=== PATIENT | female | born 1960 | race African-American/Black ===

== ENCOUNTER 2021-04-15 14:56 | Inpatient (IN) ==
[2021-04-15 17:25] LABS: Hemoglobin 10.3 GM/DL (12.0-16.0); Immature Granulocytes % 0.8 %; Immature Granulocytes Absolute 0.04 #; Lymphocytes # 0.8 10*3/uL (1.4-4.0); Mean Corpuscular HGB Conc 31.2 GM/DL (32-36); Mean Corpuscular Volume 81.3 FL (87-102); Mean Platelet Volume 11.9 FL (9.6-12.0); Monocytes % 3.6 % (1.7-12.7); Neutrophils % 79.6 % (38.7-73.9); Platelet Count 210 T/CUMM (130-400); Red Blood Count 4.06 MC/CUMM (3.8-5.5); Red Cell Distribution Width 14.9 % (9.3-17.3)
[2021-04-15 17:34] LABS: Bilirubin,Urine Negative (Negative); Blood, Urine Large mg/dL (Negative); Glucose,Urine (UA) >=500 mg/dL (Negative); Ketones,Urine Negative (Negative); Mucus,Urine Occasional /LPF (Occasional); Nitrite,Urine Negative (Negative); Protein,Urine 100 MG/DL; RBC,Urine 3 /HPF (0-4); Squamous Epithelial Cell,Urine Occasional /HPF (0-10); Urine Appearance Slightly Hazy (Clear); Urine Color Yellow (Yellow); Urine Specific Gravity 1.015 (1.001-1.035); Urine Urobilinogen < 2.0 EU/DL (0.2-1.0)
[2021-04-15 17:40] LABS: Albumin 3.5 G/DL (3.4-5.0); Bilirubin,Total 0.5 MG/DL (0.20-1.00); Osmolality,Calculated 290.1 MOS/KG (273-304); PT Patient Result 10.9 SECS (10.5-12.0); Partial Thromboplastin Time 26.7 SECS (23.9-33.8); Potassium 4.5 MMOL/L (3.5-5.1); Total Protein 7.2 G/DL (6.4-8.2)
[2021-04-15] MEDS ORDERED: SODIUM CHLORIDE 0.9% 1,000 ML IV STA (17:44)
[2021-04-15 19:03] LABS: Band Neutrophils 2 % (0-10); Lymphocytes 9 % (20-55); Microcytosis 1+; Segmented Neutrophils 87 % (50-85); Total Cells Counted 100
[2021-04-15 19:04] LABS: Platelet Estimate Normal
[2021-04-15] MEDS ORDERED: ACETAMINOPHEN 325 MG TABLET PO PRN (21:32)
[2021-04-15] MEDS ORDERED: ONDANSETRON 4 MG/2 ML VIAL IV PRN (21:32)
[2021-04-15] MEDS ORDERED: GLUCAGON 1 MG VIAL IM PRN (21:32)
[2021-04-15] MEDS: INSULIN REGULAR 100 UNIT/ML SUBCUT SCH (22:10)
[2021-04-15] MEDS: DOCUSATE SODIUM 100 MG CAPSULE PO SCH (22:10)
[2021-04-15] MEDS ORDERED: MELATONIN 3 MG TABLET PO PRN (22:55)
[2021-04-16] MEDS: SODIUM CHLORIDE 0.9% 1,000 ML IV SCH ×4 (01:25→21:05)
[2021-04-16] MEDS: INSULIN REGULAR 100 UNIT/ML SUBCUT SCH ×4 (07:55→21:01)
[2021-04-16] MEDS ORDERED: REMDESIVIR 200 MG in SODIUM CHLORIDE 0.9% 210 ML IV ONE (09:00)
[2021-04-16] MEDS: DOCUSATE SODIUM 100 MG CAPSULE PO SCH ×2 (09:25→21:04)
[2021-04-16] MEDS: CHOLECALCIFEROL 1,000 UNIT TABLET PO SCH (09:25)
[2021-04-16] MEDS: ASCORBIC ACID 500 MG TABLET PO SCH ×2 (09:25→21:00)
[2021-04-16] MEDS: FAMOTIDINE 20 MG TABLET PO SCH ×2 (09:25→21:00)
[2021-04-16] MEDS: PANTOPRAZOLE 40 MG TABLET PO SCH (09:25)
[2021-04-16] MEDS: CETIRIZINE 10 MG TABLET PO SCH (09:25)
[2021-04-16] MEDS: DEXAMETHASONE 4 MG/1 ML VIAL IV SCH (09:28)
[2021-04-16] MEDS: ZINC GLUCONATE 50 MG TABLET PO SCH (10:40)
[2021-04-16] MEDS: ASPIRIN CHEW 81 MG TABLET PO SCH (17:04)
[2021-04-16] MEDS: cefTRIAXone 1,000 MG in SODIUM CHLORIDE 0.9% 100 ML IV SCH (17:06)
[2021-04-16] MEDS: METOPROLOL TARTRATE 25 MG TABLET PO SCH (20:59)
[2021-04-16] MEDS: APIXABAN 2.5 MG TABLET PO SCH (21:00)
[2021-04-16] MEDS: INSULIN GLARGINE 100 UNIT/ML SUBCUT SCH (21:01)
[2021-04-16] MEDS: HYDROXYCHLOROQUINE 200 MG TABLET PO SCH (21:07)
[2021-04-17] MEDS: SODIUM CHLORIDE 0.9% 1,000 ML IV SCH ×4 (04:52→23:06)
[2021-04-17] MEDS: DEXAMETHASONE 4 MG/1 ML VIAL IV SCH (08:37)
[2021-04-17] MEDS: HYDROXYCHLOROQUINE 200 MG TABLET PO SCH ×2 (08:37→21:23)
[2021-04-17] MEDS: CETIRIZINE 10 MG TABLET PO SCH (08:37)
[2021-04-17] MEDS: DOCUSATE SODIUM 100 MG CAPSULE PO SCH ×2 (08:37→21:23)
[2021-04-17] MEDS: ZINC GLUCONATE 50 MG TABLET PO SCH (08:37)
[2021-04-17] MEDS: PANTOPRAZOLE 40 MG TABLET PO SCH (08:37)
[2021-04-17] MEDS: APIXABAN 2.5 MG TABLET PO SCH ×2 (08:37→21:22)
[2021-04-17] MEDS: ASPIRIN CHEW 81 MG TABLET PO SCH (08:37)
[2021-04-17] MEDS: CHOLECALCIFEROL 1,000 UNIT TABLET PO SCH (08:37)
[2021-04-17] MEDS: METOPROLOL TARTRATE 25 MG TABLET PO SCH ×2 (08:37→21:22)
[2021-04-17] MEDS: FAMOTIDINE 20 MG TABLET PO SCH ×2 (08:37→21:23)
[2021-04-17] MEDS: ASCORBIC ACID 500 MG TABLET PO SCH ×2 (08:37→21:23)
[2021-04-17] MEDS: INSULIN REGULAR 100 UNIT/ML SUBCUT SCH ×4 (10:12→21:24)
[2021-04-17] MEDS: REMDESIVIR 100 MG in SODIUM CHLORIDE 0.9% 100 ML IV SCH (10:12)
[2021-04-17] MEDS: BENZONATATE 100 MG CAPSULE PO SCH ×2 (14:11→21:22)
[2021-04-17] MEDS: cefTRIAXone 1,000 MG in SODIUM CHLORIDE 0.9% 100 ML IV SCH (17:46)
[2021-04-17] MEDS: INSULIN GLARGINE 100 UNIT/ML SUBCUT SCH (21:24)
[2021-04-18] MEDS: traMADol 50 MG TABLET PO SCH ×4 (02:09→20:23)
[2021-04-18] MEDS: ALBUTEROL INHALER 18 GM INH SCH ×4 (02:09→19:57)
[2021-04-18 05:45] LABS: Albumin 2.6 G/DL (3.4-5.0); Calcium 8.9 MG/DL (8.5-10.1); Osmolality,Calculated 296.7 MOS/KG (273-304); Potassium 4.4 MMOL/L (3.5-5.1); Total Protein 6.6 G/DL (6.4-8.2)
[2021-04-18] MEDS ORDERED: GLIMEPIRIDE 4 MG TABLET PO SCH (08:00)
[2021-04-18] MEDS: methylPREDNISolone SOD SUC 40 MG/1 ML VIAL IV SCH ×2 (08:15→17:32)
[2021-04-18] MEDS ORDERED: LORazepam 2 MG/1 ML VIAL ONE (09:24)
[2021-04-18] MEDS ORDERED: MORPHINE 2 MG/1 ML SYRINGE ONE ×2 (09:25→10:25)
[2021-04-18] MEDS ORDERED: MORPHINE 2 MG/1 ML SYRINGE IV ONE ×2 (09:28→10:26)
[2021-04-18] MEDS ORDERED: LORazepam 2 MG/1 ML VIAL IV ONE (09:28)
[2021-04-18] MEDS ORDERED: ETOMIDATE 20 MG/10 ML VIAL IV ONE ×3 (09:37→09:45)
[2021-04-18] MEDS ORDERED: SUCCINYLCHOLINE 200 MG/10 ML VIAL ONE (09:37)
[2021-04-18] MEDS ORDERED: FUROSEMIDE 40 MG/4 ML VIAL ONE (09:38)
[2021-04-18] MEDS ORDERED: FUROSEMIDE 40 MG/4 ML VIAL IV ONE (09:40)
[2021-04-18] MEDS ORDERED: SODIUM CHLORIDE 0.9% 500 ML IV ONE ×2 (09:54→11:00)
[2021-04-18] MEDS ORDERED: MIDAZOLAM 2 MG/2 ML VIAL ONE ×2 (10:03→10:31)
[2021-04-18] MEDS ORDERED: MIDAZOLAM 2 MG/2 ML VIAL IV ONE ×2 (10:03→10:33)
[2021-04-18] MEDS ORDERED: SODIUM BICARBONATE 50 MEQ/50 ML VIAL IV ONE ×2 (10:28→10:31)
[2021-04-18] MEDS ORDERED: NOREPINEPHRINE 4 MG/4 ML VIAL IV ONE (10:32)
[2021-04-18] MEDS ORDERED: NOREPINEPHRINE 8 MG in SODIUM CHLORIDE 0.9% 242 ML IV PRN (10:39)
[2021-04-18] MEDS: MIDAZOLAM 100 MG in SODIUM CHLORIDE 0.9% 80 ML IV PRN (11:10)
[2021-04-18] MEDS: fentaNYL INJ 1,250 MCG in SODIUM CHLORIDE 0.9% 225 ML IV PRN ×2 (11:20→18:35)
[2021-04-18] MEDS: INSULIN REGULAR 100 UNIT/ML SUBCUT SCH ×4 (11:39→17:46)
[2021-04-18] MEDS: METOPROLOL TARTRATE 25 MG TABLET PO SCH ×2 (11:41→20:24)
[2021-04-18] MEDS: DOCUSATE SODIUM 100 MG CAPSULE PO SCH ×2 (11:41→20:24)
[2021-04-18] MEDS: BUDESONIDE/FORMOTEROL 160-4.5 INHALER 6 GM INH SCH ×2 (11:41→20:24)
[2021-04-18] MEDS: BENZONATATE 100 MG CAPSULE PO SCH ×3 (11:42→20:24)
[2021-04-18] MEDS: SODIUM CHLORIDE 0.9% 1,000 ML IV SCH (11:43)
[2021-04-18] MEDS: HYDROXYCHLOROQUINE 200 MG TABLET PO SCH (11:45)
[2021-04-18] MEDS: ASCORBIC ACID 500 MG TABLET PO SCH ×2 (12:18→20:24)
[2021-04-18] MEDS: PANTOPRAZOLE 40 MG TABLET PO SCH (12:18)
[2021-04-18] MEDS: CHOLECALCIFEROL 1,000 UNIT TABLET PO SCH (12:18)
[2021-04-18] MEDS: ASPIRIN CHEW 81 MG TABLET PO SCH (12:18)
[2021-04-18] MEDS: FAMOTIDINE 20 MG TABLET PO SCH ×2 (12:18→20:24)
[2021-04-18] MEDS: CETIRIZINE 10 MG TABLET PO SCH (12:18)
[2021-04-18] MEDS: DEXAMETHASONE 4 MG/1 ML VIAL IV SCH (12:18)
[2021-04-18] MEDS: ZINC GLUCONATE 50 MG TABLET PO SCH (12:20)
[2021-04-18 12:28] LABS: ABG HCO3 20.6 MMOL/L (20-26); ABG PCO2 45.7 MM HG (35-48); ABG PH 7.292 (7.35-7.45); ABG TCO2 20.2 MMOL/L (23-27)
[2021-04-18 12:29] LABS: ABG Base Excess -4.5 MMOL/L (-2.5-2.5); ABG Oxygen Saturation 63.3 % (95-100)
[2021-04-18 12:30] LABS: ABG PO2 35.5 MM HG (80-95)
[2021-04-18] MEDS: APIXABAN 2.5 MG TABLET PO SCH ×2 (13:18→20:24)
[2021-04-18] MEDS: REMDESIVIR 100 MG in SODIUM CHLORIDE 0.9% 100 ML IV SCH (14:42)
[2021-04-18 14:57] LABS: ABG HCO3 20.3 MMOL/L (20-26); ABG Oxygen Saturation 99.3 % (95-100); ABG PCO2 34.4 MM HG (35-48); ABG PH 7.366 (7.35-7.45); ABG TCO2 17.9 MMOL/L (23-27)
[2021-04-18] MEDS: cefTRIAXone 1,000 MG in SODIUM CHLORIDE 0.9% 100 ML IV SCH (17:33)
[2021-04-18] MEDS: AZITHROMYCIN INJ 250 MG in SODIUM CHLORIDE 0.9% 250 ML IV SCH (21:19)
[2021-04-18] MEDS: INSULIN GLARGINE 100 UNIT/ML SUBCUT SCH (21:20)
[2021-04-19] MEDS: INSULIN REGULAR 100 UNIT/ML SUBCUT SCH ×4 (00:31→17:45)
[2021-04-19] MEDS: SODIUM CHLORIDE 0.9% 1,000 ML IV SCH ×3 (00:32→22:05)
[2021-04-19] MEDS: traMADol 50 MG TABLET PO SCH ×5 (01:49→22:11)
[2021-04-19] MEDS: ALBUTEROL INHALER 18 GM INH SCH ×3 (01:50→22:11)
[2021-04-19] MEDS: fentaNYL INJ 1,250 MCG in SODIUM CHLORIDE 0.9% 225 ML IV PRN ×3 (02:26→20:10)
[2021-04-19] MEDS: methylPREDNISolone SOD SUC 40 MG/1 ML VIAL IV SCH ×3 (02:37→17:40)
[2021-04-19 04:25] LABS: Hematocrit 27.1 VOL% (35.7-47.0); Hemoglobin 8.4 GM/DL (12.0-16.0); Immature Granulocytes % 1.6 %; Immature Granulocytes Absolute 0.07 #; Lymphocytes # 0.4 10*3/uL (1.4-4.0); Lymphocytes % 8.7 % (21.3-54.2); Mean Corpuscular Volume 80.9 FL (87-102); Mean Platelet Volume 11.6 FL (9.6-12.0); Neutrophils % 84.7 % (38.7-73.9); Platelet Count 269 T/CUMM (130-400); Red Blood Count 3.35 MC/CUMM (3.8-5.5); Red Cell Distribution Width 15.4 % (9.3-17.3); White Blood Count 4.4 T/CUMM (4-12)
[2021-04-19 04:41] LABS: ABG Base Excess 0.2 MMOL/L (-2.5-2.5); ABG HCO3 24.4 MMOL/L (20-26); ABG Oxygen Saturation 92.7 % (95-100); ABG PCO2 37.8 MM HG (35-48); ABG PH 7.428 (7.35-7.45); ABG PO2 66.6 MM HG (80-95); ABG TCO2 25.6 MMOL/L (23-27)
[2021-04-19 04:44] LABS: Alanine Aminotransferase 80 U/L (13-56); Alkaline Phosphatase 38 U/L (45-117); Aspartate Amino Transferase 67 U/L (0-37); Bilirubin,Total < 0.39 MG/DL (0.20-1.00); Blood Urea Nitrogen 36 MG/DL (7-18); Carbon Dioxide 25 MMOL/L (21-32); Estimated Glom Filtration Rate 49 ML/MIN; Ferritin 613.4 ng/ml (8-252); Glucose 194 MG/DL (74-106); Osmolality,Calculated 302.6 MOS/KG (273-304); Sodium 146 MMOL/L (136-145); Total Protein 5.3 G/DL (6.4-8.2)
[2021-04-19] MEDS: FAMOTIDINE 20 MG TABLET PO SCH ×2 (09:10→22:11)
[2021-04-19] MEDS: CETIRIZINE 10 MG TABLET PO SCH (09:10)
[2021-04-19] MEDS: APIXABAN 2.5 MG TABLET PO SCH ×2 (09:10→22:12)
[2021-04-19] MEDS: METOPROLOL TARTRATE 25 MG TABLET PO SCH ×2 (09:10→22:12)
[2021-04-19] MEDS: ASCORBIC ACID 500 MG TABLET PO SCH ×2 (09:10→22:10)
[2021-04-19] MEDS: DOCUSATE SODIUM 100 MG CAPSULE PO SCH ×2 (09:10→22:12)
[2021-04-19] MEDS: ASPIRIN CHEW 81 MG TABLET PO SCH (09:11)
[2021-04-19] MEDS: CHOLECALCIFEROL 1,000 UNIT TABLET PO SCH (09:11)
[2021-04-19] MEDS: ZINC GLUCONATE 50 MG TABLET PO SCH (09:11)
[2021-04-19] MEDS: BENZONATATE 100 MG CAPSULE PO SCH ×3 (09:12→22:11)
[2021-04-19] MEDS: REMDESIVIR 100 MG in SODIUM CHLORIDE 0.9% 100 ML IV SCH (09:16)
[2021-04-19] MEDS ORDERED: MAGNESIUM SULF RIDER 2 GM/50 ML PREMIX IV ONE (09:26)
[2021-04-19] MEDS: BUDESONIDE/FORMOTEROL 160-4.5 INHALER 6 GM INH SCH ×2 (09:50→22:11)
[2021-04-19] MEDS ORDERED: ALBUTEROL INHALER 18 GM INH SCH (13:00)
[2021-04-19] MEDS: cefTRIAXone 1,000 MG in SODIUM CHLORIDE 0.9% 100 ML IV SCH (17:35)
[2021-04-19] MEDS: MIDAZOLAM 100 MG in SODIUM CHLORIDE 0.9% 80 ML IV PRN (22:10)
[2021-04-19] MEDS: AZITHROMYCIN INJ 250 MG in SODIUM CHLORIDE 0.9% 250 ML IV SCH (22:12)
[2021-04-19] MEDS: INSULIN GLARGINE 100 UNIT/ML SUBCUT SCH (22:12)
[2021-04-20] MEDS: INSULIN REGULAR 100 UNIT/ML SUBCUT SCH ×5 (00:29→23:54)
[2021-04-20] MEDS: methylPREDNISolone SOD SUC 40 MG/1 ML VIAL IV SCH ×4 (02:18→18:16)
[2021-04-20] MEDS: ALBUTEROL INHALER 18 GM INH SCH ×4 (02:21→20:22)
[2021-04-20] MEDS: traMADol 50 MG TABLET PO SCH ×4 (02:23→20:20)
[2021-04-20] MEDS: fentaNYL INJ 1,250 MCG in SODIUM CHLORIDE 0.9% 225 ML IV PRN ×3 (03:38→19:30)
[2021-04-20 04:16] LABS: ABG Base Excess -0.4 MMOL/L (-2.5-2.5); ABG HCO3 23.7 MMOL/L (20-26); ABG Oxygen Saturation 96.9 % (95-100); ABG PCO2 36.4 MM HG (35-48); ABG PH 7.432 (7.35-7.45); ABG PO2 100.1 MM HG (80-95); ABG TCO2 24.8 MMOL/L (23-27)
[2021-04-20 04:58] LABS: Hematocrit 25.1 VOL% (35.7-47.0); Immature Granulocytes % 1.2 %; Immature Granulocytes Absolute 0.06 #; Lymphocytes # 0.4 10*3/uL (1.4-4.0); Lymphocytes % 8.1 % (21.3-54.2); Mean Corpuscular HGB Conc 31.9 GM/DL (32-36); Mean Corpuscular Volume 82.3 FL (87-102); Monocytes % 6.9 % (1.7-12.7); Neutrophils % 83.8 % (38.7-73.9); Platelet Count 283 T/CUMM (130-400); Red Blood Count 3.05 MC/CUMM (3.8-5.5); Red Cell Distribution Width 15.5 % (9.3-17.3); White Blood Count 5.2 T/CUMM (4-12)
[2021-04-20 05:20] LABS: Albumin 1.8 G/DL (3.4-5.0); Bilirubin,Total 0.8 MG/DL (0.20-1.00); Calcium 7.8 MG/DL (8.5-10.1); Osmolality,Calculated 305.4 MOS/KG (273-304); Potassium 4.1 MMOL/L (3.5-5.1)
[2021-04-20 05:25] LABS: Ferritin 468.1 ng/ml (8-252)
[2021-04-20 05:28] LABS: Lymphocytes 3 % (20-55); Platelet Estimate Normal; Segmented Neutrophils 93 % (50-85); Total Cells Counted 100
[2021-04-20] MEDS: ASPIRIN CHEW 81 MG TABLET PO SCH (08:13)
[2021-04-20] MEDS: CETIRIZINE 10 MG TABLET PO SCH (08:13)
[2021-04-20] MEDS: ASCORBIC ACID 500 MG TABLET PO SCH ×2 (08:14→20:20)
[2021-04-20] MEDS: ZINC GLUCONATE 50 MG TABLET PO SCH (08:14)
[2021-04-20] MEDS: FAMOTIDINE 20 MG TABLET PO SCH ×2 (08:14→20:20)
[2021-04-20] MEDS: APIXABAN 2.5 MG TABLET PO SCH ×2 (08:14→20:21)
[2021-04-20] MEDS: CHOLECALCIFEROL 1,000 UNIT TABLET PO SCH (08:14)
[2021-04-20] MEDS: BUDESONIDE/FORMOTEROL 160-4.5 INHALER 6 GM INH SCH ×2 (08:14→20:22)
[2021-04-20] MEDS ORDERED: LORazepam 2 MG/1 ML VIAL ONE (10:05)
[2021-04-20] MEDS: REMDESIVIR 100 MG in SODIUM CHLORIDE 0.9% 100 ML IV SCH (11:35)
[2021-04-20] MEDS: DOCUSATE SODIUM 100 MG CAPSULE PO SCH ×2 (11:57→20:21)
[2021-04-20] MEDS: METOPROLOL TARTRATE 25 MG TABLET PO SCH ×2 (12:00→20:22)
[2021-04-20] MEDS: BENZONATATE 100 MG CAPSULE PO SCH ×2 (12:01→18:31)
[2021-04-20] MEDS: SODIUM CHLORIDE 0.9% 1,000 ML IV SCH ×2 (12:02→13:30)
[2021-04-20] MEDS: cefTRIAXone 1,000 MG in SODIUM CHLORIDE 0.9% 100 ML IV SCH (16:55)
[2021-04-20] MEDS: AZITHROMYCIN INJ 250 MG in SODIUM CHLORIDE 0.9% 250 ML IV SCH (19:37)
[2021-04-20] MEDS: INSULIN GLARGINE 100 UNIT/ML SUBCUT SCH (20:21)
[2021-04-20] MEDS: MIDAZOLAM 100 MG in SODIUM CHLORIDE 0.9% 80 ML IV PRN (20:54)
[2021-04-21] MEDS: methylPREDNISolone SOD SUC 40 MG/1 ML VIAL IV SCH ×3 (02:06→18:21)
[2021-04-21] MEDS: traMADol 50 MG TABLET PO SCH ×2 (02:06→08:32)
[2021-04-21] MEDS: ALBUTEROL INHALER 18 GM INH SCH ×4 (02:07→20:22)
[2021-04-21] MEDS: fentaNYL INJ 1,250 MCG in SODIUM CHLORIDE 0.9% 225 ML IV PRN ×3 (03:33→20:33)
[2021-04-21 04:16] LABS: ABG Base Excess -1.9 MMOL/L (-2.5-2.5); ABG HCO3 22.8 MMOL/L (20-26); ABG PCO2 42.6 MM HG (35-48); ABG PH 7.352 (7.35-7.45); ABG TCO2 21.4 MMOL/L (23-27)
[2021-04-21 04:38] LABS: Hematocrit 27.8 VOL% (35.7-47.0); Hemoglobin 8.4 GM/DL (12.0-16.0); Immature Granulocytes % 1.9 %; Immature Granulocytes Absolute 0.19 #; Lymphocytes # 0.5 10*3/uL (1.4-4.0); Lymphocytes % 4.8 % (21.3-54.2); Mean Corpuscular HGB Conc 30.2 GM/DL (32-36); Mean Corpuscular Volume 83.2 FL (87-102); Mean Platelet Volume 12.1 FL (9.6-12.0); Monocytes % 5.5 % (1.7-12.7); Neutrophils % 87.8 % (38.7-73.9); Platelet Count 342 T/CUMM (130-400); Red Blood Count 3.34 MC/CUMM (3.8-5.5); Red Cell Distribution Width 15.9 % (9.3-17.3); White Blood Count 9.9 T/CUMM (4-12)
[2021-04-21 04:58] LABS: Albumin 1.9 G/DL (3.4-5.0); Band Neutrophils 1 % (0-10); Bilirubin,Total 0.4 MG/DL (0.20-1.00); Hypochromasia 1+; Lymphocytes 4 % (20-55); Microcytosis 1+; Potassium 4.2 MMOL/L (3.5-5.1); Segmented Neutrophils 93 % (50-85); Total Cells Counted 100
[2021-04-21 04:59] LABS: Platelet Estimate Normal
[2021-04-21] MEDS: INSULIN REGULAR 100 UNIT/ML SUBCUT SCH ×3 (06:30→17:50)
[2021-04-21] MEDS: SODIUM CHLORIDE 0.9% 1,000 ML IV SCH ×2 (07:29→09:42)
[2021-04-21] MEDS: DOCUSATE SODIUM 100 MG CAPSULE PO SCH ×2 (08:32→20:20)
[2021-04-21] MEDS: CHOLECALCIFEROL 1,000 UNIT TABLET PO SCH (08:32)
[2021-04-21] MEDS: APIXABAN 2.5 MG TABLET PO SCH (08:32)
[2021-04-21] MEDS: CETIRIZINE 10 MG TABLET PO SCH (08:32)
[2021-04-21] MEDS: ASCORBIC ACID 500 MG TABLET PO SCH ×2 (08:32→20:22)
[2021-04-21] MEDS: ZINC GLUCONATE 50 MG TABLET PO SCH (08:32)
[2021-04-21] MEDS: ASPIRIN CHEW 81 MG TABLET PO SCH (08:33)
[2021-04-21] MEDS: FAMOTIDINE 20 MG TABLET PO SCH ×2 (08:33→20:22)
[2021-04-21] MEDS: METOPROLOL TARTRATE 25 MG TABLET PO SCH ×3 (08:34→22:13)
[2021-04-21] MEDS ORDERED: APIXABAN 2.5 MG TABLET PO ONE (09:00)
[2021-04-21] MEDS: BUDESONIDE/FORMOTEROL 160-4.5 INHALER 6 GM INH SCH ×2 (09:40→20:22)
[2021-04-21] MEDS: cefTRIAXone 1,000 MG in SODIUM CHLORIDE 0.9% 100 ML IV SCH (17:50)
[2021-04-21] MEDS: AZITHROMYCIN INJ 250 MG in SODIUM CHLORIDE 0.9% 250 ML IV SCH (20:20)
[2021-04-21] MEDS: INSULIN GLARGINE 100 UNIT/ML SUBCUT SCH (20:21)
[2021-04-21] MEDS: APIXABAN 5 MG TABLET PER TUBE SCH (20:21)
[2021-04-22] MEDS: INSULIN REGULAR 100 UNIT/ML SUBCUT SCH ×4 (00:05→18:08)
[2021-04-22] MEDS: ALBUTEROL INHALER 18 GM INH SCH ×4 (03:00→21:13)
[2021-04-22] MEDS: methylPREDNISolone SOD SUC 40 MG/1 ML VIAL IV SCH ×3 (04:48→17:45)
[2021-04-22 04:53] LABS: Basophils % 0.1 % (0.0-0.8); Hematocrit 25.4 VOL% (35.7-47.0); Hemoglobin 7.8 GM/DL (12.0-16.0); Immature Granulocytes % 3.3 %; Lymphocytes # 0.4 10*3/uL (1.4-4.0); Lymphocytes % 4.5 % (21.3-54.2); Mean Corpuscular HGB Conc 30.7 GM/DL (32-36); Mean Platelet Volume 10.9 FL (9.6-12.0); Monocytes % 6.8 % (1.7-12.7); NRBC # 0.03 10*3/uL; Neutrophils % 85.3 % (38.7-73.9); Platelet Count 297 T/CUMM (130-400); Red Blood Count 3.06 MC/CUMM (3.8-5.5); Red Cell Distribution Width 16.2 % (9.3-17.3); White Blood Count 9.1 T/CUMM (4-12)
[2021-04-22] MEDS: fentaNYL INJ 1,250 MCG in SODIUM CHLORIDE 0.9% 225 ML IV PRN ×3 (05:00→22:22)
[2021-04-22 05:11] LABS: Alanine Aminotransferase 36 U/L (13-56); Albumin 1.7 G/DL (3.4-5.0); Alkaline Phosphatase 50 U/L (45-117); Aspartate Amino Transferase 13 U/L (0-37); Bilirubin,Total < 0.39 MG/DL (0.20-1.00); Blood Urea Nitrogen 49 MG/DL (7-18); Calcium 8.1 MG/DL (8.5-10.1); Carbon Dioxide 24 MMOL/L (21-32); Estimated Glom Filtration Rate 73 ML/MIN; Glucose 193 MG/DL (74-106); Lymphocytes 5 % (20-55); Osmolality,Calculated 309.4 MOS/KG (273-304); Potassium 4.3 MMOL/L (3.5-5.1); Segmented Neutrophils 93 % (50-85); Sodium 147 MMOL/L (136-145); Total Cells Counted 100; Total Protein 4.6 G/DL (6.4-8.2)
[2021-04-22 05:12] LABS: Hypochromasia 1+; Microcytosis 1+; Platelet Estimate Adequate
[2021-04-22 05:13] LABS: Ferritin 422.4 ng/ml (8-252)
[2021-04-22 05:18] LABS: ABG Base Excess -3.8 MMOL/L (-2.5-2.5); ABG HCO3 21.7 MMOL/L (20-26); ABG Oxygen Saturation 97.7 % (95-100); ABG PCO2 41.3 MM HG (35-48); ABG PH 7.339 (7.35-7.45); ABG PO2 120.5 MM HG (80-95)
[2021-04-22] MEDS: MIDAZOLAM 100 MG in SODIUM CHLORIDE 0.9% 80 ML IV PRN (07:45)
[2021-04-22] MEDS: APIXABAN 5 MG TABLET PER TUBE SCH ×2 (08:33→21:13)
[2021-04-22] MEDS: CETIRIZINE 10 MG TABLET PO SCH (08:34)
[2021-04-22] MEDS: GABAPENTIN 300 MG CAPSULE PO SCH (08:34)
[2021-04-22] MEDS: SIMVASTATIN 20 MG TABLET PO SCH (08:34)
[2021-04-22] MEDS: METOPROLOL TARTRATE 25 MG TABLET PO SCH ×2 (08:34→21:13)
[2021-04-22] MEDS: ASCORBIC ACID 500 MG TABLET PO SCH ×2 (08:35→21:14)
[2021-04-22] MEDS: ZINC GLUCONATE 50 MG TABLET PO SCH (08:35)
[2021-04-22] MEDS: DOCUSATE SODIUM 100 MG CAPSULE PO SCH ×2 (08:35→21:13)
[2021-04-22] MEDS: ASPIRIN CHEW 81 MG TABLET PO SCH (08:35)
[2021-04-22] MEDS: FAMOTIDINE 20 MG TABLET PO SCH ×2 (08:35→21:13)
[2021-04-22] MEDS: CHOLECALCIFEROL 1,000 UNIT TABLET PO SCH (08:35)
[2021-04-22] MEDS: BUDESONIDE/FORMOTEROL 160-4.5 INHALER 6 GM INH SCH ×2 (08:55→21:13)
[2021-04-22] MEDS: FENOFIBRATE 160 MG TABLET PO SCH (08:55)
[2021-04-22] MEDS ORDERED: amLODIPine 5 MG TABLET PO SCH (09:00)
[2021-04-22] MEDS: cefTRIAXone 1,000 MG in SODIUM CHLORIDE 0.9% 100 ML IV SCH (17:30)
[2021-04-22] MEDS: INSULIN GLARGINE 100 UNIT/ML SUBCUT SCH (21:13)
[2021-04-22] MEDS: AZITHROMYCIN INJ 250 MG in SODIUM CHLORIDE 0.9% 250 ML IV SCH (21:13)
[2021-04-23] MEDS: INSULIN REGULAR 100 UNIT/ML SUBCUT SCH ×4 (00:53→18:54)
[2021-04-23] MEDS: methylPREDNISolone SOD SUC 40 MG/1 ML VIAL IV SCH ×3 (02:47→18:54)
[2021-04-23] MEDS: fentaNYL INJ 1,250 MCG in SODIUM CHLORIDE 0.9% 225 ML IV PRN ×2 (03:30→09:12)
[2021-04-23] MEDS: ALBUTEROL INHALER 18 GM INH SCH ×4 (03:36→20:45)
[2021-04-23 04:39] LABS: Hemoglobin 7.8 GM/DL (12.0-16.0); Immature Granulocytes % 2.3 %; Immature Granulocytes Absolute 0.21 #; Lymphocytes # 0.5 10*3/uL (1.4-4.0); Lymphocytes % 5.2 % (21.3-54.2); Mean Corpuscular Volume 84.1 FL (87-102); Mean Platelet Volume 12.1 FL (9.6-12.0); Monocytes % 5.4 % (1.7-12.7); Neutrophils % 87.1 % (38.7-73.9); Platelet Count 322 T/CUMM (130-400); Red Blood Count 3.09 MC/CUMM (3.8-5.5)
[2021-04-23 05:00] LABS: Alanine Aminotransferase 32 U/L (13-56); Albumin 1.5 G/DL (3.4-5.0); Alkaline Phosphatase 50 U/L (45-117); Aspartate Amino Transferase 10 U/L (0-37); Bilirubin,Total < 0.39 MG/DL (0.20-1.00); Blood Urea Nitrogen 48 MG/DL (7-18); Calcium 8.2 MG/DL (8.5-10.1); Carbon Dioxide 23 MMOL/L (21-32); Estimated Glom Filtration Rate 74 ML/MIN; Glucose 201 MG/DL (74-106); Osmolality,Calculated 306.7 MOS/KG (273-304); Potassium 4.8 MMOL/L (3.5-5.1); Sodium 145 MMOL/L (136-145); Total Protein 4.7 G/DL (6.4-8.2)
[2021-04-23 05:01] LABS: Ferritin 458.9 ng/ml (8-252)
[2021-04-23 05:10] LABS: ABG Base Excess -1.3 MMOL/L (-2.5-2.5); ABG HCO3 23.4 MMOL/L (20-26); ABG Oxygen Saturation 99.3 % (95-100); ABG PCO2 36.7 MM HG (35-48); ABG PH 7.406 (7.35-7.45); ABG TCO2 20.9 MMOL/L (23-27)
[2021-04-23] MEDS: ASPIRIN CHEW 81 MG TABLET PO SCH (09:01)
[2021-04-23] MEDS: APIXABAN 5 MG TABLET PER TUBE SCH ×2 (09:02→20:44)
[2021-04-23] MEDS: DOCUSATE SODIUM 100 MG CAPSULE PO SCH ×2 (09:02→20:44)
[2021-04-23] MEDS: METOPROLOL TARTRATE 25 MG TABLET PO SCH ×2 (09:02→20:45)
[2021-04-23] MEDS: FAMOTIDINE 20 MG TABLET PO SCH ×2 (09:02→20:43)
[2021-04-23] MEDS: GABAPENTIN 300 MG CAPSULE PO SCH (09:02)
[2021-04-23] MEDS: ASCORBIC ACID 500 MG TABLET PO SCH ×2 (09:05→20:44)
[2021-04-23] MEDS: CHOLECALCIFEROL 1,000 UNIT TABLET PO SCH (09:05)
[2021-04-23] MEDS: FENOFIBRATE 160 MG TABLET PO SCH (09:05)
[2021-04-23] MEDS: BUDESONIDE/FORMOTEROL 160-4.5 INHALER 6 GM INH SCH ×2 (09:05→20:45)
[2021-04-23] MEDS: SIMVASTATIN 20 MG TABLET PO SCH (09:06)
[2021-04-23] MEDS: CETIRIZINE 10 MG TABLET PO SCH (09:06)
[2021-04-23] MEDS: ZINC GLUCONATE 50 MG TABLET PO SCH (09:06)
[2021-04-23] MEDS: MIDAZOLAM 100 MG in SODIUM CHLORIDE 0.9% 80 ML IV PRN (12:07)
[2021-04-23] MEDS: fentaNYL INJ 2,500 MCG in SODIUM CHLORIDE 0.9% 75 ML IV PRN (18:22)
[2021-04-23] MEDS: INSULIN GLARGINE 100 UNIT/ML SUBCUT SCH (20:44)
[2021-04-24] MEDS: INSULIN REGULAR 100 UNIT/ML SUBCUT SCH ×5 (00:22→20:56)
[2021-04-24] MEDS: methylPREDNISolone SOD SUC 40 MG/1 ML VIAL IV SCH ×3 (01:57→19:04)
[2021-04-24] MEDS: ALBUTEROL INHALER 18 GM INH SCH ×4 (02:48→20:57)
[2021-04-24 03:29] LABS: Hematocrit 24.8 VOL% (35.7-47.0); Hemoglobin 7.5 GM/DL (12.0-16.0); Immature Granulocytes % 2.4 %; Immature Granulocytes Absolute 0.21 #; Lymphocytes # 0.4 10*3/uL (1.4-4.0); Lymphocytes % 4.9 % (21.3-54.2); Mean Corpuscular HGB Conc 30.2 GM/DL (32-36); Mean Corpuscular Volume 84.1 FL (87-102); Mean Platelet Volume 12.1 FL (9.6-12.0); Monocytes % 5.9 % (1.7-12.7); Neutrophils % 86.8 % (38.7-73.9); Platelet Count 313 T/CUMM (130-400); Red Blood Count 2.95 MC/CUMM (3.8-5.5); Red Cell Distribution Width 15.9 % (9.3-17.3); White Blood Count 8.9 T/CUMM (4-12)
[2021-04-24 03:50] LABS: Calcium 8.3 MG/DL (8.5-10.1); Osmolality,Calculated 309.8 MOS/KG (273-304); Potassium 5.1 MMOL/L (3.5-5.1)
[2021-04-24 03:51] LABS: Hypochromasia 1+; Lymphocytes 4 % (20-55); Platelet Estimate Normal; Segmented Neutrophils 91 % (50-85); Total Cells Counted 100
[2021-04-24 03:52] LABS: Microcytosis Slight
[2021-04-24] MEDS: fentaNYL INJ 2,500 MCG in SODIUM CHLORIDE 0.9% 75 ML IV PRN ×2 (04:34→20:56)
[2021-04-24 04:51] LABS: ABG Base Excess -1.4 MMOL/L (-2.5-2.5); ABG HCO3 23.2 MMOL/L (20-26); ABG Oxygen Saturation 98.7 % (95-100); ABG PCO2 38.9 MM HG (35-48); ABG PH 7.386 (7.35-7.45); ABG TCO2 21.7 MMOL/L (23-27)
[2021-04-24] MEDS: ASPIRIN CHEW 81 MG TABLET PO SCH (08:01)
[2021-04-24] MEDS: ZINC GLUCONATE 50 MG TABLET PO SCH (08:01)
[2021-04-24] MEDS: APIXABAN 5 MG TABLET PER TUBE SCH ×2 (08:01→20:55)
[2021-04-24] MEDS: CETIRIZINE 10 MG TABLET PO SCH (08:01)
[2021-04-24] MEDS: CHOLECALCIFEROL 1,000 UNIT TABLET PO SCH (08:01)
[2021-04-24] MEDS: FENOFIBRATE 160 MG TABLET PO SCH (08:01)
[2021-04-24] MEDS: ASCORBIC ACID 500 MG TABLET PO SCH ×2 (08:01→20:55)
[2021-04-24] MEDS: FAMOTIDINE 20 MG TABLET PO SCH ×2 (08:01→20:55)
[2021-04-24] MEDS: METOPROLOL TARTRATE 25 MG TABLET PO SCH ×2 (08:01→20:56)
[2021-04-24] MEDS: SIMVASTATIN 20 MG TABLET PO SCH (08:01)
[2021-04-24] MEDS: GABAPENTIN 300 MG CAPSULE PO SCH (08:01)
[2021-04-24] MEDS: BUDESONIDE/FORMOTEROL 160-4.5 INHALER 6 GM INH SCH ×2 (08:02→20:57)
[2021-04-24] MEDS: DOCUSATE SODIUM 100 MG CAPSULE PO SCH ×2 (08:02→20:55)
[2021-04-24] MEDS: MIDAZOLAM 100 MG in SODIUM CHLORIDE 0.9% 80 ML IV PRN (19:07)
[2021-04-24] MEDS: INSULIN GLARGINE 100 UNIT/ML SUBCUT SCH (20:56)
[2021-04-25] MEDS: INSULIN REGULAR 100 UNIT/ML SUBCUT SCH ×7 (00:10→23:42)
[2021-04-25] MEDS: methylPREDNISolone SOD SUC 40 MG/1 ML VIAL IV SCH ×4 (01:04→21:38)
[2021-04-25] MEDS: ALBUTEROL INHALER 18 GM INH SCH ×4 (04:05→21:13)
[2021-04-25 04:33] LABS: Basophils % 0.1 % (0.0-0.8); Hemoglobin 8.2 GM/DL (12.0-16.0); Immature Granulocytes % 3.1 %; Lymphocytes # 0.4 10*3/uL (1.4-4.0); Lymphocytes % 4.4 % (21.3-54.2); Mean Corpuscular HGB Conc 31.5 GM/DL (32-36); Mean Corpuscular Volume 80.7 FL (87-102); Mean Platelet Volume 11.3 FL (9.6-12.0); Monocytes % 6.2 % (1.7-12.7); Neutrophils % 86.2 % (38.7-73.9); Platelet Count 313 T/CUMM (130-400); Red Blood Count 3.22 MC/CUMM (3.8-5.5); Red Cell Distribution Width 15.9 % (9.3-17.3); White Blood Count 9.6 T/CUMM (4-12)
[2021-04-25 04:54] LABS: ABG Base Excess 0.4 MMOL/L (-2.5-2.5); ABG Oxygen Saturation 98.5 % (95-100); ABG PCO2 34.1 MM HG (35-48); ABG PH 7.465 (7.35-7.45); ABG PO2 220.1 MM HG (80-95)
[2021-04-25 05:00] LABS: Calcium 8.8 MG/DL (8.5-10.1); Osmolality,Calculated 301.3 MOS/KG (273-304); Potassium 5.1 MMOL/L (3.5-5.1)
[2021-04-25 05:05] LABS: Ferritin 507.4 ng/ml (8-252)
[2021-04-25 05:12] LABS: Lymphocytes 4 % (20-55); Platelet Estimate Adequate; Segmented Neutrophils 91 % (50-85); Total Cells Counted 100
[2021-04-25 05:13] LABS: Hypochromasia 1+; Microcytosis 1+
[2021-04-25] MEDS: CHOLECALCIFEROL 1,000 UNIT TABLET PO SCH (08:40)
[2021-04-25] MEDS: ZINC GLUCONATE 50 MG TABLET PO SCH (08:40)
[2021-04-25] MEDS: CETIRIZINE 10 MG TABLET PO SCH (08:40)
[2021-04-25] MEDS: FENOFIBRATE 160 MG TABLET PO SCH (08:40)
[2021-04-25] MEDS: ASCORBIC ACID 500 MG TABLET PO SCH ×2 (08:40→21:12)
[2021-04-25] MEDS: DOCUSATE SODIUM 100 MG CAPSULE PO SCH ×2 (08:40→21:12)
[2021-04-25] MEDS: ASPIRIN CHEW 81 MG TABLET PO SCH (08:40)
[2021-04-25] MEDS: APIXABAN 5 MG TABLET PER TUBE SCH ×2 (08:40→21:12)
[2021-04-25] MEDS: FAMOTIDINE 20 MG TABLET PO SCH ×2 (08:41→21:12)
[2021-04-25] MEDS: SIMVASTATIN 20 MG TABLET PO SCH (08:41)
[2021-04-25] MEDS: BUDESONIDE/FORMOTEROL 160-4.5 INHALER 6 GM INH SCH ×2 (08:42→21:13)
[2021-04-25] MEDS: GABAPENTIN 300 MG CAPSULE PO SCH (08:42)
[2021-04-25] MEDS: METOPROLOL TARTRATE 25 MG TABLET PO SCH ×2 (08:42→21:13)
[2021-04-25] MEDS: fentaNYL INJ 2,500 MCG in SODIUM CHLORIDE 0.9% 75 ML IV PRN (12:30)
[2021-04-25] MEDS: MIDAZOLAM 100 MG in SODIUM CHLORIDE 0.9% 80 ML IV PRN ×2 (18:17→20:02)
[2021-04-25] MEDS: INSULIN GLARGINE 100 UNIT/ML SUBCUT SCH (21:11)
[2021-04-26] MEDS: ALBUTEROL INHALER 18 GM INH SCH ×4 (02:09→21:11)
[2021-04-26] MEDS: INSULIN REGULAR 100 UNIT/ML SUBCUT SCH ×6 (03:54→23:46)
[2021-04-26 04:33] LABS: Basophils % 0.1 % (0.0-0.8); Hematocrit 24.3 VOL% (35.7-47.0); Hemoglobin 7.5 GM/DL (12.0-16.0); Immature Granulocytes % 2.4 %; Immature Granulocytes Absolute 0.26 #; Lymphocytes # 0.4 10*3/uL (1.4-4.0); Lymphocytes % 3.9 % (21.3-54.2); Mean Corpuscular HGB Conc 30.9 GM/DL (32-36); Mean Corpuscular Volume 82.4 FL (87-102); Mean Platelet Volume 12.1 FL (9.6-12.0); Monocytes % 7.3 % (1.7-12.7); Neutrophils % 86.3 % (38.7-73.9); Platelet Count 304 T/CUMM (130-400); Red Blood Count 2.95 MC/CUMM (3.8-5.5); Red Cell Distribution Width 15.9 % (9.3-17.3)
[2021-04-26 04:40] LABS: Calcium 8.4 MG/DL (8.5-10.1); Potassium 5.5 MMOL/L (3.5-5.1)
[2021-04-26 05:40] LABS: ABG HCO3 27.3 MMOL/L (20-26); ABG PCO2 46.1 MM HG (35-48); ABG PO2 106.1 MM HG (80-95); ABG TCO2 28.7 MMOL/L (23-27)
[2021-04-26] MEDS: fentaNYL INJ 2,500 MCG in SODIUM CHLORIDE 0.9% 75 ML IV PRN ×2 (07:30→13:00)
[2021-04-26 08:09] LABS: Eosinophils 1 % (0-10); Lymphocytes 1 % (20-55); Segmented Neutrophils 93 % (50-85); Total Cells Counted 100
[2021-04-26 08:10] LABS: Hypochromasia 2+; Microcytosis 2+; Platelet Estimate Normal; Polychromasia Slight
[2021-04-26] MEDS ORDERED: DEXMEDETOMIDINE 200 MCG in SODIUM CHLORIDE 0.9% 48 ML IV PRN (08:43)
[2021-04-26] MEDS: DOCUSATE SODIUM 100 MG CAPSULE PO SCH (09:02)
[2021-04-26] MEDS: APIXABAN 5 MG TABLET PER TUBE SCH ×2 (09:02→21:10)
[2021-04-26] MEDS: ASPIRIN CHEW 81 MG TABLET PO SCH (09:02)
[2021-04-26] MEDS: CETIRIZINE 10 MG TABLET PO SCH (09:03)
[2021-04-26] MEDS: SIMVASTATIN 20 MG TABLET PO SCH (09:03)
[2021-04-26] MEDS: FAMOTIDINE 20 MG TABLET PO SCH ×2 (09:03→21:10)
[2021-04-26] MEDS: ASCORBIC ACID 500 MG TABLET PO SCH ×2 (09:03→21:10)
[2021-04-26] MEDS: ZINC GLUCONATE 50 MG TABLET PO SCH (09:03)
[2021-04-26] MEDS: METOPROLOL TARTRATE 25 MG TABLET PO SCH ×2 (09:03→21:11)
[2021-04-26] MEDS: GABAPENTIN 300 MG CAPSULE PO SCH (09:03)
[2021-04-26] MEDS: BUDESONIDE/FORMOTEROL 160-4.5 INHALER 6 GM INH SCH ×2 (09:03→21:11)
[2021-04-26] MEDS: CHOLECALCIFEROL 1,000 UNIT TABLET PO SCH (09:03)
[2021-04-26] MEDS: FENOFIBRATE 160 MG TABLET PO SCH (09:03)
[2021-04-26] MEDS ORDERED: SODIUM POLYSTYRENE SULFATE 15 GM/60 ML BOTTLE PO ONE (11:59)
[2021-04-26] MEDS: methylPREDNISolone SOD SUC 40 MG/1 ML VIAL IV SCH ×2 (12:02→21:47)
[2021-04-26] MEDS: MIDAZOLAM 100 MG in SODIUM CHLORIDE 0.9% 80 ML IV PRN (13:15)
[2021-04-26 17:14] LABS: Calcium 8.7 MG/DL (8.5-10.1); Osmolality,Calculated 295.1 MOS/KG (273-304); Potassium 4.9 MMOL/L (3.5-5.1)
[2021-04-26] MEDS: INSULIN GLARGINE 100 UNIT/ML SUBCUT SCH (21:10)
[2021-04-26] MEDS: DOCUSATE SODIUM 100 MG/10 ML UDCUP PO SCH (21:10)
[2021-04-27] MEDS: ALBUTEROL INHALER 18 GM INH SCH ×4 (02:19→20:53)
[2021-04-27 04:10] LABS: Basophils % 0.1 % (0.0-0.8); Eosinophils % 0.1 % (0.00-10.9); Hematocrit 26.4 VOL% (35.7-47.0); Hemoglobin 8.2 GM/DL (12.0-16.0); Immature Granulocytes % 2.3 %; Immature Granulocytes Absolute 0.42 #; Lymphocytes # 0.7 10*3/uL (1.4-4.0); Lymphocytes % 3.5 % (21.3-54.2); Mean Corpuscular HGB Conc 31.1 GM/DL (32-36); Mean Corpuscular Volume 82.8 FL (87-102); Mean Platelet Volume 11.7 FL (9.6-12.0); Monocytes % 5.5 % (1.7-12.7); Neutrophils % 88.5 % (38.7-73.9); Platelet Count 331 T/CUMM (130-400); Red Blood Count 3.19 MC/CUMM (3.8-5.5); Red Cell Distribution Width 15.6 % (9.3-17.3); White Blood Count 18.6 T/CUMM (4-12)
[2021-04-27 04:22] LABS: Calcium 8.7 MG/DL (8.5-10.1); Osmolality,Calculated 295.4 MOS/KG (273-304); Potassium 4.9 MMOL/L (3.5-5.1)
[2021-04-27] MEDS: INSULIN REGULAR 100 UNIT/ML SUBCUT SCH ×5 (04:25→20:44)
[2021-04-27 04:30] LABS: Ferritin 539.1 ng/ml (8-252)
[2021-04-27 04:58] LABS: ABG Base Excess 4.7 MMOL/L (-2.5-2.5); ABG HCO3 28.7 MMOL/L (20-26); ABG Oxygen Saturation 97.5 % (95-100); ABG PCO2 40.5 MM HG (35-48); ABG PH 7.469 (7.35-7.45); ABG PO2 104.7 MM HG (80-95)
[2021-04-27] MEDS: MIDAZOLAM 100 MG in SODIUM CHLORIDE 0.9% 80 ML IV PRN (08:10)
[2021-04-27] MEDS: BUDESONIDE/FORMOTEROL 160-4.5 INHALER 6 GM INH SCH ×2 (09:11→20:54)
[2021-04-27] MEDS: GABAPENTIN 300 MG CAPSULE PO SCH (09:11)
[2021-04-27] MEDS: APIXABAN 5 MG TABLET PER TUBE SCH ×2 (09:11→20:46)
[2021-04-27] MEDS: ASCORBIC ACID 500 MG TABLET PO SCH ×2 (09:11→20:46)
[2021-04-27] MEDS: FAMOTIDINE 20 MG TABLET PO SCH ×2 (09:11→22:46)
[2021-04-27] MEDS: FENOFIBRATE 160 MG TABLET PO SCH (09:11)
[2021-04-27] MEDS: METOPROLOL TARTRATE 25 MG TABLET PO SCH ×2 (09:11→20:49)
[2021-04-27] MEDS: ASPIRIN CHEW 81 MG TABLET PO SCH (09:11)
[2021-04-27] MEDS: DOCUSATE SODIUM 100 MG/10 ML UDCUP PO SCH ×2 (09:11→20:43)
[2021-04-27] MEDS: ZINC GLUCONATE 50 MG TABLET PO SCH (09:14)
[2021-04-27] MEDS: CHOLECALCIFEROL 1,000 UNIT TABLET PO SCH (09:14)
[2021-04-27] MEDS: SIMVASTATIN 20 MG TABLET PO SCH (09:14)
[2021-04-27] MEDS: CETIRIZINE 10 MG TABLET PO SCH (09:14)
[2021-04-27] MEDS: methylPREDNISolone SOD SUC 40 MG/1 ML VIAL IV SCH ×2 (10:09→22:47)
[2021-04-27 10:30] LABS: Hypochromasia 3+; Platelet Estimate Normal; Polychromasia Slight; Segmented Neutrophils 96 % (50-85); Total Cells Counted 100
[2021-04-27] MEDS: ALBUMIN 25% 25 GM/100 ML VIAL IV SCH ×2 (12:01→19:50)
[2021-04-27] MEDS: FUROSEMIDE 40 MG/4 ML VIAL IV SCH ×2 (15:59→20:45)
[2021-04-27] MEDS: fentaNYL INJ 2,500 MCG in SODIUM CHLORIDE 0.9% 75 ML IV PRN (19:36)
[2021-04-27] MEDS: INSULIN GLARGINE 100 UNIT/ML SUBCUT SCH (20:44)
[2021-04-27] MEDS: QUEtiapine 25 MG TABLET PO SCH (20:47)
[2021-04-28] MEDS: INSULIN REGULAR 100 UNIT/ML SUBCUT SCH ×6 (00:41→20:08)
[2021-04-28] MEDS: ALBUTEROL INHALER 18 GM INH SCH ×4 (03:50→20:49)
[2021-04-28] MEDS: ALBUMIN 25% 25 GM/100 ML VIAL IV SCH (04:10)
[2021-04-28] MEDS: FUROSEMIDE 40 MG/4 ML VIAL IV SCH (04:20)
[2021-04-28 04:54] LABS: ABG Base Excess 10.7 MMOL/L (-2.5-2.5); ABG HCO3 34.4 MMOL/L (20-26); ABG Oxygen Saturation 97.8 % (95-100); ABG PCO2 41.2 MM HG (35-48); ABG PO2 95.4 MM HG (80-95); ABG TCO2 32.1 MMOL/L (23-27)
[2021-04-28 05:26] LABS: Immature Granulocytes % 1.7 %; Immature Granulocytes Absolute 0.16 #; Lymphocytes # 0.4 10*3/uL (1.4-4.0); Lymphocytes % 4.2 % (21.3-54.2); Mean Corpuscular HGB Conc 31.9 GM/DL (32-36); Mean Corpuscular Volume 80.8 FL (87-102); Mean Platelet Volume 12.7 FL (9.6-12.0); Monocytes % 7.3 % (1.7-12.7); Neutrophils % 86.8 % (38.7-73.9); Red Cell Distribution Width 15.3 % (9.3-17.3)
[2021-04-28 05:44] LABS: Platelet Count 249 T/CUMM (130-400); White Blood Count 9.5 T/CUMM (4-12)
[2021-04-28 05:45] LABS: Hemoglobin 6.7 GM/DL (12.0-16.0)
[2021-04-28 05:49] LABS: Osmolality,Calculated 296.5 MOS/KG (273-304); Potassium 3.8 MMOL/L (3.5-5.1)
[2021-04-28 05:59] LABS: Hypochromasia 1+; Lymphocytes 3 % (20-55); Microcytosis Slight; Platelet Estimate Normal; Segmented Neutrophils 90 % (50-85); Total Cells Counted 100
[2021-04-28] MEDS: fentaNYL INJ 2,500 MCG in SODIUM CHLORIDE 0.9% 75 ML IV PRN (08:19)
[2021-04-28] MEDS ORDERED: SODIUM CHLORIDE 0.9% 1,000 ML IV PRN (08:51)
[2021-04-28] MEDS: DOCUSATE SODIUM 100 MG/10 ML UDCUP PO SCH ×2 (09:01→20:16)
[2021-04-28] MEDS: FENOFIBRATE 160 MG TABLET PO SCH (09:01)
[2021-04-28] MEDS: CHOLECALCIFEROL 1,000 UNIT TABLET PO SCH (09:01)
[2021-04-28] MEDS: SIMVASTATIN 20 MG TABLET PO SCH (09:01)
[2021-04-28] MEDS: APIXABAN 5 MG TABLET PER TUBE SCH ×2 (09:01→20:16)
[2021-04-28] MEDS: ZINC GLUCONATE 50 MG TABLET PO SCH (09:01)
[2021-04-28] MEDS: ASPIRIN CHEW 81 MG TABLET PO SCH (09:02)
[2021-04-28] MEDS: GABAPENTIN 300 MG CAPSULE PO SCH (09:02)
[2021-04-28] MEDS: METOPROLOL TARTRATE 25 MG TABLET PO SCH ×2 (09:36→20:16)
[2021-04-28] MEDS: methylPREDNISolone SOD SUC 40 MG/1 ML VIAL IV SCH ×2 (10:04→21:30)
[2021-04-28] MEDS: ASCORBIC ACID 500 MG TABLET PO SCH ×2 (10:05→20:16)
[2021-04-28] MEDS: CETIRIZINE 10 MG TABLET PO SCH (10:05)
[2021-04-28] MEDS: MIDAZOLAM 100 MG in SODIUM CHLORIDE 0.9% 80 ML IV PRN (11:46)
[2021-04-28] MEDS: METOPROLOL TARTRATE 5 MG/5 ML VIAL IV PRN (12:25)
[2021-04-28] MEDS: BUDESONIDE/FORMOTEROL 160-4.5 INHALER 6 GM INH SCH ×2 (12:30→20:49)
[2021-04-28] MEDS: FAMOTIDINE 20 MG TABLET PO SCH ×2 (13:12→20:16)
[2021-04-28] MEDS: QUEtiapine 25 MG TABLET PO SCH (20:16)
[2021-04-28] MEDS: INSULIN GLARGINE 100 UNIT/ML SUBCUT SCH (20:49)
[2021-04-29] MEDS: INSULIN REGULAR 100 UNIT/ML SUBCUT SCH ×7 (00:46→23:42)
[2021-04-29] MEDS: MIDAZOLAM 100 MG in SODIUM CHLORIDE 0.9% 80 ML IV PRN ×2 (02:31→19:10)
[2021-04-29] MEDS: ALBUTEROL INHALER 18 GM INH SCH ×4 (02:32→21:16)
[2021-04-29 03:08] LABS: ABG Base Excess 10.6 MMOL/L (-2.5-2.5); ABG HCO3 34.4 MMOL/L (20-26); ABG Oxygen Saturation 96.5 % (95-100); ABG PH 7.566 (7.35-7.45); ABG PO2 78.9 MM HG (80-95); Allen Test Positive; Pt O2 Delivery Device Ventilator
[2021-04-29] MEDS: fentaNYL INJ 2,500 MCG in SODIUM CHLORIDE 0.9% 75 ML IV PRN (03:34)
[2021-04-29 04:07] LABS: Basophils % 0.1 % (0.0-0.8); Hematocrit 32.3 VOL% (35.7-47.0); Hemoglobin 10.5 GM/DL (12.0-16.0); Immature Granulocytes % 1.6 %; Immature Granulocytes Absolute 0.21 #; Lymphocytes # 0.7 10*3/uL (1.4-4.0); Mean Corpuscular HGB Conc 32.5 GM/DL (32-36); Mean Corpuscular Volume 79.8 FL (87-102); Mean Platelet Volume 11.9 FL (9.6-12.0); Monocytes % 8.1 % (1.7-12.7); Neutrophils % 85.2 % (38.7-73.9); Platelet Count 266 T/CUMM (130-400); Red Blood Count 4.05 MC/CUMM (3.8-5.5); Red Cell Distribution Width 15.1 % (9.3-17.3); White Blood Count 13.3 T/CUMM (4-12)
[2021-04-29 04:31] LABS: Calcium 9.2 MG/DL (8.5-10.1); Osmolality,Calculated 298.3 MOS/KG (273-304); Potassium 3.8 MMOL/L (3.5-5.1)
[2021-04-29] MEDS: APIXABAN 5 MG TABLET PER TUBE SCH ×2 (08:23→20:54)
[2021-04-29] MEDS: FENOFIBRATE 160 MG TABLET PO SCH (08:24)
[2021-04-29] MEDS: ASCORBIC ACID 500 MG TABLET PO SCH ×2 (08:24→20:54)
[2021-04-29] MEDS: CETIRIZINE 10 MG TABLET PO SCH (08:24)
[2021-04-29] MEDS: CHOLECALCIFEROL 1,000 UNIT TABLET PO SCH (08:24)
[2021-04-29] MEDS: METOPROLOL TARTRATE 25 MG TABLET PO SCH ×2 (08:24→21:52)
[2021-04-29] MEDS: SIMVASTATIN 20 MG TABLET PO SCH (08:24)
[2021-04-29] MEDS: DOCUSATE SODIUM 100 MG/10 ML UDCUP PO SCH ×2 (08:24→20:54)
[2021-04-29] MEDS: FAMOTIDINE 20 MG TABLET PO SCH ×2 (08:24→20:55)
[2021-04-29] MEDS: ZINC GLUCONATE 50 MG TABLET PO SCH (08:24)
[2021-04-29] MEDS: ASPIRIN CHEW 81 MG TABLET PO SCH (08:24)
[2021-04-29] MEDS: GABAPENTIN 300 MG CAPSULE PO SCH (08:25)
[2021-04-29] MEDS: amLODIPine 5 MG TABLET PO SCH (08:27)
[2021-04-29] MEDS: BUDESONIDE/FORMOTEROL 160-4.5 INHALER 6 GM INH SCH ×2 (08:40→21:16)
[2021-04-29] MEDS: methylPREDNISolone SOD SUC 40 MG/1 ML VIAL IV SCH ×2 (10:35→23:21)
[2021-04-29] MEDS: INSULIN GLARGINE 100 UNIT/ML SUBCUT SCH (20:55)
[2021-04-29] MEDS: QUEtiapine 25 MG TABLET PO SCH (20:55)
[2021-04-30] MEDS: fentaNYL INJ 2,500 MCG in SODIUM CHLORIDE 0.9% 75 ML IV PRN ×2 (03:38→23:37)
[2021-04-30] MEDS: ALBUTEROL INHALER 18 GM INH SCH ×4 (03:47→20:59)
[2021-04-30 04:11] LABS: ABG Base Excess 7.3 MMOL/L (-2.5-2.5); ABG HCO3 31.1 MMOL/L (20-26); ABG Oxygen Saturation 98.3 % (95-100); ABG PCO2 41.7 MM HG (35-48); ABG PH 7.485 (7.35-7.45); Allen Test Positive; Pt O2 Delivery Device Ventilator
[2021-04-30 04:19] LABS: Basophils % 0.1 % (0.0-0.8); Eosinophils % 0.1 % (0.00-10.9); Hematocrit 33.3 VOL% (35.7-47.0); Hemoglobin 10.8 GM/DL (12.0-16.0); Immature Granulocytes Absolute 0.15 #; Lymphocytes # 0.5 10*3/uL (1.4-4.0); Lymphocytes % 3.4 % (21.3-54.2); Mean Corpuscular HGB Conc 32.4 GM/DL (32-36); Mean Platelet Volume 12.8 FL (9.6-12.0); Monocytes % 5.1 % (1.7-12.7); Neutrophils % 90.3 % (38.7-73.9); Platelet Count 302 T/CUMM (130-400); Red Blood Count 4.06 MC/CUMM (3.8-5.5); Red Cell Distribution Width 15.5 % (9.3-17.3); White Blood Count 14.4 T/CUMM (4-12)
[2021-04-30] MEDS: INSULIN REGULAR 100 UNIT/ML SUBCUT SCH ×5 (04:25→20:57)
[2021-04-30 04:43] LABS: Albumin 2.8 G/DL (3.4-5.0); Bilirubin,Total 0.9 MG/DL (0.20-1.00); Calcium 9.4 MG/DL (8.5-10.1); Osmolality,Calculated 295.7 MOS/KG (273-304); Potassium 4.1 MMOL/L (3.5-5.1); Total Protein 6.4 G/DL (6.4-8.2)
[2021-04-30 05:00] LABS: Hypochromasia 1+; Lymphocytes 2 % (20-55); Microcytosis 1+; Platelet Estimate Adequate; Segmented Neutrophils 93 % (50-85); Total Cells Counted 100
[2021-04-30] MEDS: DOCUSATE SODIUM 100 MG/10 ML UDCUP PO SCH ×2 (09:27→20:58)
[2021-04-30] MEDS: FENOFIBRATE 160 MG TABLET PO SCH (09:28)
[2021-04-30] MEDS: SIMVASTATIN 20 MG TABLET PO SCH (09:28)
[2021-04-30] MEDS: ASCORBIC ACID 500 MG TABLET PO SCH ×2 (09:28→20:57)
[2021-04-30] MEDS: ZINC GLUCONATE 50 MG TABLET PO SCH (09:28)
[2021-04-30] MEDS: FAMOTIDINE 20 MG TABLET PO SCH ×2 (09:28→20:59)
[2021-04-30] MEDS: ASPIRIN CHEW 81 MG TABLET PO SCH (09:28)
[2021-04-30] MEDS: GABAPENTIN 300 MG CAPSULE PO SCH (09:28)
[2021-04-30] MEDS: amLODIPine 5 MG TABLET PO SCH (09:28)
[2021-04-30] MEDS: APIXABAN 5 MG TABLET PER TUBE SCH ×2 (09:28→20:57)
[2021-04-30] MEDS: CHOLECALCIFEROL 1,000 UNIT TABLET PO SCH (09:34)
[2021-04-30] MEDS: BUDESONIDE/FORMOTEROL 160-4.5 INHALER 6 GM INH SCH ×2 (09:34→20:59)
[2021-04-30] MEDS: CETIRIZINE 10 MG TABLET PO SCH (09:34)
[2021-04-30] MEDS: METOPROLOL TARTRATE 25 MG TABLET PO SCH ×3 (09:34→20:58)
[2021-04-30] MEDS: methylPREDNISolone SOD SUC 40 MG/1 ML VIAL IV SCH ×2 (10:57→22:32)
[2021-04-30] MEDS ORDERED: SODIUM CHLORIDE 0.9% 500 ML IV ONE (13:03)
[2021-04-30] MEDS: MIDAZOLAM 100 MG in SODIUM CHLORIDE 0.9% 80 ML IV PRN (15:28)
[2021-04-30] MEDS: QUEtiapine 25 MG TABLET PO SCH (20:57)
[2021-04-30] MEDS: INSULIN GLARGINE 100 UNIT/ML SUBCUT SCH (20:58)
[2021-04-30] MEDS: levETIRAcetam LIQUID 100 MG/ML 30 ML/BOTTLE PO SCH (20:59)
[2021-05-01] MEDS: INSULIN REGULAR 100 UNIT/ML SUBCUT SCH ×6 (00:31→20:48)
[2021-05-01] MEDS: ALBUTEROL INHALER 18 GM INH SCH ×4 (02:49→20:50)
[2021-05-01] MEDS: MIDAZOLAM 100 MG in SODIUM CHLORIDE 0.9% 80 ML IV PRN (04:00)
[2021-05-01 04:39] LABS: ABG HCO3 26.7 MMOL/L (20-26); ABG Oxygen Saturation 98.4 % (95-100); ABG PH 7.526 (7.35-7.45); ABG PO2 184.7 MM HG (80-95); ABG TCO2 27.7 MMOL/L (23-27)
[2021-05-01 04:47] LABS: Basophils % 0.1 % (0.0-0.8); Hematocrit 26.9 VOL% (35.7-47.0); Immature Granulocytes % 0.6 %; Immature Granulocytes Absolute 0.05 #; Lymphocytes # 0.6 10*3/uL (1.4-4.0); Lymphocytes % 7.1 % (21.3-54.2); Mean Corpuscular HGB Conc 32.3 GM/DL (32-36); Mean Corpuscular Volume 82.3 FL (87-102); Mean Platelet Volume 12.7 FL (9.6-12.0); Monocytes % 5.6 % (1.7-12.7); Neutrophils % 86.6 % (38.7-73.9); Red Blood Count 3.27 MC/CUMM (3.8-5.5); Red Cell Distribution Width 15.2 % (9.3-17.3)
[2021-05-01 04:54] LABS: White Blood Count 8.3 T/CUMM (4-12)
[2021-05-01 04:55] LABS: Hemoglobin 8.7 GM/DL (12.0-16.0); Platelet Count 175 T/CUMM (130-400)
[2021-05-01 05:04] LABS: Calcium 8.8 MG/DL (8.5-10.1); Osmolality,Calculated 295.4 MOS/KG (273-304)
[2021-05-01 05:13] LABS: Hypochromasia 1+; Microcytosis 1+; Platelet Estimate Adequate
[2021-05-01] MEDS: levETIRAcetam LIQUID 100 MG/ML 30 ML/BOTTLE PO SCH ×3 (05:36→20:50)
[2021-05-01] MEDS: DOCUSATE SODIUM 100 MG/10 ML UDCUP PO SCH ×2 (08:37→20:49)
[2021-05-01] MEDS: ZINC GLUCONATE 50 MG TABLET PO SCH (08:38)
[2021-05-01] MEDS: FAMOTIDINE 20 MG TABLET PO SCH ×2 (08:38→20:49)
[2021-05-01] MEDS: ASCORBIC ACID 500 MG TABLET PO SCH ×2 (08:38→20:49)
[2021-05-01] MEDS: CHOLECALCIFEROL 1,000 UNIT TABLET PO SCH (08:38)
[2021-05-01] MEDS: FENOFIBRATE 160 MG TABLET PO SCH (08:38)
[2021-05-01] MEDS: GABAPENTIN 300 MG CAPSULE PO SCH (08:38)
[2021-05-01] MEDS: CETIRIZINE 10 MG TABLET PO SCH (08:38)
[2021-05-01] MEDS: ASPIRIN CHEW 81 MG TABLET PO SCH (08:38)
[2021-05-01] MEDS: SIMVASTATIN 20 MG TABLET PO SCH (08:38)
[2021-05-01] MEDS: APIXABAN 5 MG TABLET PER TUBE SCH ×2 (08:38→20:49)
[2021-05-01] MEDS: BUDESONIDE/FORMOTEROL 160-4.5 INHALER 6 GM INH SCH ×2 (08:48→20:50)
[2021-05-01] MEDS: amLODIPine 5 MG TABLET PO SCH (08:48)
[2021-05-01] MEDS: METOPROLOL TARTRATE 25 MG TABLET PO SCH ×2 (08:48→20:30)
[2021-05-01] MEDS: methylPREDNISolone SOD SUC 40 MG/1 ML VIAL IV SCH ×2 (10:49→21:52)
[2021-05-01] MEDS: METOPROLOL TARTRATE 5 MG/5 ML VIAL IV PRN ×2 (10:51→22:14)
[2021-05-01] MEDS: MENTHOL/ZINC OXIDE OINT 71 GM JAR TOP SCH ×2 (14:32→20:50)
[2021-05-01] MEDS: fentaNYL INJ 2,500 MCG in SODIUM CHLORIDE 0.9% 75 ML IV PRN (20:47)
[2021-05-01] MEDS: INSULIN GLARGINE 100 UNIT/ML SUBCUT SCH (20:48)
[2021-05-01] MEDS: QUEtiapine 25 MG TABLET PO SCH (20:49)
[2021-05-02] MEDS: INSULIN REGULAR 100 UNIT/ML SUBCUT SCH ×6 (00:25→21:28)
[2021-05-02] MEDS: ALBUTEROL INHALER 18 GM INH SCH ×4 (02:58→21:29)
[2021-05-02 03:52] LABS: ABG Base Excess 4.4 MMOL/L (-2.5-2.5); ABG HCO3 27.3 MMOL/L (20-26); ABG Oxygen Saturation 97.9 % (95-100); ABG PCO2 34.8 MM HG (35-48); ABG PH 7.513 (7.35-7.45); ABG PO2 143.1 MM HG (80-95); ABG TCO2 28.4 MMOL/L (23-27)
[2021-05-02 03:54] LABS: Basophils % 0.1 % (0.0-0.8); Hematocrit 28.3 VOL% (35.7-47.0); Hemoglobin 9.2 GM/DL (12.0-16.0); Immature Granulocytes % 0.7 %; Immature Granulocytes Absolute 0.06 #; Lymphocytes # 0.5 10*3/uL (1.4-4.0); Lymphocytes % 6.1 % (21.3-54.2); Mean Corpuscular HGB Conc 32.5 GM/DL (32-36); Mean Corpuscular Volume 81.3 FL (87-102); Mean Platelet Volume 12.7 FL (9.6-12.0); Neutrophils % 87.1 % (38.7-73.9); Platelet Count 263 T/CUMM (130-400); Red Blood Count 3.48 MC/CUMM (3.8-5.5); Red Cell Distribution Width 15.2 % (9.3-17.3); White Blood Count 8.6 T/CUMM (4-12)
[2021-05-02] MEDS: levETIRAcetam LIQUID 100 MG/ML 30 ML/BOTTLE PO SCH ×3 (04:04→21:28)
[2021-05-02 04:09] LABS: Calcium 8.9 MG/DL (8.5-10.1); Osmolality,Calculated 297.1 MOS/KG (273-304); Potassium 4.4 MMOL/L (3.5-5.1)
[2021-05-02] MEDS: METOPROLOL TARTRATE 5 MG/5 ML VIAL IV PRN ×3 (04:19→10:40)
[2021-05-02] MEDS ORDERED: SODIUM CHLORIDE 0.9% 500 ML IV ONE (08:01)
[2021-05-02] MEDS: ZINC GLUCONATE 50 MG TABLET PO SCH (08:28)
[2021-05-02] MEDS: CHOLECALCIFEROL 1,000 UNIT TABLET PO SCH (08:28)
[2021-05-02] MEDS: ASPIRIN CHEW 81 MG TABLET PO SCH (08:28)
[2021-05-02] MEDS: FAMOTIDINE 20 MG TABLET PO SCH ×2 (08:28→21:28)
[2021-05-02] MEDS: FENOFIBRATE 160 MG TABLET PO SCH (08:28)
[2021-05-02] MEDS: SIMVASTATIN 20 MG TABLET PO SCH (08:29)
[2021-05-02] MEDS: CETIRIZINE 10 MG TABLET PO SCH (08:29)
[2021-05-02] MEDS: ASCORBIC ACID 500 MG TABLET PO SCH ×2 (08:29→21:28)
[2021-05-02] MEDS: APIXABAN 5 MG TABLET PER TUBE SCH ×2 (08:29→21:28)
[2021-05-02] MEDS: GABAPENTIN 300 MG CAPSULE PO SCH (08:29)
[2021-05-02] MEDS: amLODIPine 5 MG TABLET PO SCH (08:30)
[2021-05-02] MEDS: MENTHOL/ZINC OXIDE OINT 71 GM JAR TOP SCH ×2 (08:30→20:55)
[2021-05-02] MEDS: METOPROLOL TARTRATE 25 MG TABLET PO SCH ×2 (08:30→21:11)
[2021-05-02] MEDS: DOCUSATE SODIUM 100 MG/10 ML UDCUP PO SCH ×2 (08:30→21:28)
[2021-05-02] MEDS: BUDESONIDE/FORMOTEROL 160-4.5 INHALER 6 GM INH SCH ×2 (08:31→21:29)
[2021-05-02] MEDS: methylPREDNISolone SOD SUC 40 MG/1 ML VIAL IV SCH ×2 (10:56→22:17)
[2021-05-02] MEDS ORDERED: MORPHINE 2 MG/1 ML SYRINGE IV ONE (10:57)
[2021-05-02 11:18] LABS: ABG HCO3 27.1 MMOL/L (20-26); ABG Oxygen Saturation 96.5 % (95-100); ABG PCO2 46.6 MM HG (35-48); ABG PH 7.395 (7.35-7.45); ABG PO2 89.7 MM HG (80-95); ABG TCO2 25.6 MMOL/L (23-27)
[2021-05-02] MEDS: MORPHINE 2 MG/1 ML SYRINGE IV PRN (15:30)
[2021-05-02] MEDS ORDERED: METOPROLOL TARTRATE 5 MG/5 ML VIAL IV ONE (15:33)
[2021-05-02] MEDS ORDERED: FUROSEMIDE 40 MG/4 ML VIAL IV ONE (18:28)
[2021-05-02] MEDS ORDERED: SUCCINYLCHOLINE 200 MG/10 ML VIAL ONE (18:59)
[2021-05-02] MEDS ORDERED: ETOMIDATE 20 MG/10 ML VIAL IV ONE ×2 (18:59→19:08)
[2021-05-02] MEDS ORDERED: SUCCINYLCHOLINE 200 MG/10 ML VIAL IV ONE (19:08)
[2021-05-02] MEDS: cloNIDine 0.3 MG/24 HR PATCH TRANSDERM SCH (19:47)
[2021-05-02 20:04] LABS: ABG Base Excess 1.2 MMOL/L (-2.5-2.5); ABG HCO3 25.3 MMOL/L (20-26); ABG Oxygen Saturation 91.5 % (95-100); ABG PCO2 43.3 MM HG (35-48); ABG PH 7.393 (7.35-7.45); ABG PO2 64.6 MM HG (80-95); ABG TCO2 23.2 MMOL/L (23-27)
[2021-05-02] MEDS: MIDAZOLAM 100 MG in SODIUM CHLORIDE 0.9% 80 ML IV PRN (20:14)
[2021-05-02] MEDS: NOREPINEPHRINE 8 MG in SODIUM CHLORIDE 0.9% 242 ML IV PRN (20:35)
[2021-05-02] MEDS: INSULIN GLARGINE 100 UNIT/ML SUBCUT SCH (21:27)
[2021-05-03] MEDS: INSULIN REGULAR 100 UNIT/ML SUBCUT SCH ×6 (00:08→20:52)
[2021-05-03] MEDS: ALBUTEROL INHALER 18 GM INH SCH ×4 (02:40→20:54)
[2021-05-03 03:57] LABS: ABG Base Excess 4.9 MMOL/L (-2.5-2.5); ABG Oxygen Saturation 99.2 % (95-100); ABG PCO2 27.9 MM HG (35-48); ABG PH 7.587 (7.35-7.45); ABG PO2 291.5 MM HG (80-95); ABG TCO2 26.8 MMOL/L (23-27)
[2021-05-03 04:10] LABS: Basophils # 0.1 10*3/uL (0.0-0.2); Basophils % 0.2 % (0.0-0.8); Hematocrit 34.1 VOL% (35.7-47.0); Immature Granulocytes % 0.8 %; Immature Granulocytes Absolute 0.25 #; Lymphocytes # 1.2 10*3/uL (1.4-4.0); Lymphocytes % 4.1 % (21.3-54.2); Mean Corpuscular HGB Conc 33.4 GM/DL (32-36); Mean Platelet Volume 12.2 FL (9.6-12.0); Neutrophils % 90.9 % (38.7-73.9); Platelet Count 379 T/CUMM (130-400); Red Blood Count 4.21 MC/CUMM (3.8-5.5); Red Cell Distribution Width 15.3 % (9.3-17.3); White Blood Count 29.5 T/CUMM (4-12)
[2021-05-03 04:22] LABS: Hemoglobin 11.4 GM/DL (12.0-16.0)
[2021-05-03 04:38] LABS: Calcium 9.5 MG/DL (8.5-10.1); Osmolality,Calculated 293.3 MOS/KG (273-304)
[2021-05-03 04:44] LABS: Lymphocytes 3 % (20-55); Platelet Estimate Normal; Segmented Neutrophils 95 % (50-85); Total Cells Counted 100
[2021-05-03] MEDS: levETIRAcetam LIQUID 100 MG/ML 30 ML/BOTTLE PO SCH ×3 (05:54→20:51)
[2021-05-03] MEDS: ASPIRIN CHEW 81 MG TABLET PO SCH (09:04)
[2021-05-03] MEDS: GABAPENTIN 300 MG CAPSULE PO SCH (09:04)
[2021-05-03] MEDS: ZINC GLUCONATE 50 MG TABLET PO SCH (09:04)
[2021-05-03] MEDS: FAMOTIDINE 20 MG TABLET PO SCH ×2 (09:04→20:52)
[2021-05-03] MEDS: amLODIPine 5 MG TABLET PO SCH ×2 (09:04→09:20)
[2021-05-03] MEDS: FENOFIBRATE 160 MG TABLET PO SCH (09:04)
[2021-05-03] MEDS: CETIRIZINE 10 MG TABLET PO SCH (09:04)
[2021-05-03] MEDS: ASCORBIC ACID 500 MG TABLET PO SCH ×2 (09:04→20:52)
[2021-05-03] MEDS: SIMVASTATIN 20 MG TABLET PO SCH (09:04)
[2021-05-03] MEDS: BUDESONIDE/FORMOTEROL 160-4.5 INHALER 6 GM INH SCH ×2 (09:05→20:54)
[2021-05-03] MEDS: APIXABAN 5 MG TABLET PER TUBE SCH ×2 (09:05→20:52)
[2021-05-03] MEDS: METOPROLOL TARTRATE 25 MG TABLET PO SCH ×2 (09:05→20:54)
[2021-05-03] MEDS: DOCUSATE SODIUM 100 MG/10 ML UDCUP PO SCH ×2 (09:05→20:52)
[2021-05-03] MEDS: CHOLECALCIFEROL 1,000 UNIT TABLET PO SCH (09:05)
[2021-05-03] MEDS: MENTHOL/ZINC OXIDE OINT 71 GM JAR TOP SCH ×2 (09:05→20:53)
[2021-05-03] MEDS: methylPREDNISolone SOD SUC 40 MG/1 ML VIAL IV SCH ×2 (09:51→22:24)
[2021-05-03] MEDS: NOREPINEPHRINE 8 MG in SODIUM CHLORIDE 0.9% 242 ML IV PRN ×2 (12:17→22:46)
[2021-05-03] MEDS: MIDAZOLAM 100 MG in SODIUM CHLORIDE 0.9% 80 ML IV PRN (16:43)
[2021-05-03] MEDS: INSULIN GLARGINE 100 UNIT/ML SUBCUT SCH (20:53)
[2021-05-04] MEDS: INSULIN REGULAR 100 UNIT/ML SUBCUT SCH ×6 (00:29→21:19)
[2021-05-04] MEDS: ALBUTEROL INHALER 18 GM INH SCH ×4 (03:05→21:22)
[2021-05-04 03:58] LABS: ABG Base Excess 5.7 MMOL/L (-2.5-2.5); ABG HCO3 28.3 MMOL/L (20-26); ABG Oxygen Saturation 98.5 % (95-100); ABG PH 7.538 (7.35-7.45); ABG PO2 147.3 MM HG (80-95); ABG TCO2 29.3 MMOL/L (23-27)
[2021-05-04 04:01] LABS: Basophils % 0.1 % (0.0-0.8); Eosinophils # 0.1 10*3/uL (0.0-0.87); Eosinophils % 0.6 % (0.00-10.9); Hematocrit 31.8 VOL% (35.7-47.0); Immature Granulocytes Absolute 0.19 #; Lymphocytes # 0.7 10*3/uL (1.4-4.0); Lymphocytes % 3.9 % (21.3-54.2); Mean Corpuscular HGB Conc 31.4 GM/DL (32-36); Mean Corpuscular Volume 84.4 FL (87-102); Mean Platelet Volume 12.2 FL (9.6-12.0); Neutrophils % 92.4 % (38.7-73.9); Platelet Count 300 T/CUMM (130-400); Red Blood Count 3.77 MC/CUMM (3.8-5.5); Red Cell Distribution Width 15.5 % (9.3-17.3); White Blood Count 18.3 T/CUMM (4-12)
[2021-05-04 04:25] LABS: Lymphocytes 1 % (20-55); Platelet Estimate Adequate; Segmented Neutrophils 97 % (50-85); Total Cells Counted 100
[2021-05-04 04:26] LABS: Hypochromasia 1+; Microcytosis 1+
[2021-05-04 04:33] LABS: Calcium 9.5 MG/DL (8.5-10.1); Osmolality,Calculated 301.8 MOS/KG (273-304)
[2021-05-04] MEDS: levETIRAcetam LIQUID 100 MG/ML 30 ML/BOTTLE PO SCH ×3 (04:53→21:22)
[2021-05-04] MEDS: MIDAZOLAM 100 MG in SODIUM CHLORIDE 0.9% 80 ML IV PRN ×2 (06:01→22:52)
[2021-05-04] MEDS: MEROPENEM 500 MG in SODIUM CHLORIDE 0.9% 100 ML IV SCH ×3 (09:40→21:20)
[2021-05-04] MEDS: ASCORBIC ACID 500 MG TABLET PO SCH ×2 (09:41→21:24)
[2021-05-04] MEDS: GABAPENTIN 300 MG CAPSULE PO SCH (09:41)
[2021-05-04] MEDS: methylPREDNISolone SOD SUC 40 MG/1 ML VIAL IV SCH ×2 (09:41→21:50)
[2021-05-04] MEDS: ZINC GLUCONATE 50 MG TABLET PO SCH (09:41)
[2021-05-04] MEDS: ASPIRIN CHEW 81 MG TABLET PO SCH (09:42)
[2021-05-04] MEDS: FENOFIBRATE 160 MG TABLET PO SCH (09:42)
[2021-05-04] MEDS: SIMVASTATIN 20 MG TABLET PO SCH (09:42)
[2021-05-04] MEDS: CHOLECALCIFEROL 1,000 UNIT TABLET PO SCH (09:42)
[2021-05-04] MEDS: CETIRIZINE 10 MG TABLET PO SCH (09:42)
[2021-05-04] MEDS: FAMOTIDINE 20 MG TABLET PO SCH ×2 (09:42→21:20)
[2021-05-04] MEDS: APIXABAN 5 MG TABLET PER TUBE SCH ×2 (09:42→21:20)
[2021-05-04] MEDS: MENTHOL/ZINC OXIDE OINT 71 GM JAR TOP SCH ×2 (09:42→21:20)
[2021-05-04] MEDS: amLODIPine 5 MG TABLET PO SCH (09:43)
[2021-05-04] MEDS: DOCUSATE SODIUM 100 MG/10 ML UDCUP PO SCH ×2 (09:43→21:20)
[2021-05-04] MEDS: METOPROLOL TARTRATE 25 MG TABLET PO SCH ×2 (09:43→21:22)
[2021-05-04] MEDS: BUDESONIDE/FORMOTEROL 160-4.5 INHALER 6 GM INH SCH ×2 (09:44→21:22)
[2021-05-04] MEDS: NOREPINEPHRINE 8 MG in SODIUM CHLORIDE 0.9% 242 ML IV PRN (11:05)
[2021-05-04] MEDS: VANCOMYCIN INJ 1,000 MG in SODIUM CHLORIDE 0.9% 250 ML IV SCH (15:25)
[2021-05-04] MEDS: INSULIN GLARGINE 100 UNIT/ML SUBCUT SCH (21:19)
[2021-05-05] MEDS: INSULIN REGULAR 100 UNIT/ML SUBCUT SCH ×7 (00:51→23:08)
[2021-05-05] MEDS: VANCOMYCIN INJ 1,000 MG in SODIUM CHLORIDE 0.9% 250 ML IV SCH ×2 (01:14→13:10)
[2021-05-05 03:53] LABS: ABG Base Excess 4.3 MMOL/L (-2.5-2.5); ABG HCO3 28.3 MMOL/L (20-26); ABG Oxygen Saturation 99.5 % (95-100); ABG PCO2 34.6 MM HG (35-48); ABG PH 7.506 (7.35-7.45); ABG TCO2 25.4 MMOL/L (23-27)
[2021-05-05 04:13] LABS: Basophils % 0.1 % (0.0-0.8); Hematocrit 25.5 VOL% (35.7-47.0); Hemoglobin 8.3 GM/DL (12.0-16.0); Immature Granulocytes % 0.6 %; Immature Granulocytes Absolute 0.06 #; Lymphocytes # 0.6 10*3/uL (1.4-4.0); Lymphocytes % 5.9 % (21.3-54.2); Mean Corpuscular HGB Conc 32.5 GM/DL (32-36); Mean Corpuscular Volume 83.1 FL (87-102); Mean Platelet Volume 12.6 FL (9.6-12.0); Monocytes % 4.4 % (1.7-12.7); Platelet Count 239 T/CUMM (130-400); Red Blood Count 3.07 MC/CUMM (3.8-5.5); Red Cell Distribution Width 15.6 % (9.3-17.3); White Blood Count 9.4 T/CUMM (4-12)
[2021-05-05] MEDS: ALBUTEROL INHALER 18 GM INH SCH ×4 (04:19→20:53)
[2021-05-05] MEDS: MEROPENEM 500 MG in SODIUM CHLORIDE 0.9% 100 ML IV SCH ×4 (04:19→20:50)
[2021-05-05 04:33] LABS: Calcium 8.7 MG/DL (8.5-10.1); Osmolality,Calculated 308.6 MOS/KG (273-304)
[2021-05-05] MEDS: levETIRAcetam LIQUID 100 MG/ML 30 ML/BOTTLE PO SCH ×3 (05:08→20:53)
[2021-05-05] MEDS: CHOLECALCIFEROL 1,000 UNIT TABLET PO SCH (09:38)
[2021-05-05] MEDS: SIMVASTATIN 20 MG TABLET PO SCH (09:38)
[2021-05-05] MEDS: methylPREDNISolone SOD SUC 40 MG/1 ML VIAL IV SCH ×2 (09:38→22:53)
[2021-05-05] MEDS: METOPROLOL TARTRATE 25 MG TABLET PO SCH ×2 (09:38→20:17)
[2021-05-05] MEDS: ASPIRIN CHEW 81 MG TABLET PO SCH (09:38)
[2021-05-05] MEDS: BUDESONIDE/FORMOTEROL 160-4.5 INHALER 6 GM INH SCH ×2 (09:38→20:52)
[2021-05-05] MEDS: GABAPENTIN 300 MG CAPSULE PO SCH (09:38)
[2021-05-05] MEDS: DOCUSATE SODIUM 100 MG/10 ML UDCUP PO SCH ×2 (09:38→20:50)
[2021-05-05] MEDS: ASCORBIC ACID 500 MG TABLET PO SCH ×2 (09:38→20:50)
[2021-05-05] MEDS: ZINC GLUCONATE 50 MG TABLET PO SCH (09:38)
[2021-05-05] MEDS: APIXABAN 5 MG TABLET PER TUBE SCH ×2 (09:38→20:50)
[2021-05-05] MEDS: amLODIPine 5 MG TABLET PO SCH (09:38)
[2021-05-05] MEDS: FENOFIBRATE 160 MG TABLET PO SCH (09:38)
[2021-05-05] MEDS: MENTHOL/ZINC OXIDE OINT 71 GM JAR TOP SCH ×2 (09:38→20:52)
[2021-05-05] MEDS: CETIRIZINE 10 MG TABLET PO SCH (09:38)
[2021-05-05] MEDS: FAMOTIDINE 20 MG TABLET PO SCH ×2 (09:38→20:50)
[2021-05-05] MEDS: MIDAZOLAM 100 MG in SODIUM CHLORIDE 0.9% 80 ML IV PRN (11:34)
[2021-05-05] MEDS: fentaNYL 25 MCG/HR PATCH TRANSDERM SCH (15:29)
[2021-05-05] MEDS: DEXTROSE 50% 25 GM/50 ML VIAL IV PRN (15:44)
[2021-05-05] MEDS: INSULIN GLARGINE 100 UNIT/ML SUBCUT SCH (20:16)
[2021-05-06] MEDS: NOREPINEPHRINE 8 MG in SODIUM CHLORIDE 0.9% 242 ML IV PRN (00:52)
[2021-05-06] MEDS: VANCOMYCIN INJ 1,000 MG in SODIUM CHLORIDE 0.9% 250 ML IV SCH ×2 (00:52→14:17)
[2021-05-06] MEDS: MIDAZOLAM 100 MG in SODIUM CHLORIDE 0.9% 80 ML IV PRN (00:53)
[2021-05-06] MEDS: ALBUTEROL INHALER 18 GM INH SCH ×4 (02:10→20:10)
[2021-05-06] MEDS: MEROPENEM 500 MG in SODIUM CHLORIDE 0.9% 100 ML IV SCH ×4 (02:10→20:29)
[2021-05-06] MEDS: INSULIN REGULAR 100 UNIT/ML SUBCUT SCH ×6 (03:29→23:57)
[2021-05-06 03:58] LABS: ABG Base Excess 3.6 MMOL/L (-2.5-2.5); ABG HCO3 27.6 MMOL/L (20-26); ABG Oxygen Saturation 97.9 % (95-100); ABG PCO2 39.2 MM HG (35-48); ABG PH 7.465 (7.35-7.45); ABG PO2 119.6 MM HG (80-95); ABG TCO2 28.8 MMOL/L (23-27)
[2021-05-06 04:04] LABS: Basophils % 0.1 % (0.0-0.8); Eosinophils % 0.3 % (0.00-10.9); Hematocrit 27.3 VOL% (35.7-47.0); Hemoglobin 8.7 GM/DL (12.0-16.0); Immature Granulocytes % 0.4 %; Immature Granulocytes Absolute 0.05 #; Lymphocytes # 0.7 10*3/uL (1.4-4.0); Lymphocytes % 6.3 % (21.3-54.2); Mean Corpuscular HGB Conc 31.9 GM/DL (32-36); Mean Corpuscular Volume 84.3 FL (87-102); Mean Platelet Volume 12.4 FL (9.6-12.0); Monocytes % 2.2 % (1.7-12.7); Neutrophils % 90.7 % (38.7-73.9); Platelet Count 235 T/CUMM (130-400); Red Blood Count 3.24 MC/CUMM (3.8-5.5); Red Cell Distribution Width 15.7 % (9.3-17.3); White Blood Count 11.8 T/CUMM (4-12)
[2021-05-06 04:21] LABS: Calcium 8.5 MG/DL (8.5-10.1); Osmolality,Calculated 303.8 MOS/KG (273-304); Potassium 4.7 MMOL/L (3.5-5.1)
[2021-05-06] MEDS: levETIRAcetam LIQUID 100 MG/ML 30 ML/BOTTLE PO SCH ×3 (04:21→20:09)
[2021-05-06 04:35] LABS: Hypochromasia 1+; Lymphocytes 5 % (20-55); Microcytosis 1+; Segmented Neutrophils 94 % (50-85); Total Cells Counted 100
[2021-05-06 04:36] LABS: Platelet Estimate Normal
[2021-05-06] MEDS: ASCORBIC ACID 500 MG TABLET PO SCH ×2 (08:55→20:29)
[2021-05-06] MEDS: GABAPENTIN 300 MG CAPSULE PO SCH (08:55)
[2021-05-06] MEDS: CETIRIZINE 10 MG TABLET PO SCH (08:55)
[2021-05-06] MEDS: amLODIPine 5 MG TABLET PO SCH (08:55)
[2021-05-06] MEDS: ASPIRIN CHEW 81 MG TABLET PO SCH (08:55)
[2021-05-06] MEDS: FENOFIBRATE 160 MG TABLET PO SCH (08:56)
[2021-05-06] MEDS: APIXABAN 5 MG TABLET PER TUBE SCH (08:56)
[2021-05-06] MEDS: FAMOTIDINE 20 MG TABLET PO SCH ×2 (08:56→20:09)
[2021-05-06] MEDS: ZINC GLUCONATE 50 MG TABLET PO SCH (08:56)
[2021-05-06] MEDS: DOCUSATE SODIUM 100 MG/10 ML UDCUP PO SCH ×2 (08:56→20:09)
[2021-05-06] MEDS: MENTHOL/ZINC OXIDE OINT 71 GM JAR TOP SCH ×2 (08:56→20:09)
[2021-05-06] MEDS: CHOLECALCIFEROL 1,000 UNIT TABLET PO SCH (08:56)
[2021-05-06] MEDS: BUDESONIDE/FORMOTEROL 160-4.5 INHALER 6 GM INH SCH ×2 (08:56→20:10)
[2021-05-06] MEDS: METOPROLOL TARTRATE 25 MG TABLET PO SCH ×2 (08:56→20:09)
[2021-05-06] MEDS: SIMVASTATIN 20 MG TABLET PO SCH (08:57)
[2021-05-06] MEDS: methylPREDNISolone SOD SUC 40 MG/1 ML VIAL IV SCH ×2 (09:45→21:51)
[2021-05-06] MEDS ORDERED: FUROSEMIDE 40 MG/4 ML VIAL IV ONE (14:01)
[2021-05-06] MEDS: HEPARIN DRIP 25,000 UNITS/500 ML PREMIX IV SCH (16:37)
[2021-05-06] MEDS: INSULIN GLARGINE 100 UNIT/ML SUBCUT SCH (20:29)
[2021-05-07] MEDS: MEROPENEM 500 MG in SODIUM CHLORIDE 0.9% 100 ML IV SCH ×4 (02:06→21:14)
[2021-05-07] MEDS: ALBUTEROL INHALER 18 GM INH SCH ×4 (03:29→21:14)
[2021-05-07] MEDS: levETIRAcetam LIQUID 100 MG/ML 30 ML/BOTTLE PO SCH ×3 (05:38→21:14)
[2021-05-07] MEDS: INSULIN REGULAR 100 UNIT/ML SUBCUT SCH ×6 (05:38→23:54)
[2021-05-07 05:39] LABS: ABG Base Excess 7.1 MMOL/L (-2.5-2.5); ABG HCO3 29.5 MMOL/L (20-26); ABG Oxygen Saturation 98.4 % (95-100); ABG PCO2 33.5 MM HG (35-48); ABG PH 7.562 (7.35-7.45); ABG PO2 141.3 MM HG (80-95); ABG TCO2 30.5 MMOL/L (23-27)
[2021-05-07 05:44] LABS: Eosinophils % 0.2 % (0.00-10.9); Hemoglobin 9.3 GM/DL (12.0-16.0); Immature Granulocytes % 0.6 %; Immature Granulocytes Absolute 0.04 #; Lymphocytes % 15.1 % (21.3-54.2); Mean Corpuscular HGB Conc 33.2 GM/DL (32-36); Mean Corpuscular Volume 80.9 FL (87-102); Mean Platelet Volume 12.7 FL (9.6-12.0); Monocytes % 6.8 % (1.7-12.7); Neutrophils % 77.3 % (38.7-73.9); Platelet Count 243 T/CUMM (130-400); Red Blood Count 3.46 MC/CUMM (3.8-5.5); Red Cell Distribution Width 15.4 % (9.3-17.3); White Blood Count 6.4 T/CUMM (4-12)
[2021-05-07 06:27] LABS: Osmolality,Calculated 296.3 MOS/KG (273-304); Potassium 4.1 MMOL/L (3.5-5.1)
[2021-05-07] MEDS ORDERED: methylPREDNISolone SOD SUC 125 MG/2 ML VIAL ONE (09:03)
[2021-05-07] MEDS ORDERED: diphenhydrAMINE 50 MG/1 ML VIAL ONE (09:03)
[2021-05-07] MEDS: ASPIRIN CHEW 81 MG TABLET PO SCH (10:08)
[2021-05-07] MEDS: MENTHOL/ZINC OXIDE OINT 71 GM JAR TOP SCH ×2 (10:08→21:14)
[2021-05-07] MEDS: amLODIPine 5 MG TABLET PO SCH (10:10)
[2021-05-07] MEDS: METOPROLOL TARTRATE 25 MG TABLET PO SCH ×2 (10:10→21:14)
[2021-05-07] MEDS: GABAPENTIN 300 MG CAPSULE PO SCH (10:10)
[2021-05-07] MEDS: DOCUSATE SODIUM 100 MG/10 ML UDCUP PO SCH ×2 (10:10→21:14)
[2021-05-07] MEDS: ASCORBIC ACID 500 MG TABLET PO SCH ×2 (10:10→21:15)
[2021-05-07] MEDS: BUDESONIDE/FORMOTEROL 160-4.5 INHALER 6 GM INH SCH ×2 (10:10→21:15)
[2021-05-07] MEDS: CHOLECALCIFEROL 1,000 UNIT TABLET PO SCH (10:10)
[2021-05-07] MEDS: SIMVASTATIN 20 MG TABLET PO SCH (10:10)
[2021-05-07] MEDS: ZINC GLUCONATE 50 MG TABLET PO SCH (10:10)
[2021-05-07] MEDS: FENOFIBRATE 160 MG TABLET PO SCH (10:10)
[2021-05-07] MEDS: FAMOTIDINE 20 MG TABLET PO SCH ×2 (10:10→21:14)
[2021-05-07] MEDS: CETIRIZINE 10 MG TABLET PO SCH (10:11)
[2021-05-07] MEDS: methylPREDNISolone SOD SUC 40 MG/1 ML VIAL IV SCH ×2 (10:11→22:13)
[2021-05-07] MEDS: VANCOMYCIN INJ 1,000 MG in SODIUM CHLORIDE 0.9% 250 ML IV SCH (12:45)
[2021-05-07] MEDS: HEPARIN DRIP 25,000 UNITS/500 ML PREMIX IV SCH (12:45)
[2021-05-07] MEDS: INSULIN GLARGINE 100 UNIT/ML SUBCUT SCH (21:14)
[2021-05-08] MEDS: MEROPENEM 500 MG in SODIUM CHLORIDE 0.9% 100 ML IV SCH ×4 (02:48→21:23)
[2021-05-08 04:17] LABS: ABG Base Excess 5.2 MMOL/L (-2.5-2.5); ABG HCO3 26.9 MMOL/L (20-26); ABG Oxygen Saturation 98.4 % (95-100); ABG PCO2 28.8 MM HG (35-48); ABG PH 7.588 (7.35-7.45); ABG TCO2 27.8 MMOL/L (23-27)
[2021-05-08 04:23] LABS: Hematocrit 27.3 VOL% (35.7-47.0); Hemoglobin 9.1 GM/DL (12.0-16.0); Immature Granulocytes % 0.6 %; Immature Granulocytes Absolute 0.04 #; Lymphocytes # 0.6 10*3/uL (1.4-4.0); Lymphocytes % 9.2 % (21.3-54.2); Mean Corpuscular HGB Conc 33.3 GM/DL (32-36); Mean Corpuscular Volume 80.1 FL (87-102); Monocytes % 7.1 % (1.7-12.7); Neutrophils % 83.1 % (38.7-73.9); Platelet Count 238 T/CUMM (130-400); Red Blood Count 3.41 MC/CUMM (3.8-5.5); Red Cell Distribution Width 15.3 % (9.3-17.3); White Blood Count 6.9 T/CUMM (4-12)
[2021-05-08 04:36] LABS: PT Patient Result 11.1 SECS (10.5-12.0); Partial Thromboplastin Time 23.1 SECS (23.9-33.8)
[2021-05-08] MEDS: ALBUTEROL INHALER 18 GM INH SCH ×4 (04:36→21:25)
[2021-05-08] MEDS: levETIRAcetam LIQUID 100 MG/ML 30 ML/BOTTLE PO SCH ×2 (04:37→16:14)
[2021-05-08 04:43] LABS: Osmolality,Calculated 285.7 MOS/KG (273-304); Potassium 3.9 MMOL/L (3.5-5.1)
[2021-05-08] MEDS: INSULIN REGULAR 100 UNIT/ML SUBCUT SCH ×6 (05:01→23:44)
[2021-05-08] MEDS: DEXTROSE 50% 25 GM/50 ML VIAL IV PRN (05:39)
[2021-05-08] MEDS ORDERED: ROCURONIUM 50 MG/5 ML VIAL IV ONE ×2 (09:50→12:17)
[2021-05-08] MEDS ORDERED: MIDAZOLAM 10 MG/2 ML VIAL ONE (09:52)
[2021-05-08] MEDS ORDERED: fentaNYL INJ 1,250 MCG in SODIUM CHLORIDE 0.9% 225 ML IV PRN (10:03)
[2021-05-08] MEDS ORDERED: LIDOCAINE 1%/EPI INJ 20 ML VIAL ONE (10:23)
[2021-05-08] MEDS: LACTATED RINGERS 1,000 ML IV SCH (12:16)
[2021-05-08] MEDS: METOPROLOL TARTRATE 25 MG TABLET PO SCH ×2 (12:46→21:25)
[2021-05-08] MEDS: BUDESONIDE/FORMOTEROL 160-4.5 INHALER 6 GM INH SCH ×2 (12:47→21:26)
[2021-05-08] MEDS: amLODIPine 5 MG TABLET PO SCH (12:47)
[2021-05-08] MEDS: ASPIRIN CHEW 81 MG TABLET PO SCH (15:48)
[2021-05-08] MEDS: MENTHOL/ZINC OXIDE OINT 71 GM JAR TOP SCH ×2 (15:48→21:25)
[2021-05-08] MEDS: DOCUSATE SODIUM 100 MG/10 ML UDCUP PO SCH ×2 (15:49→21:25)
[2021-05-08] MEDS: CHOLECALCIFEROL 1,000 UNIT TABLET PO SCH (15:49)
[2021-05-08] MEDS: FAMOTIDINE 20 MG TABLET PO SCH ×2 (15:49→21:25)
[2021-05-08] MEDS: ASCORBIC ACID 500 MG TABLET PO SCH ×2 (15:49→21:26)
[2021-05-08] MEDS: FENOFIBRATE 160 MG TABLET PO SCH (15:49)
[2021-05-08] MEDS: GABAPENTIN 300 MG CAPSULE PO SCH (15:49)
[2021-05-08] MEDS: CETIRIZINE 10 MG TABLET PO SCH (15:50)
[2021-05-08] MEDS: ZINC GLUCONATE 50 MG TABLET PO SCH (15:50)
[2021-05-08] MEDS: methylPREDNISolone SOD SUC 40 MG/1 ML VIAL IV SCH ×2 (15:50→21:31)
[2021-05-08] MEDS: SIMVASTATIN 20 MG TABLET PO SCH (15:50)
[2021-05-08] MEDS: fentaNYL 25 MCG/HR PATCH TRANSDERM SCH (16:30)
[2021-05-08] MEDS: INSULIN GLARGINE 100 UNIT/ML SUBCUT SCH (21:25)
[2021-05-09] MEDS: VANCOMYCIN INJ 1,000 MG in SODIUM CHLORIDE 0.9% 250 ML IV SCH (01:08)
[2021-05-09] MEDS: MEROPENEM 500 MG in SODIUM CHLORIDE 0.9% 100 ML IV SCH ×4 (03:57→20:35)
[2021-05-09] MEDS: ALBUTEROL INHALER 18 GM INH SCH ×4 (03:57→20:41)
[2021-05-09 04:15] LABS: ABG Base Excess 1.6 MMOL/L (-2.5-2.5); ABG HCO3 25.9 MMOL/L (20-26); ABG Oxygen Saturation 99.3 % (95-100); ABG PCO2 28.8 MM HG (35-48); ABG PH 7.527 (7.35-7.45); ABG TCO2 22.2 MMOL/L (23-27)
[2021-05-09 04:17] LABS: Eosinophils % 0.2 % (0.00-10.9); Hematocrit 24.9 VOL% (35.7-47.0); Hemoglobin 8.2 GM/DL (12.0-16.0); Immature Granulocytes % 0.6 %; Immature Granulocytes Absolute 0.05 #; Lymphocytes # 0.9 10*3/uL (1.4-4.0); Lymphocytes % 10.5 % (21.3-54.2); Mean Corpuscular HGB Conc 32.9 GM/DL (32-36); Mean Corpuscular Volume 82.2 FL (87-102); Mean Platelet Volume 12.4 FL (9.6-12.0); Monocytes % 5.1 % (1.7-12.7); Neutrophils % 83.6 % (38.7-73.9); Platelet Count 216 T/CUMM (130-400); Red Blood Count 3.03 MC/CUMM (3.8-5.5); Red Cell Distribution Width 15.7 % (9.3-17.3); White Blood Count 8.2 T/CUMM (4-12)
[2021-05-09] MEDS: INSULIN REGULAR 100 UNIT/ML SUBCUT SCH ×5 (04:31→20:30)
[2021-05-09 04:56] LABS: Albumin 2.2 G/DL (3.4-5.0); Bilirubin,Total 0.6 MG/DL (0.20-1.00); Calcium 8.3 MG/DL (8.5-10.1); Ferritin 590.4 ng/mL (8-252); Osmolality,Calculated 294.1 MOS/KG (273-304); Potassium 3.6 MMOL/L (3.5-5.1); Total Protein 5.6 G/DL (6.4-8.2)
[2021-05-09] MEDS: LACTATED RINGERS 1,000 ML IV SCH (08:53)
[2021-05-09] MEDS: MENTHOL/ZINC OXIDE OINT 71 GM JAR TOP SCH ×2 (08:54→20:41)
[2021-05-09] MEDS: ASPIRIN CHEW 81 MG TABLET PO SCH (08:54)
[2021-05-09] MEDS: cloNIDine 0.3 MG/24 HR PATCH TRANSDERM SCH (08:54)
[2021-05-09] MEDS: GABAPENTIN 300 MG CAPSULE PO SCH (08:55)
[2021-05-09] MEDS: BUDESONIDE/FORMOTEROL 160-4.5 INHALER 6 GM INH SCH ×2 (08:55→20:40)
[2021-05-09] MEDS: DOCUSATE SODIUM 100 MG/10 ML UDCUP PO SCH ×2 (08:55→20:35)
[2021-05-09] MEDS: FAMOTIDINE 20 MG TABLET PO SCH ×2 (08:55→20:35)
[2021-05-09] MEDS: METOPROLOL TARTRATE 25 MG TABLET PO SCH ×2 (08:55→20:32)
[2021-05-09] MEDS: amLODIPine 5 MG TABLET PO SCH (08:55)
[2021-05-09] MEDS: FENOFIBRATE 160 MG TABLET PO SCH (08:56)
[2021-05-09] MEDS: ASCORBIC ACID 500 MG TABLET PO SCH ×2 (08:56→20:35)
[2021-05-09] MEDS: ZINC GLUCONATE 50 MG TABLET PO SCH (08:56)
[2021-05-09] MEDS: SIMVASTATIN 20 MG TABLET PO SCH (08:56)
[2021-05-09] MEDS: CHOLECALCIFEROL 1,000 UNIT TABLET PO SCH (08:56)
[2021-05-09] MEDS: CETIRIZINE 10 MG TABLET PO SCH (08:56)
[2021-05-09] MEDS: methylPREDNISolone SOD SUC 40 MG/1 ML VIAL IV SCH ×2 (10:41→22:09)
[2021-05-09] MEDS: MORPHINE 2 MG/1 ML SYRINGE IV PRN (11:32)
[2021-05-09] MEDS: LORazepam 2 MG/1 ML VIAL IV PRN (11:48)
[2021-05-09] MEDS: LEVOFLOXACIN INJ 750 MG/150 ML PREMIX IV SCH (16:53)
[2021-05-09] MEDS ORDERED: cloNIDine 0.3 MG/24 HR PATCH TRANSDERM SCH (17:21)
[2021-05-09] MEDS: INSULIN GLARGINE 100 UNIT/ML SUBCUT SCH (20:32)
[2021-05-10] MEDS: INSULIN REGULAR 100 UNIT/ML SUBCUT SCH ×6 (00:35→20:35)
[2021-05-10] MEDS: METOPROLOL TARTRATE 25 MG TABLET PO SCH ×3 (02:14→21:38)
[2021-05-10] MEDS: MEROPENEM 500 MG in SODIUM CHLORIDE 0.9% 100 ML IV SCH ×4 (02:19→20:35)
[2021-05-10] MEDS: METOPROLOL TARTRATE 5 MG/5 ML VIAL IV PRN (02:43)
[2021-05-10] MEDS: ALBUTEROL INHALER 18 GM INH SCH ×4 (03:58→21:07)
[2021-05-10 05:06] LABS: ABG Base Excess -1.4 MMOL/L (-2.5-2.5); ABG HCO3 23.3 MMOL/L (20-26); ABG Oxygen Saturation 99.7 % (95-100); ABG PCO2 27.1 MM HG (35-48); ABG TCO2 19.6 MMOL/L (23-27)
[2021-05-10 05:23] LABS: Hemoglobin 7.9 GM/DL (12.0-16.0); Immature Granulocytes % 0.6 %; Immature Granulocytes Absolute 0.05 #; Lymphocytes # 0.5 10*3/uL (1.4-4.0); Lymphocytes % 6.4 % (21.3-54.2); Mean Corpuscular HGB Conc 31.6 GM/DL (32-36); Mean Corpuscular Volume 84.2 FL (87-102); Mean Platelet Volume 12.5 FL (9.6-12.0); Monocytes % 4.9 % (1.7-12.7); Neutrophils % 88.1 % (38.7-73.9); Platelet Count 207 T/CUMM (130-400); Red Blood Count 2.97 MC/CUMM (3.8-5.5); Red Cell Distribution Width 15.4 % (9.3-17.3); White Blood Count 8.4 T/CUMM (4-12)
[2021-05-10 05:36] LABS: Albumin 2.2 G/DL (3.4-5.0); Bilirubin,Total 0.8 MG/DL (0.20-1.00); Calcium 8.3 MG/DL (8.5-10.1); Osmolality,Calculated 291.4 MOS/KG (273-304); Potassium 3.8 MMOL/L (3.5-5.1); Total Protein 5.7 G/DL (6.4-8.2)
[2021-05-10 05:37] LABS: Ferritin 615.3 ng/mL (8-252)
[2021-05-10] MEDS: ZINC GLUCONATE 50 MG TABLET PO SCH (09:02)
[2021-05-10] MEDS: FAMOTIDINE 20 MG TABLET PO SCH ×2 (09:02→21:07)
[2021-05-10] MEDS: CHOLECALCIFEROL 1,000 UNIT TABLET PO SCH (09:03)
[2021-05-10] MEDS: DOCUSATE SODIUM 100 MG/10 ML UDCUP PO SCH ×2 (09:04→21:06)
[2021-05-10] MEDS: ASCORBIC ACID 500 MG TABLET PO SCH ×2 (09:04→21:07)
[2021-05-10] MEDS: SIMVASTATIN 20 MG TABLET PO SCH (09:04)
[2021-05-10] MEDS: FENOFIBRATE 160 MG TABLET PO SCH (09:04)
[2021-05-10] MEDS: GABAPENTIN 300 MG CAPSULE PO SCH (09:04)
[2021-05-10] MEDS: ASPIRIN CHEW 81 MG TABLET PO SCH (09:04)
[2021-05-10] MEDS: amLODIPine 5 MG TABLET PO SCH (09:05)
[2021-05-10] MEDS: CETIRIZINE 10 MG TABLET PO SCH (09:05)
[2021-05-10] MEDS: BUDESONIDE/FORMOTEROL 160-4.5 INHALER 6 GM INH SCH ×2 (09:05→21:07)
[2021-05-10] MEDS: MENTHOL/ZINC OXIDE OINT 71 GM JAR TOP SCH ×2 (09:06→21:06)
[2021-05-10] MEDS: MORPHINE 2 MG/1 ML SYRINGE IV PRN (09:29)
[2021-05-10] MEDS: LACTATED RINGERS 1,000 ML IV SCH (10:15)
[2021-05-10] MEDS: methylPREDNISolone SOD SUC 40 MG/1 ML VIAL IV SCH ×2 (11:27→23:17)
[2021-05-10] MEDS: LEVOFLOXACIN INJ 750 MG/150 ML PREMIX IV SCH (16:49)
[2021-05-10] MEDS ORDERED: PHENYLEPHRINE DRIP 40 MG/250 ML PREMIX IV PRN (21:03)
[2021-05-10] MEDS: INSULIN GLARGINE 100 UNIT/ML SUBCUT SCH (21:06)
[2021-05-10] MEDS ORDERED: SODIUM CHLORIDE 0.9% 500 ML IV ONE (21:33)
[2021-05-11] MEDS: INSULIN REGULAR 100 UNIT/ML SUBCUT SCH ×6 (00:06→19:59)
[2021-05-11] MEDS: MORPHINE 2 MG/1 ML SYRINGE IV PRN ×2 (01:33→08:53)
[2021-05-11] MEDS: MEROPENEM 500 MG in SODIUM CHLORIDE 0.9% 100 ML IV SCH ×4 (03:20→20:01)
[2021-05-11] MEDS: ALBUTEROL INHALER 18 GM INH SCH ×4 (03:34→20:11)
[2021-05-11 04:45] LABS: Eosinophils % 0.2 % (0.00-10.9); Hematocrit 21.7 VOL% (35.7-47.0); Hemoglobin 7.2 GM/DL (12.0-16.0); Immature Granulocytes % 0.5 %; Immature Granulocytes Absolute 0.03 #; Lymphocytes # 0.4 10*3/uL (1.4-4.0); Lymphocytes % 6.7 % (21.3-54.2); Mean Corpuscular HGB Conc 33.2 GM/DL (32-36); Mean Corpuscular Volume 81.9 FL (87-102); Mean Platelet Volume 11.6 FL (9.6-12.0); Monocytes % 5.2 % (1.7-12.7); Neutrophils % 87.4 % (38.7-73.9); Platelet Count 198 T/CUMM (130-400); Red Blood Count 2.65 MC/CUMM (3.8-5.5); Red Cell Distribution Width 15.7 % (9.3-17.3); White Blood Count 5.8 T/CUMM (4-12)
[2021-05-11 04:45] LABS: ABG Base Excess 2.2 MMOL/L (-2.5-2.5); ABG HCO3 25.1 MMOL/L (20-26); ABG Oxygen Saturation 98.9 % (95-100); ABG PCO2 31.7 MM HG (35-48); ABG PH 7.516 (7.35-7.45); ABG PO2 186.5 MM HG (80-95)
[2021-05-11 05:17] LABS: Calcium 8.4 MG/DL (8.5-10.1); Osmolality,Calculated 291.4 MOS/KG (273-304)
[2021-05-11] MEDS ORDERED: SODIUM CHLORIDE 0.9% 1,000 ML IV PRN (07:47)
[2021-05-11] MEDS: LACTATED RINGERS 1,000 ML IV SCH (08:51)
[2021-05-11] MEDS: fentaNYL 25 MCG/HR PATCH TRANSDERM SCH (08:52)
[2021-05-11] MEDS: ASPIRIN CHEW 81 MG TABLET PO SCH (08:52)
[2021-05-11] MEDS: DOCUSATE SODIUM 100 MG/10 ML UDCUP PO SCH ×2 (08:52→20:03)
[2021-05-11] MEDS: METOPROLOL TARTRATE 25 MG TABLET PO SCH ×2 (08:52→20:03)
[2021-05-11] MEDS: FAMOTIDINE 20 MG TABLET PO SCH ×2 (08:52→20:03)
[2021-05-11] MEDS: GABAPENTIN 300 MG CAPSULE PO SCH (08:52)
[2021-05-11] MEDS: amLODIPine 5 MG TABLET PO SCH (08:52)
[2021-05-11] MEDS: MENTHOL/ZINC OXIDE OINT 71 GM JAR TOP SCH ×2 (08:52→20:10)
[2021-05-11] MEDS: FENOFIBRATE 160 MG TABLET PO SCH (08:53)
[2021-05-11] MEDS: BUDESONIDE/FORMOTEROL 160-4.5 INHALER 6 GM INH SCH ×2 (08:53→20:10)
[2021-05-11] MEDS: ZINC GLUCONATE 50 MG TABLET PO SCH (08:53)
[2021-05-11] MEDS: SIMVASTATIN 20 MG TABLET PO SCH (08:53)
[2021-05-11] MEDS: CHOLECALCIFEROL 1,000 UNIT TABLET PO SCH (08:53)
[2021-05-11] MEDS: ASCORBIC ACID 500 MG TABLET PO SCH ×2 (08:53→20:03)
[2021-05-11] MEDS: CETIRIZINE 10 MG TABLET PO SCH (08:53)
[2021-05-11] MEDS: methylPREDNISolone SOD SUC 40 MG/1 ML VIAL IV SCH ×2 (10:51→21:55)
[2021-05-11 13:58] LABS: Hematocrit 31.2 VOL% (35.7-47.0)
[2021-05-11 14:01] LABS: Hemoglobin 9.9 GM/DL (12.0-16.0)
[2021-05-11] MEDS: LEVOFLOXACIN INJ 750 MG/150 ML PREMIX IV SCH (17:09)
[2021-05-11] MEDS: INSULIN GLARGINE 100 UNIT/ML SUBCUT SCH (20:00)
[2021-05-11] MEDS: APIXABAN 5 MG TABLET PER TUBE SCH (21:10)
[2021-05-12] MEDS: INSULIN REGULAR 100 UNIT/ML SUBCUT SCH ×7 (00:12→23:54)
[2021-05-12] MEDS: MORPHINE 2 MG/1 ML SYRINGE IV PRN ×2 (01:29→08:34)
[2021-05-12] MEDS: MEROPENEM 500 MG in SODIUM CHLORIDE 0.9% 100 ML IV SCH ×4 (02:37→21:08)
[2021-05-12] MEDS: ALBUTEROL INHALER 18 GM INH SCH ×4 (02:37→21:09)
[2021-05-12 04:03] LABS: ABG Base Excess 5.3 MMOL/L (-2.5-2.5); ABG HCO3 29.2 MMOL/L (20-26); ABG Oxygen Saturation 99.7 % (95-100); ABG PCO2 28.9 MM HG (35-48); ABG PH 7.576 (7.35-7.45); ABG TCO2 24.1 MMOL/L (23-27)
[2021-05-12 04:16] LABS: Basophils % 0.1 % (0.0-0.8); Eosinophils % 0.1 % (0.00-10.9); Hematocrit 29.8 VOL% (35.7-47.0); Hemoglobin 9.7 GM/DL (12.0-16.0); Immature Granulocytes % 0.5 %; Immature Granulocytes Absolute 0.04 #; Lymphocytes # 0.7 10*3/uL (1.4-4.0); Lymphocytes % 8.5 % (21.3-54.2); Mean Corpuscular HGB Conc 32.6 GM/DL (32-36); Mean Corpuscular Volume 83.2 FL (87-102); Neutrophils % 84.8 % (38.7-73.9); Platelet Count 262 T/CUMM (130-400); Red Blood Count 3.58 MC/CUMM (3.8-5.5); Red Cell Distribution Width 15.5 % (9.3-17.3); White Blood Count 8.2 T/CUMM (4-12)
[2021-05-12 04:41] LABS: Calcium 8.9 MG/DL (8.5-10.1); Osmolality,Calculated 284.4 MOS/KG (273-304); Potassium 4.1 MMOL/L (3.5-5.1)
[2021-05-12] MEDS: APIXABAN 5 MG TABLET PER TUBE SCH ×2 (08:33→21:09)
[2021-05-12] MEDS: amLODIPine 5 MG TABLET PO SCH (08:33)
[2021-05-12] MEDS: ASCORBIC ACID 500 MG TABLET PO SCH ×2 (08:33→21:09)
[2021-05-12] MEDS: ZINC GLUCONATE 50 MG TABLET PO SCH (08:33)
[2021-05-12] MEDS: METOPROLOL TARTRATE 25 MG TABLET PO SCH ×2 (08:33→21:09)
[2021-05-12] MEDS: CETIRIZINE 10 MG TABLET PO SCH (08:33)
[2021-05-12] MEDS: DOCUSATE SODIUM 100 MG/10 ML UDCUP PO SCH ×2 (08:33→21:09)
[2021-05-12] MEDS: GABAPENTIN 300 MG CAPSULE PO SCH (08:33)
[2021-05-12] MEDS: FAMOTIDINE 20 MG TABLET PO SCH ×2 (08:34→21:09)
[2021-05-12] MEDS: FENOFIBRATE 160 MG TABLET PO SCH (08:34)
[2021-05-12] MEDS: SIMVASTATIN 20 MG TABLET PO SCH (08:34)
[2021-05-12] MEDS: ASPIRIN CHEW 81 MG TABLET PO SCH (08:34)
[2021-05-12] MEDS: CHOLECALCIFEROL 1,000 UNIT TABLET PO SCH (08:34)
[2021-05-12] MEDS: MENTHOL/ZINC OXIDE OINT 71 GM JAR TOP SCH ×2 (08:35→21:08)
[2021-05-12] MEDS: BUDESONIDE/FORMOTEROL 160-4.5 INHALER 6 GM INH SCH ×2 (08:37→21:09)
[2021-05-12] MEDS ORDERED: POTASSIUM PHOSPHATE 30 MMOL in SODIUM CHLORIDE 0.9% 250 ML IV ONE (09:00)
[2021-05-12] MEDS: LACTATED RINGERS 1,000 ML IV SCH (09:07)
[2021-05-12] MEDS: methylPREDNISolone SOD SUC 40 MG/1 ML VIAL IV SCH ×2 (10:02→21:40)
[2021-05-12] MEDS: ALPRAZolam 0.25 MG TABLET PO SCH ×2 (15:12→21:08)
[2021-05-12] MEDS: LEVOFLOXACIN INJ 750 MG/150 ML PREMIX IV SCH (17:05)
[2021-05-12] MEDS: INSULIN GLARGINE 100 UNIT/ML SUBCUT SCH (21:09)
[2021-05-13] MEDS: MEROPENEM 500 MG in SODIUM CHLORIDE 0.9% 100 ML IV SCH ×2 (03:27→09:22)
[2021-05-13] MEDS: ALBUTEROL INHALER 18 GM INH SCH ×4 (03:28→20:23)
[2021-05-13] MEDS: INSULIN REGULAR 100 UNIT/ML SUBCUT SCH ×5 (03:35→20:22)
[2021-05-13 04:01] LABS: Basophils % 0.1 % (0.0-0.8); Eosinophils % 0.2 % (0.00-10.9); Hematocrit 31.9 VOL% (35.7-47.0); Hemoglobin 10.1 GM/DL (12.0-16.0); Immature Granulocytes % 0.8 %; Immature Granulocytes Absolute 0.07 #; Lymphocytes # 0.8 10*3/uL (1.4-4.0); Lymphocytes % 8.1 % (21.3-54.2); Mean Corpuscular HGB Conc 31.7 GM/DL (32-36); Mean Corpuscular Volume 85.5 FL (87-102); Mean Platelet Volume 11.9 FL (9.6-12.0); Monocytes % 5.2 % (1.7-12.7); Neutrophils % 85.6 % (38.7-73.9); Platelet Count 285 T/CUMM (130-400); Red Blood Count 3.73 MC/CUMM (3.8-5.5); Red Cell Distribution Width 15.9 % (9.3-17.3); White Blood Count 9.3 T/CUMM (4-12)
[2021-05-13 04:24] LABS: Allen Test Positive
[2021-05-13 04:31] LABS: Osmolality,Calculated 283.8 MOS/KG (273-304); Potassium 4.7 MMOL/L (3.5-5.1)
[2021-05-13 04:34] LABS: ABG Base Excess 3.1 MMOL/L (-2.5-2.5); ABG HCO3 27.1 MMOL/L (20-26); ABG Oxygen Saturation 95.2 % (95-100); ABG PCO2 35.1 MM HG (35-48); ABG PH 7.484 (7.35-7.45); ABG PO2 69.9 MM HG (80-95)
[2021-05-13] MEDS: ASPIRIN CHEW 81 MG TABLET PO SCH (08:21)
[2021-05-13] MEDS: amLODIPine 5 MG TABLET PO SCH (08:21)
[2021-05-13] MEDS: APIXABAN 5 MG TABLET PER TUBE SCH ×2 (08:21→20:23)
[2021-05-13] MEDS: METOPROLOL TARTRATE 25 MG TABLET PO SCH ×2 (08:21→20:23)
[2021-05-13] MEDS: GABAPENTIN 300 MG CAPSULE PO SCH (08:21)
[2021-05-13] MEDS: CETIRIZINE 10 MG TABLET PO SCH (08:21)
[2021-05-13] MEDS: FAMOTIDINE 20 MG TABLET PO SCH ×2 (08:21→20:22)
[2021-05-13] MEDS: CHOLECALCIFEROL 1,000 UNIT TABLET PO SCH (08:21)
[2021-05-13] MEDS: ASCORBIC ACID 500 MG TABLET PO SCH ×2 (08:22→20:23)
[2021-05-13] MEDS: FENOFIBRATE 160 MG TABLET PO SCH (08:22)
[2021-05-13] MEDS: ALPRAZolam 0.25 MG TABLET PO SCH ×3 (08:22→20:22)
[2021-05-13] MEDS: ZINC GLUCONATE 50 MG TABLET PO SCH (08:22)
[2021-05-13] MEDS: SIMVASTATIN 20 MG TABLET PO SCH (08:22)
[2021-05-13] MEDS: DOCUSATE SODIUM 100 MG/10 ML UDCUP PO SCH ×2 (08:22→20:23)
[2021-05-13] MEDS: BUDESONIDE/FORMOTEROL 160-4.5 INHALER 6 GM INH SCH ×2 (08:23→20:23)
[2021-05-13] MEDS: MENTHOL/ZINC OXIDE OINT 71 GM JAR TOP SCH ×2 (08:24→20:23)
[2021-05-13] MEDS: methylPREDNISolone SOD SUC 40 MG/1 ML VIAL IV SCH ×2 (09:30→22:54)
[2021-05-13] MEDS: LEVOFLOXACIN INJ 750 MG/150 ML PREMIX IV SCH (15:13)
[2021-05-13] MEDS: INSULIN GLARGINE 100 UNIT/ML SUBCUT SCH (20:22)
[2021-05-14] MEDS: INSULIN REGULAR 100 UNIT/ML SUBCUT SCH ×7 (00:14→23:54)
[2021-05-14] MEDS: MORPHINE 2 MG/1 ML SYRINGE IV PRN ×2 (01:04→18:08)
[2021-05-14] MEDS ORDERED: MICAFUNGIN 100 MG in SODIUM CHLORIDE 0.9% 100 ML IV SCH (02:00)
[2021-05-14] MEDS: ALBUTEROL/IPRATROPIUM 3 ML NEB RESP TX SCH ×5 (03:00→21:53)
[2021-05-14 03:34] LABS: Eosinophils % 0.1 % (0.00-10.9); Hematocrit 32.2 VOL% (35.7-47.0); Hemoglobin 10.3 GM/DL (12.0-16.0); Immature Granulocytes % 0.5 %; Immature Granulocytes Absolute 0.04 #; Lymphocytes # 0.6 10*3/uL (1.4-4.0); Lymphocytes % 8.3 % (21.3-54.2); Mean Corpuscular Volume 84.7 FL (87-102); Mean Platelet Volume 12.2 FL (9.6-12.0); Monocytes % 5.8 % (1.7-12.7); Neutrophils % 85.3 % (38.7-73.9); Platelet Count 289 T/CUMM (130-400); Red Cell Distribution Width 15.6 % (9.3-17.3); White Blood Count 7.6 T/CUMM (4-12)
[2021-05-14 03:55] LABS: Calcium 9.2 MG/DL (8.5-10.1); Osmolality,Calculated 284.7 MOS/KG (273-304); Potassium 4.6 MMOL/L (3.5-5.1)
[2021-05-14 04:31] LABS: ABG Base Excess 5.1 MMOL/L (-2.5-2.5); ABG Oxygen Saturation 96.4 % (95-100); ABG PCO2 36.5 MM HG (35-48); ABG PH 7.499 (7.35-7.45); ABG PO2 74.8 MM HG (80-95); ABG TCO2 25.5 MMOL/L (23-27)
[2021-05-14] MEDS: MENTHOL/ZINC OXIDE OINT 71 GM JAR TOP SCH ×2 (08:21→21:07)
[2021-05-14] MEDS: ASPIRIN CHEW 81 MG TABLET PO SCH (08:21)
[2021-05-14] MEDS: FAMOTIDINE 20 MG TABLET PO SCH ×2 (08:22→21:06)
[2021-05-14] MEDS: APIXABAN 5 MG TABLET PER TUBE SCH ×2 (08:22→21:07)
[2021-05-14] MEDS: FENOFIBRATE 160 MG TABLET PO SCH (08:22)
[2021-05-14] MEDS: DOCUSATE SODIUM 100 MG/10 ML UDCUP PO SCH ×2 (08:22→21:06)
[2021-05-14] MEDS: METOPROLOL TARTRATE 25 MG TABLET PO SCH ×2 (08:22→21:08)
[2021-05-14] MEDS: BUDESONIDE/FORMOTEROL 160-4.5 INHALER 6 GM INH SCH ×2 (08:22→21:08)
[2021-05-14] MEDS: ASCORBIC ACID 500 MG TABLET PO SCH ×2 (08:23→21:07)
[2021-05-14] MEDS: SIMVASTATIN 20 MG TABLET PO SCH (08:23)
[2021-05-14] MEDS: ZINC GLUCONATE 50 MG TABLET PO SCH (08:23)
[2021-05-14] MEDS: amLODIPine 5 MG TABLET PO SCH (08:23)
[2021-05-14] MEDS: ALPRAZolam 0.25 MG TABLET PO SCH ×3 (08:23→21:07)
[2021-05-14] MEDS: CETIRIZINE 10 MG TABLET PO SCH (08:23)
[2021-05-14] MEDS: CHOLECALCIFEROL 1,000 UNIT TABLET PO SCH (08:23)
[2021-05-14] MEDS: GABAPENTIN 300 MG CAPSULE PO SCH (09:27)
[2021-05-14] MEDS: methylPREDNISolone SOD SUC 40 MG/1 ML VIAL IV SCH ×2 (09:31→22:36)
[2021-05-14] MEDS: FLUCONAZOLE 40 MG/ML 35 ML/BOTTLE PER TUBE SCH (11:11)
[2021-05-14] MEDS: LEVOFLOXACIN INJ 750 MG/150 ML PREMIX IV SCH (16:19)
[2021-05-14] MEDS ORDERED: LORazepam 2 MG/1 ML VIAL ONE (20:53)
[2021-05-14] MEDS: LORazepam 2 MG/1 ML VIAL IV PRN (21:05)
[2021-05-14] MEDS: INSULIN GLARGINE 100 UNIT/ML SUBCUT SCH (21:06)
[2021-05-14] MEDS ORDERED: SODIUM CHLORIDE 0.9% 500 ML IV ONE (22:08)
[2021-05-15] MEDS: INSULIN REGULAR 100 UNIT/ML SUBCUT SCH ×5 (05:03→21:05)
[2021-05-15] MEDS ORDERED: LORazepam 2 MG/1 ML VIAL ONE (06:04)
[2021-05-15] MEDS: LORazepam 2 MG/1 ML VIAL IV PRN (06:09)
[2021-05-15] MEDS: ALBUTEROL/IPRATROPIUM 3 ML NEB RESP TX SCH ×2 (07:10→13:21)
[2021-05-15] MEDS ORDERED: SODIUM CHLORIDE 0.9% 500 ML IV ONE (08:23)
[2021-05-15] MEDS: ASCORBIC ACID 500 MG TABLET PO SCH ×2 (08:37→21:04)
[2021-05-15] MEDS: CHOLECALCIFEROL 1,000 UNIT TABLET PO SCH (08:38)
[2021-05-15] MEDS: ZINC GLUCONATE 50 MG TABLET PO SCH (08:38)
[2021-05-15] MEDS: ALPRAZolam 0.25 MG TABLET PO SCH (08:38)
[2021-05-15] MEDS: FENOFIBRATE 160 MG TABLET PO SCH (08:38)
[2021-05-15] MEDS: SIMVASTATIN 20 MG TABLET PO SCH (08:39)
[2021-05-15] MEDS: FAMOTIDINE 20 MG TABLET PO SCH ×2 (08:39→21:04)
[2021-05-15] MEDS: MENTHOL/ZINC OXIDE OINT 71 GM JAR TOP SCH ×2 (08:39→21:04)
[2021-05-15] MEDS: ASPIRIN CHEW 81 MG TABLET PO SCH (08:39)
[2021-05-15] MEDS: GABAPENTIN 300 MG CAPSULE PO SCH (08:39)
[2021-05-15] MEDS: APIXABAN 5 MG TABLET PER TUBE SCH ×2 (08:39→21:04)
[2021-05-15] MEDS: FLUCONAZOLE 40 MG/ML 35 ML/BOTTLE PER TUBE SCH (08:40)
[2021-05-15] MEDS: CETIRIZINE 10 MG TABLET PO SCH (08:40)
[2021-05-15] MEDS: METOPROLOL TARTRATE 25 MG TABLET PO SCH ×2 (08:40→20:26)
[2021-05-15] MEDS: DOCUSATE SODIUM 100 MG/10 ML UDCUP PO SCH ×2 (08:40→21:03)
[2021-05-15] MEDS: amLODIPine 5 MG TABLET PO SCH (08:41)
[2021-05-15] MEDS: BUDESONIDE/FORMOTEROL 160-4.5 INHALER 6 GM INH SCH ×2 (09:33→21:04)
[2021-05-15] MEDS: methylPREDNISolone SOD SUC 40 MG/1 ML VIAL IV SCH ×2 (09:34→21:03)
[2021-05-15] MEDS: LEVOFLOXACIN INJ 750 MG/150 ML PREMIX IV SCH (15:40)
[2021-05-15] MEDS ORDERED: OLANZapine 5 MG TABLET PO SCH (21:00)
[2021-05-15] MEDS: INSULIN GLARGINE 100 UNIT/ML SUBCUT SCH (21:04)
[2021-05-16] MEDS: INSULIN REGULAR 100 UNIT/ML SUBCUT SCH ×6 (00:39→21:38)
[2021-05-16] MEDS: ALBUTEROL/IPRATROPIUM 3 ML NEB RESP TX SCH ×7 (07:45→23:28)
[2021-05-16] MEDS: methylPREDNISolone SOD SUC 40 MG/1 ML VIAL IV SCH ×2 (08:41→21:04)
[2021-05-16] MEDS: FLUCONAZOLE 40 MG/ML 35 ML/BOTTLE PER TUBE SCH (08:42)
[2021-05-16] MEDS: DOCUSATE SODIUM 100 MG/10 ML UDCUP PO SCH ×2 (08:42→21:00)
[2021-05-16] MEDS: ZINC GLUCONATE 50 MG TABLET PO SCH (08:42)
[2021-05-16] MEDS: APIXABAN 5 MG TABLET PER TUBE SCH ×2 (08:43→21:01)
[2021-05-16] MEDS: FAMOTIDINE 20 MG TABLET PO SCH ×2 (08:43→21:01)
[2021-05-16] MEDS: METOPROLOL TARTRATE 25 MG TABLET PO SCH ×2 (08:43→21:01)
[2021-05-16] MEDS: CHOLECALCIFEROL 1,000 UNIT TABLET PO SCH (08:43)
[2021-05-16] MEDS: ASCORBIC ACID 500 MG TABLET PO SCH ×2 (08:43→21:00)
[2021-05-16] MEDS: CETIRIZINE 10 MG TABLET PO SCH (08:43)
[2021-05-16] MEDS: ASPIRIN CHEW 81 MG TABLET PO SCH (08:43)
[2021-05-16] MEDS: FENOFIBRATE 160 MG TABLET PO SCH (08:44)
[2021-05-16] MEDS: SIMVASTATIN 20 MG TABLET PO SCH (08:44)
[2021-05-16] MEDS: GABAPENTIN 300 MG CAPSULE PO SCH (08:44)
[2021-05-16] MEDS: amLODIPine 5 MG TABLET PO SCH (08:44)
[2021-05-16] MEDS: MENTHOL/ZINC OXIDE OINT 71 GM JAR TOP SCH ×2 (09:09→21:02)
[2021-05-16] MEDS: BUDESONIDE/FORMOTEROL 160-4.5 INHALER 6 GM INH SCH ×2 (09:50→21:39)
[2021-05-16] MEDS ORDERED: IBUPROFEN 100 MG/5 ML UDCUP PO PRN (11:30)
[2021-05-16] MEDS: INSULIN GLARGINE 100 UNIT/ML SUBCUT SCH (21:02)
[2021-05-16] MEDS: OLANZapine 2.5 MG TABLET PO SCH (21:40)
[2021-05-17] MEDS: INSULIN REGULAR 100 UNIT/ML SUBCUT SCH ×6 (00:01→19:55)
[2021-05-17] MEDS: ALBUTEROL/IPRATROPIUM 3 ML NEB RESP TX SCH ×6 (03:25→23:20)
[2021-05-17] MEDS: methylPREDNISolone SOD SUC 40 MG/1 ML VIAL IV SCH ×2 (08:06→21:04)
[2021-05-17] MEDS: DOCUSATE SODIUM 100 MG/10 ML UDCUP PO SCH ×2 (08:07→20:58)
[2021-05-17] MEDS: FLUCONAZOLE 40 MG/ML 35 ML/BOTTLE PER TUBE SCH (08:07)
[2021-05-17] MEDS: ASPIRIN CHEW 81 MG TABLET PO SCH (08:08)
[2021-05-17] MEDS: FAMOTIDINE 20 MG TABLET PO SCH ×2 (08:08→20:58)
[2021-05-17] MEDS: CHOLECALCIFEROL 1,000 UNIT TABLET PO SCH (08:08)
[2021-05-17] MEDS: GABAPENTIN 300 MG CAPSULE PO SCH (08:08)
[2021-05-17] MEDS: amLODIPine 5 MG TABLET PO SCH (08:08)
[2021-05-17] MEDS: ZINC GLUCONATE 50 MG TABLET PO SCH (08:08)
[2021-05-17] MEDS: SIMVASTATIN 20 MG TABLET PO SCH (08:09)
[2021-05-17] MEDS: CETIRIZINE 10 MG TABLET PO SCH (08:09)
[2021-05-17] MEDS: ASCORBIC ACID 500 MG TABLET PO SCH ×2 (08:09→20:58)
[2021-05-17] MEDS: APIXABAN 5 MG TABLET PER TUBE SCH ×2 (08:09→20:58)
[2021-05-17] MEDS: FENOFIBRATE 160 MG TABLET PO SCH (08:09)
[2021-05-17] MEDS: METOPROLOL TARTRATE 25 MG TABLET PO SCH ×2 (08:09→20:59)
[2021-05-17] MEDS: BUDESONIDE/FORMOTEROL 160-4.5 INHALER 6 GM INH SCH ×2 (08:37→21:01)
[2021-05-17] MEDS: MENTHOL/ZINC OXIDE OINT 71 GM JAR TOP SCH ×2 (08:37→21:01)
[2021-05-17] MEDS: OLANZapine 2.5 MG TABLET PO SCH (20:59)
[2021-05-17] MEDS: INSULIN GLARGINE 100 UNIT/ML SUBCUT SCH (21:02)
[2021-05-18] MEDS: ALBUTEROL/IPRATROPIUM 3 ML NEB RESP TX SCH ×6 (03:35→23:44)
[2021-05-18 03:56] LABS: ABG Base Excess 6.4 MMOL/L (-2.5-2.5); ABG HCO3 30.7 MMOL/L (20-26); ABG Oxygen Saturation 95.6 % (95-100); ABG PCO2 42.8 MM HG (35-48); ABG PH 7.473 (7.35-7.45)
[2021-05-18] MEDS: INSULIN REGULAR 100 UNIT/ML SUBCUT SCH ×6 (04:27→21:06)
[2021-05-18 08:14] LABS: Basophils % 0.1 % (0.0-0.8); Hematocrit 41.9 VOL% (35.7-47.0); Hemoglobin 13.1 GM/DL (12.0-16.0); Immature Granulocytes % 0.5 %; Immature Granulocytes Absolute 0.04 #; Lymphocytes # 1.1 10*3/uL (1.4-4.0); Lymphocytes % 14.4 % (21.3-54.2); Mean Corpuscular HGB Conc 31.3 GM/DL (32-36); Mean Corpuscular Volume 88.6 FL (87-102); Mean Platelet Volume 13.1 FL (9.6-12.0); Monocytes % 9.2 % (1.7-12.7); Neutrophils % 75.8 % (38.7-73.9); Platelet Count 193 T/CUMM (130-400); Red Blood Count 4.73 MC/CUMM (3.8-5.5); White Blood Count 7.8 T/CUMM (4-12)
[2021-05-18] MEDS: methylPREDNISolone SOD SUC 40 MG/1 ML VIAL IV SCH ×2 (08:29→21:07)
[2021-05-18] MEDS: FLUCONAZOLE 40 MG/ML 35 ML/BOTTLE PER TUBE SCH (08:30)
[2021-05-18] MEDS: ASCORBIC ACID 500 MG TABLET PO SCH ×2 (08:31→21:14)
[2021-05-18] MEDS: FAMOTIDINE 20 MG TABLET PO SCH ×2 (08:31→21:15)
[2021-05-18] MEDS: APIXABAN 5 MG TABLET PER TUBE SCH ×2 (08:31→21:14)
[2021-05-18] MEDS: FENOFIBRATE 160 MG TABLET PO SCH (08:31)
[2021-05-18] MEDS: ESCITALOPRAM 10 MG TABLET PO SCH (08:31)
[2021-05-18] MEDS: DOCUSATE SODIUM 100 MG/10 ML UDCUP PO SCH ×2 (08:31→21:14)
[2021-05-18] MEDS: ZINC GLUCONATE 50 MG TABLET PO SCH (08:31)
[2021-05-18] MEDS: CETIRIZINE 10 MG TABLET PO SCH (08:31)
[2021-05-18] MEDS: amLODIPine 5 MG TABLET PO SCH (08:31)
[2021-05-18] MEDS: GABAPENTIN 300 MG CAPSULE PO SCH (08:31)
[2021-05-18] MEDS: CHOLECALCIFEROL 1,000 UNIT TABLET PO SCH (08:32)
[2021-05-18] MEDS: MENTHOL/ZINC OXIDE OINT 71 GM JAR TOP SCH ×2 (08:32→21:14)
[2021-05-18] MEDS: BUDESONIDE/FORMOTEROL 160-4.5 INHALER 6 GM INH SCH ×2 (08:32→21:15)
[2021-05-18] MEDS: METOPROLOL TARTRATE 25 MG TABLET PO SCH ×2 (08:32→21:14)
[2021-05-18] MEDS: ASPIRIN CHEW 81 MG TABLET PO SCH (08:32)
[2021-05-18] MEDS: SIMVASTATIN 20 MG TABLET PO SCH (08:33)
[2021-05-18 08:38] LABS: Hypochromasia 1+; Microcytosis 1+
[2021-05-18 08:39] LABS: Ovalocytes Slight
[2021-05-18 08:43] LABS: Calcium 9.5 MG/DL (8.5-10.1); Osmolality,Calculated 284.2 MOS/KG (273-304); Potassium 5.8 MMOL/L (3.5-5.1)
[2021-05-18] MEDS: MORPHINE 2 MG/1 ML SYRINGE IV PRN (13:30)
[2021-05-18] MEDS ORDERED: SODIUM POLYSTYRENE SULFATE 15 GM/60 ML BOTTLE PO PRN (14:39)
[2021-05-18] MEDS: INSULIN GLARGINE 100 UNIT/ML SUBCUT SCH (21:06)
[2021-05-18] MEDS: OLANZapine 2.5 MG TABLET PO SCH (21:14)
[2021-05-19] MEDS: INSULIN REGULAR 100 UNIT/ML SUBCUT SCH ×6 (00:05→19:20)
[2021-05-19] MEDS: ALBUTEROL/IPRATROPIUM 3 ML NEB RESP TX SCH ×7 (03:41→23:16)
[2021-05-19 05:14] LABS: Basophils % 0.1 % (0.0-0.8); Hematocrit 34.8 VOL% (35.7-47.0); Hemoglobin 10.9 GM/DL (12.0-16.0); Immature Granulocytes % 0.8 %; Immature Granulocytes Absolute 0.07 #; Lymphocytes % 11.4 % (21.3-54.2); Mean Corpuscular HGB Conc 31.3 GM/DL (32-36); Mean Corpuscular Volume 86.4 FL (87-102); Mean Platelet Volume 11.6 FL (9.6-12.0); Monocytes % 6.5 % (1.7-12.7); Neutrophils % 81.2 % (38.7-73.9); Platelet Count 277 T/CUMM (130-400); Red Blood Count 4.03 MC/CUMM (3.8-5.5); Red Cell Distribution Width 15.9 % (9.3-17.3); White Blood Count 8.4 T/CUMM (4-12)
[2021-05-19 05:48] LABS: Calcium 9.3 MG/DL (8.5-10.1); Osmolality,Calculated 288.2 MOS/KG (273-304); Potassium 5.9 MMOL/L (3.5-5.1)
[2021-05-19] MEDS: GABAPENTIN 300 MG CAPSULE PO SCH (08:41)
[2021-05-19] MEDS: ESCITALOPRAM 10 MG TABLET PO SCH (08:41)
[2021-05-19] MEDS: DOCUSATE SODIUM 100 MG/10 ML UDCUP PO SCH ×2 (08:42→21:13)
[2021-05-19] MEDS: FENOFIBRATE 160 MG TABLET PO SCH (08:42)
[2021-05-19] MEDS: ZINC GLUCONATE 50 MG TABLET PO SCH (08:42)
[2021-05-19] MEDS: SIMVASTATIN 20 MG TABLET PO SCH (08:42)
[2021-05-19] MEDS: methylPREDNISolone SOD SUC 40 MG/1 ML VIAL IV SCH ×2 (08:42→21:12)
[2021-05-19] MEDS: APIXABAN 5 MG TABLET PER TUBE SCH ×2 (08:42→21:14)
[2021-05-19] MEDS: amLODIPine 5 MG TABLET PO SCH (08:43)
[2021-05-19] MEDS: CETIRIZINE 10 MG TABLET PO SCH (08:43)
[2021-05-19] MEDS: CHOLECALCIFEROL 1,000 UNIT TABLET PO SCH (08:43)
[2021-05-19] MEDS: ASCORBIC ACID 500 MG TABLET PO SCH ×2 (08:43→21:13)
[2021-05-19] MEDS: METOPROLOL TARTRATE 25 MG TABLET PO SCH ×2 (08:43→21:16)
[2021-05-19] MEDS: ASPIRIN CHEW 81 MG TABLET PO SCH (08:43)
[2021-05-19] MEDS: FAMOTIDINE 20 MG TABLET PO SCH ×2 (08:44→21:13)
[2021-05-19] MEDS: MENTHOL/ZINC OXIDE OINT 71 GM JAR TOP SCH ×2 (08:45→21:14)
[2021-05-19] MEDS: BUDESONIDE/FORMOTEROL 160-4.5 INHALER 6 GM INH SCH ×2 (10:26→21:14)
[2021-05-19] MEDS ORDERED: SODIUM POLYSTYRENE SULFATE 15 GM/60 ML BOTTLE PO ONE (11:12)
[2021-05-19] MEDS: OLANZapine 2.5 MG TABLET PO SCH (21:13)
[2021-05-19] MEDS: INSULIN GLARGINE 100 UNIT/ML SUBCUT SCH (21:13)
[2021-05-20] MEDS: INSULIN REGULAR 100 UNIT/ML SUBCUT SCH ×7 (00:24→23:42)
[2021-05-20] MEDS: ALBUTEROL/IPRATROPIUM 3 ML NEB RESP TX SCH ×6 (03:40→23:36)
[2021-05-20 06:03] LABS: Basophils % 0.1 % (0.0-0.8); Hemoglobin 9.8 GM/DL (12.0-16.0); Immature Granulocytes % 0.7 %; Immature Granulocytes Absolute 0.05 #; Lymphocytes # 0.8 10*3/uL (1.4-4.0); Lymphocytes % 10.7 % (21.3-54.2); Mean Corpuscular HGB Conc 31.6 GM/DL (32-36); Mean Corpuscular Volume 85.9 FL (87-102); Mean Platelet Volume 12.4 FL (9.6-12.0); Monocytes % 7.3 % (1.7-12.7); Neutrophils % 81.2 % (38.7-73.9); Platelet Count 286 T/CUMM (130-400); Red Blood Count 3.61 MC/CUMM (3.8-5.5); Red Cell Distribution Width 15.7 % (9.3-17.3); White Blood Count 7.4 T/CUMM (4-12)
[2021-05-20 06:24] LABS: Calcium 8.8 MG/DL (8.5-10.1); Osmolality,Calculated 292.7 MOS/KG (273-304); Potassium 4.1 MMOL/L (3.5-5.1)
[2021-05-20] MEDS: methylPREDNISolone SOD SUC 40 MG/1 ML VIAL IV SCH ×2 (08:04→20:10)
[2021-05-20] MEDS: DOCUSATE SODIUM 100 MG/10 ML UDCUP PO SCH ×2 (08:05→20:10)
[2021-05-20] MEDS: CHOLECALCIFEROL 1,000 UNIT TABLET PO SCH (08:06)
[2021-05-20] MEDS: FAMOTIDINE 20 MG TABLET PO SCH ×2 (08:06→20:10)
[2021-05-20] MEDS: ASPIRIN CHEW 81 MG TABLET PO SCH (08:06)
[2021-05-20] MEDS: FENOFIBRATE 160 MG TABLET PO SCH (08:06)
[2021-05-20] MEDS: ZINC GLUCONATE 50 MG TABLET PO SCH (08:07)
[2021-05-20] MEDS: SIMVASTATIN 20 MG TABLET PO SCH (08:07)
[2021-05-20] MEDS: CETIRIZINE 10 MG TABLET PO SCH (08:07)
[2021-05-20] MEDS: ASCORBIC ACID 500 MG TABLET PO SCH ×2 (08:07→20:11)
[2021-05-20] MEDS: GABAPENTIN 300 MG CAPSULE PO SCH (08:07)
[2021-05-20] MEDS: APIXABAN 5 MG TABLET PER TUBE SCH ×2 (08:08→20:11)
[2021-05-20] MEDS: amLODIPine 5 MG TABLET PO SCH (08:08)
[2021-05-20] MEDS: ESCITALOPRAM 10 MG TABLET PO SCH (08:08)
[2021-05-20] MEDS: MENTHOL/ZINC OXIDE OINT 71 GM JAR TOP SCH ×2 (08:09→20:11)
[2021-05-20] MEDS: BUDESONIDE/FORMOTEROL 160-4.5 INHALER 6 GM INH SCH ×2 (08:10→20:11)
[2021-05-20] MEDS: METOPROLOL TARTRATE 25 MG TABLET PO SCH ×3 (09:40→20:11)
[2021-05-20] MEDS: INSULIN GLARGINE 100 UNIT/ML SUBCUT SCH (20:10)
[2021-05-20] MEDS: OLANZapine 2.5 MG TABLET PO SCH (20:11)
[2021-05-21] MEDS: ALBUTEROL/IPRATROPIUM 3 ML NEB RESP TX SCH ×5 (02:23→23:10)
[2021-05-21] MEDS: INSULIN REGULAR 100 UNIT/ML SUBCUT SCH ×5 (05:15→21:03)
[2021-05-21 06:20] LABS: Hematocrit 33.7 VOL% (35.7-47.0); Hemoglobin 10.6 GM/DL (12.0-16.0); Immature Granulocytes % 0.7 %; Immature Granulocytes Absolute 0.06 #; Lymphocytes # 0.7 10*3/uL (1.4-4.0); Lymphocytes % 8.6 % (21.3-54.2); Mean Corpuscular HGB Conc 31.5 GM/DL (32-36); Mean Platelet Volume 11.5 FL (9.6-12.0); Monocytes % 6.4 % (1.7-12.7); Neutrophils % 84.3 % (38.7-73.9); Platelet Count 278 T/CUMM (130-400); Red Blood Count 3.92 MC/CUMM (3.8-5.5); Red Cell Distribution Width 15.6 % (9.3-17.3); White Blood Count 8.1 T/CUMM (4-12)
[2021-05-21 06:51] LABS: Calcium 9.2 MG/DL (8.5-10.1); Potassium 4.7 MMOL/L (3.5-5.1)
[2021-05-21] MEDS: MENTHOL/ZINC OXIDE OINT 71 GM JAR TOP SCH ×2 (08:01→20:30)
[2021-05-21] MEDS: FENOFIBRATE 160 MG TABLET PO SCH (08:01)
[2021-05-21] MEDS: DOCUSATE SODIUM 100 MG/10 ML UDCUP PO SCH ×2 (08:01→20:30)
[2021-05-21] MEDS: FAMOTIDINE 20 MG TABLET PO SCH ×2 (08:01→20:30)
[2021-05-21] MEDS: GABAPENTIN 300 MG CAPSULE PO SCH (08:01)
[2021-05-21] MEDS: ASCORBIC ACID 500 MG TABLET PO SCH ×2 (08:01→20:30)
[2021-05-21] MEDS: APIXABAN 5 MG TABLET PER TUBE SCH ×2 (08:01→20:30)
[2021-05-21] MEDS: CHOLECALCIFEROL 1,000 UNIT TABLET PO SCH (08:01)
[2021-05-21] MEDS: SIMVASTATIN 20 MG TABLET PO SCH (08:01)
[2021-05-21] MEDS: amLODIPine 5 MG TABLET PO SCH (08:01)
[2021-05-21] MEDS: ZINC GLUCONATE 50 MG TABLET PO SCH (08:01)
[2021-05-21] MEDS: CETIRIZINE 10 MG TABLET PO SCH (08:01)
[2021-05-21] MEDS: ESCITALOPRAM 10 MG TABLET PO SCH (08:01)
[2021-05-21] MEDS: ASPIRIN CHEW 81 MG TABLET PO SCH (08:01)
[2021-05-21] MEDS: methylPREDNISolone SOD SUC 40 MG/1 ML VIAL IV SCH ×2 (08:05→20:30)
[2021-05-21] MEDS: BUDESONIDE/FORMOTEROL 160-4.5 INHALER 6 GM INH SCH ×2 (08:15→20:30)
[2021-05-21] MEDS: METOPROLOL TARTRATE 25 MG TABLET PO SCH ×2 (12:55→20:30)
[2021-05-21] MEDS: OLANZapine 2.5 MG TABLET PO SCH (20:30)
[2021-05-21] MEDS: INSULIN GLARGINE 100 UNIT/ML SUBCUT SCH (20:30)
[2021-05-22] MEDS: INSULIN REGULAR 100 UNIT/ML SUBCUT SCH ×6 (00:27→20:09)
[2021-05-22] MEDS: ALBUTEROL/IPRATROPIUM 3 ML NEB RESP TX SCH ×6 (04:31→23:45)
[2021-05-22] MEDS: METOPROLOL TARTRATE 25 MG TABLET PO SCH ×2 (08:25→20:07)
[2021-05-22] MEDS: DOCUSATE SODIUM 100 MG/10 ML UDCUP PO SCH ×2 (08:34→20:06)
[2021-05-22] MEDS: ASCORBIC ACID 500 MG TABLET PO SCH ×2 (08:34→20:06)
[2021-05-22] MEDS: ZINC GLUCONATE 50 MG TABLET PO SCH (08:34)
[2021-05-22] MEDS: CHOLECALCIFEROL 1,000 UNIT TABLET PO SCH (08:34)
[2021-05-22] MEDS: ASPIRIN CHEW 81 MG TABLET PO SCH (08:34)
[2021-05-22] MEDS: GABAPENTIN 300 MG CAPSULE PO SCH (08:34)
[2021-05-22] MEDS: FENOFIBRATE 160 MG TABLET PO SCH (08:34)
[2021-05-22] MEDS: CETIRIZINE 10 MG TABLET PO SCH (08:34)
[2021-05-22] MEDS: SIMVASTATIN 20 MG TABLET PO SCH (08:35)
[2021-05-22] MEDS: FAMOTIDINE 20 MG TABLET PO SCH ×2 (08:35→20:06)
[2021-05-22] MEDS: APIXABAN 5 MG TABLET PER TUBE SCH ×2 (08:35→20:07)
[2021-05-22] MEDS: amLODIPine 5 MG TABLET PO SCH (08:35)
[2021-05-22] MEDS: methylPREDNISolone SOD SUC 40 MG/1 ML VIAL IV SCH ×2 (08:35→20:31)
[2021-05-22] MEDS: ESCITALOPRAM 10 MG TABLET PO SCH (08:35)
[2021-05-22] MEDS: BUDESONIDE/FORMOTEROL 160-4.5 INHALER 6 GM INH SCH (08:36)
[2021-05-22] MEDS: MENTHOL/ZINC OXIDE OINT 71 GM JAR TOP SCH ×2 (09:54→20:32)
[2021-05-22] MEDS: FLUCONAZOLE INJ 200 MG/100 ML PREMIX IV SCH (14:02)
[2021-05-22] MEDS: MORPHINE 2 MG/1 ML SYRINGE IV PRN (18:02)
[2021-05-22] MEDS: OLANZapine 2.5 MG TABLET PO SCH (20:06)
[2021-05-22] MEDS: INSULIN GLARGINE 100 UNIT/ML SUBCUT SCH (20:07)
[2021-05-23] MEDS: INSULIN REGULAR 100 UNIT/ML SUBCUT SCH ×7 (02:10→23:53)
[2021-05-23] MEDS: BUDESONIDE/FORMOTEROL 160-4.5 INHALER 6 GM INH SCH ×3 (02:10→21:38)
[2021-05-23] MEDS: ALBUTEROL/IPRATROPIUM 3 ML NEB RESP TX SCH ×5 (04:00→20:09)
[2021-05-23 06:35] LABS: Bilirubin,Total 0.6 MG/DL (0.20-1.00); Calcium 9.5 MG/DL (8.5-10.1); Potassium 4.8 MMOL/L (3.5-5.1); Total Protein 6.4 G/DL (6.4-8.2)
[2021-05-23] MEDS: ZINC GLUCONATE 50 MG TABLET PO SCH (08:24)
[2021-05-23] MEDS: DOCUSATE SODIUM 100 MG/10 ML UDCUP PO SCH ×2 (08:24→21:37)
[2021-05-23] MEDS: FAMOTIDINE 20 MG TABLET PO SCH ×2 (08:24→21:37)
[2021-05-23] MEDS: ASCORBIC ACID 500 MG TABLET PO SCH ×2 (08:25→21:37)
[2021-05-23] MEDS: CETIRIZINE 10 MG TABLET PO SCH (08:25)
[2021-05-23] MEDS: SIMVASTATIN 20 MG TABLET PO SCH (08:25)
[2021-05-23] MEDS: amLODIPine 5 MG TABLET PO SCH (08:25)
[2021-05-23] MEDS: FENOFIBRATE 160 MG TABLET PO SCH (08:25)
[2021-05-23] MEDS: METOPROLOL TARTRATE 25 MG TABLET PO SCH ×2 (08:25→21:37)
[2021-05-23] MEDS: APIXABAN 5 MG TABLET PER TUBE SCH ×2 (08:25→21:38)
[2021-05-23] MEDS: ESCITALOPRAM 10 MG TABLET PO SCH (08:25)
[2021-05-23] MEDS: GABAPENTIN 300 MG CAPSULE PO SCH (08:25)
[2021-05-23] MEDS: ASPIRIN CHEW 81 MG TABLET PO SCH (08:25)
[2021-05-23] MEDS: methylPREDNISolone SOD SUC 40 MG/1 ML VIAL IV SCH ×2 (08:26→21:40)
[2021-05-23] MEDS: CHOLECALCIFEROL 1,000 UNIT TABLET PO SCH (08:26)
[2021-05-23] MEDS: MENTHOL/ZINC OXIDE OINT 71 GM JAR TOP SCH ×2 (09:00→22:30)
[2021-05-23] MEDS: FLUCONAZOLE INJ 200 MG/100 ML PREMIX IV SCH (14:29)
[2021-05-23] MEDS: OLANZapine 2.5 MG TABLET PO SCH (21:37)
[2021-05-23] MEDS: INSULIN GLARGINE 100 UNIT/ML SUBCUT SCH (22:00)
[2021-05-24] MEDS: ALBUTEROL/IPRATROPIUM 3 ML NEB RESP TX SCH ×7 (01:12→23:50)
[2021-05-24] MEDS: INSULIN REGULAR 100 UNIT/ML SUBCUT SCH ×6 (06:19→20:38)
[2021-05-24] MEDS: DOCUSATE SODIUM 100 MG/10 ML UDCUP PO SCH ×2 (09:05→20:37)
[2021-05-24] MEDS: ASPIRIN CHEW 81 MG TABLET PO SCH (09:06)
[2021-05-24] MEDS: CHOLECALCIFEROL 1,000 UNIT TABLET PO SCH (09:06)
[2021-05-24] MEDS: methylPREDNISolone SOD SUC 40 MG/1 ML VIAL IV SCH ×2 (09:06→20:39)
[2021-05-24] MEDS: FENOFIBRATE 160 MG TABLET PO SCH (09:06)
[2021-05-24] MEDS: FAMOTIDINE 20 MG TABLET PO SCH ×2 (09:06→20:37)
[2021-05-24] MEDS: ZINC GLUCONATE 50 MG TABLET PO SCH (09:07)
[2021-05-24] MEDS: METOPROLOL TARTRATE 25 MG TABLET PO SCH ×2 (09:07→20:38)
[2021-05-24] MEDS: amLODIPine 5 MG TABLET PO SCH (09:07)
[2021-05-24] MEDS: SIMVASTATIN 20 MG TABLET PO SCH (09:07)
[2021-05-24] MEDS: GABAPENTIN 300 MG CAPSULE PO SCH (09:07)
[2021-05-24] MEDS: CETIRIZINE 10 MG TABLET PO SCH (09:07)
[2021-05-24] MEDS: ASCORBIC ACID 500 MG TABLET PO SCH ×2 (09:07→20:38)
[2021-05-24] MEDS: APIXABAN 5 MG TABLET PER TUBE SCH ×2 (09:07→20:37)
[2021-05-24] MEDS: ESCITALOPRAM 10 MG TABLET PO SCH (09:08)
[2021-05-24] MEDS: BUDESONIDE/FORMOTEROL 160-4.5 INHALER 6 GM INH SCH (09:40)
[2021-05-24] MEDS: MENTHOL/ZINC OXIDE OINT 71 GM JAR TOP SCH ×2 (09:40→20:39)
[2021-05-24] MEDS: FLUCONAZOLE INJ 200 MG/100 ML PREMIX IV SCH (14:57)
[2021-05-24] MEDS: INSULIN GLARGINE 100 UNIT/ML SUBCUT SCH (20:38)
[2021-05-24] MEDS: OLANZapine 2.5 MG TABLET PO SCH (20:38)
[2021-05-25] MEDS: BUDESONIDE/FORMOTEROL 160-4.5 INHALER 6 GM INH SCH ×3 (00:11→21:15)
[2021-05-25] MEDS: INSULIN REGULAR 100 UNIT/ML SUBCUT SCH ×7 (00:16→23:21)
[2021-05-25] MEDS: ALBUTEROL/IPRATROPIUM 3 ML NEB RESP TX SCH ×6 (04:25→22:57)
[2021-05-25 06:26] LABS: Basophils % 0.1 % (0.0-0.8); Hematocrit 33.6 VOL% (35.7-47.0); Hemoglobin 10.9 GM/DL (12.0-16.0); Immature Granulocytes % 0.7 %; Immature Granulocytes Absolute 0.06 #; Lymphocytes # 0.8 10*3/uL (1.4-4.0); Lymphocytes % 10.1 % (21.3-54.2); Mean Corpuscular HGB Conc 32.4 GM/DL (32-36); Mean Corpuscular Volume 87.5 FL (87-102); Mean Platelet Volume 12.8 FL (9.6-12.0); Monocytes % 5.6 % (1.7-12.7); Neutrophils % 83.5 % (38.7-73.9); Platelet Count 245 T/CUMM (130-400); Red Blood Count 3.84 MC/CUMM (3.8-5.5); Red Cell Distribution Width 15.5 % (9.3-17.3); White Blood Count 8.2 T/CUMM (4-12)
[2021-05-25 06:53] LABS: Bilirubin,Total 0.5 MG/DL (0.20-1.00); Calcium 9.7 MG/DL (8.5-10.1); Osmolality,Calculated 287.4 MOS/KG (273-304); Potassium 4.9 MMOL/L (3.5-5.1); Total Protein 6.6 G/DL (6.4-8.2)
[2021-05-25] MEDS: CHOLECALCIFEROL 1,000 UNIT TABLET PO SCH (09:08)
[2021-05-25] MEDS: ZINC GLUCONATE 50 MG TABLET PO SCH (09:08)
[2021-05-25] MEDS: CETIRIZINE 10 MG TABLET PO SCH (09:08)
[2021-05-25] MEDS: METOPROLOL TARTRATE 25 MG TABLET PO SCH ×2 (09:08→21:14)
[2021-05-25] MEDS: GABAPENTIN 300 MG CAPSULE PO SCH (09:08)
[2021-05-25] MEDS: DOCUSATE SODIUM 100 MG/10 ML UDCUP PO SCH ×2 (09:08→21:13)
[2021-05-25] MEDS: amLODIPine 5 MG TABLET PO SCH (09:08)
[2021-05-25] MEDS: FAMOTIDINE 20 MG TABLET PO SCH ×2 (09:09→21:14)
[2021-05-25] MEDS: ASCORBIC ACID 500 MG TABLET PO SCH ×2 (09:09→21:14)
[2021-05-25] MEDS: APIXABAN 5 MG TABLET PER TUBE SCH ×2 (09:09→21:14)
[2021-05-25] MEDS: methylPREDNISolone SOD SUC 40 MG/1 ML VIAL IV SCH ×2 (09:09→21:15)
[2021-05-25] MEDS: ASPIRIN CHEW 81 MG TABLET PO SCH (09:09)
[2021-05-25] MEDS: FENOFIBRATE 160 MG TABLET PO SCH (09:09)
[2021-05-25] MEDS: ESCITALOPRAM 10 MG TABLET PO SCH (09:09)
[2021-05-25] MEDS: MENTHOL/ZINC OXIDE OINT 71 GM JAR TOP SCH ×2 (09:10→21:15)
[2021-05-25] MEDS: SIMVASTATIN 20 MG TABLET PO SCH (09:14)
[2021-05-25] MEDS: FLUCONAZOLE INJ 200 MG/100 ML PREMIX IV SCH (13:29)
[2021-05-25] MEDS: INSULIN GLARGINE 100 UNIT/ML SUBCUT SCH (21:13)
[2021-05-25] MEDS: OLANZapine 2.5 MG TABLET PO SCH (21:14)
[2021-05-26] MEDS: ALBUTEROL/IPRATROPIUM 3 ML NEB RESP TX SCH ×6 (03:00→22:58)
[2021-05-26] MEDS: INSULIN REGULAR 100 UNIT/ML SUBCUT SCH ×6 (04:42→23:20)
[2021-05-26] MEDS: APIXABAN 5 MG TABLET PER TUBE SCH ×2 (09:41→21:22)
[2021-05-26] MEDS: methylPREDNISolone SOD SUC 40 MG/1 ML VIAL IV SCH ×2 (09:41→21:21)
[2021-05-26] MEDS: ASCORBIC ACID 500 MG TABLET PO SCH ×2 (09:42→21:22)
[2021-05-26] MEDS: DOCUSATE SODIUM 100 MG/10 ML UDCUP PO SCH ×2 (09:42→21:21)
[2021-05-26] MEDS: FENOFIBRATE 160 MG TABLET PO SCH (09:42)
[2021-05-26] MEDS: METOPROLOL TARTRATE 25 MG TABLET PO SCH ×2 (09:42→21:22)
[2021-05-26] MEDS: CETIRIZINE 10 MG TABLET PO SCH (09:42)
[2021-05-26] MEDS: ZINC GLUCONATE 50 MG TABLET PO SCH (09:42)
[2021-05-26] MEDS: FAMOTIDINE 20 MG TABLET PO SCH ×2 (09:42→21:21)
[2021-05-26] MEDS: ESCITALOPRAM 10 MG TABLET PO SCH (09:43)
[2021-05-26] MEDS: ASPIRIN CHEW 81 MG TABLET PO SCH (09:43)
[2021-05-26] MEDS: amLODIPine 5 MG TABLET PO SCH (09:43)
[2021-05-26] MEDS: GABAPENTIN 300 MG CAPSULE PO SCH (09:43)
[2021-05-26] MEDS: CHOLECALCIFEROL 1,000 UNIT TABLET PO SCH (09:43)
[2021-05-26] MEDS: BUDESONIDE/FORMOTEROL 160-4.5 INHALER 6 GM INH SCH ×2 (09:44→21:22)
[2021-05-26] MEDS: MENTHOL/ZINC OXIDE OINT 71 GM JAR TOP SCH ×2 (09:44→21:22)
[2021-05-26] MEDS: FLUCONAZOLE INJ 200 MG/100 ML PREMIX IV SCH (14:10)
[2021-05-26] MEDS ORDERED: TUBERCULIN SKIN TEST 0.1 ML SYRINGE INTRADERM ONE (17:46)
[2021-05-26] MEDS: SIMVASTATIN 20 MG TABLET PO SCH (21:21)
[2021-05-26] MEDS: INSULIN GLARGINE 100 UNIT/ML SUBCUT SCH (21:21)
[2021-05-26] MEDS: OLANZapine 2.5 MG TABLET PO SCH (21:22)
[2021-05-27] MEDS: ALBUTEROL/IPRATROPIUM 3 ML NEB RESP TX SCH ×5 (03:00→18:24)
[2021-05-27] MEDS: INSULIN REGULAR 100 UNIT/ML SUBCUT SCH ×5 (04:09→21:10)
[2021-05-27 06:17] LABS: Hematocrit 30.8 VOL% (35.7-47.0); Hemoglobin 9.7 GM/DL (12.0-16.0); Immature Granulocytes % 0.7 %; Immature Granulocytes Absolute 0.05 #; Lymphocytes # 0.8 10*3/uL (1.4-4.0); Lymphocytes % 11.1 % (21.3-54.2); Mean Corpuscular HGB Conc 31.5 GM/DL (32-36); Mean Corpuscular Volume 86.8 FL (87-102); Mean Platelet Volume 12.6 FL (9.6-12.0); Monocytes % 4.6 % (1.7-12.7); Neutrophils % 83.6 % (38.7-73.9); Platelet Count 236 T/CUMM (130-400); Red Blood Count 3.55 MC/CUMM (3.8-5.5); Red Cell Distribution Width 15.3 % (9.3-17.3); White Blood Count 7.2 T/CUMM (4-12)
[2021-05-27 06:37] LABS: Albumin 2.9 G/DL (3.4-5.0); Bilirubin,Total 0.6 MG/DL (0.20-1.00); Calcium 9.4 MG/DL (8.5-10.1); Osmolality,Calculated 288.3 MOS/KG (273-304); Potassium 4.2 MMOL/L (3.5-5.1); Total Protein 6.2 G/DL (6.4-8.2)
[2021-05-27] MEDS: ASPIRIN CHEW 81 MG TABLET PO SCH (08:38)
[2021-05-27] MEDS: ZINC GLUCONATE 50 MG TABLET PO SCH (08:38)
[2021-05-27] MEDS: CHOLECALCIFEROL 1,000 UNIT TABLET PO SCH (08:38)
[2021-05-27] MEDS: ESCITALOPRAM 10 MG TABLET PO SCH (08:39)
[2021-05-27] MEDS: ASCORBIC ACID 500 MG TABLET PO SCH ×2 (08:39→20:37)
[2021-05-27] MEDS: GABAPENTIN 300 MG CAPSULE PO SCH (08:39)
[2021-05-27] MEDS: APIXABAN 5 MG TABLET PER TUBE SCH ×2 (08:39→20:37)
[2021-05-27] MEDS: FENOFIBRATE 160 MG TABLET PO SCH (08:39)
[2021-05-27] MEDS: FAMOTIDINE 20 MG TABLET PO SCH ×2 (08:39→20:37)
[2021-05-27] MEDS: METOPROLOL TARTRATE 25 MG TABLET PO SCH ×2 (08:39→21:11)
[2021-05-27] MEDS: CETIRIZINE 10 MG TABLET PO SCH (08:40)
[2021-05-27] MEDS: amLODIPine 5 MG TABLET PO SCH (08:40)
[2021-05-27] MEDS: DOCUSATE SODIUM 100 MG/10 ML UDCUP PO SCH ×2 (08:40→20:37)
[2021-05-27] MEDS: methylPREDNISolone SOD SUC 40 MG/1 ML VIAL IV SCH ×2 (08:40→20:44)
[2021-05-27] MEDS: MENTHOL/ZINC OXIDE OINT 71 GM JAR TOP SCH ×2 (09:00→20:36)
[2021-05-27] MEDS: BUDESONIDE/FORMOTEROL 160-4.5 INHALER 6 GM INH SCH ×2 (09:00→20:36)
[2021-05-27] MEDS: FLUCONAZOLE INJ 200 MG/100 ML PREMIX IV SCH (13:55)
[2021-05-27] MEDS: SIMVASTATIN 20 MG TABLET PO SCH (20:37)
[2021-05-27] MEDS: OLANZapine 2.5 MG TABLET PO SCH (20:37)
[2021-05-27] MEDS: INSULIN GLARGINE 100 UNIT/ML SUBCUT SCH (21:11)
[2021-05-28] MEDS: ALBUTEROL/IPRATROPIUM 3 ML NEB RESP TX SCH ×7 (00:22→23:00)
[2021-05-28] MEDS: INSULIN REGULAR 100 UNIT/ML SUBCUT SCH ×6 (00:28→20:50)
[2021-05-28] MEDS: CHOLECALCIFEROL 1,000 UNIT TABLET PO SCH (10:10)
[2021-05-28] MEDS: MENTHOL/ZINC OXIDE OINT 71 GM JAR TOP SCH ×2 (10:10→21:41)
[2021-05-28] MEDS: ASPIRIN CHEW 81 MG TABLET PO SCH (10:10)
[2021-05-28] MEDS: GABAPENTIN 300 MG CAPSULE PO SCH (10:10)
[2021-05-28] MEDS: DOCUSATE SODIUM 100 MG/10 ML UDCUP PO SCH ×2 (10:10→21:40)
[2021-05-28] MEDS: CETIRIZINE 10 MG TABLET PO SCH (10:11)
[2021-05-28] MEDS: ZINC GLUCONATE 50 MG TABLET PO SCH (10:11)
[2021-05-28] MEDS: amLODIPine 5 MG TABLET PO SCH (10:11)
[2021-05-28] MEDS: APIXABAN 5 MG TABLET PER TUBE SCH ×2 (10:11→21:40)
[2021-05-28] MEDS: FENOFIBRATE 160 MG TABLET PO SCH (10:11)
[2021-05-28] MEDS: METOPROLOL TARTRATE 25 MG TABLET PO SCH ×2 (10:11→21:41)
[2021-05-28] MEDS: FAMOTIDINE 20 MG TABLET PO SCH ×2 (10:11→21:40)
[2021-05-28] MEDS: methylPREDNISolone SOD SUC 40 MG/1 ML VIAL IV SCH ×2 (10:12→21:41)
[2021-05-28] MEDS: BUDESONIDE/FORMOTEROL 160-4.5 INHALER 6 GM INH SCH ×2 (10:12→21:42)
[2021-05-28] MEDS: ASCORBIC ACID 500 MG TABLET PO SCH ×2 (10:12→21:40)
[2021-05-28] MEDS: ESCITALOPRAM 10 MG TABLET PO SCH (10:12)
[2021-05-28] MEDS: FLUCONAZOLE INJ 200 MG/100 ML PREMIX IV SCH (15:06)
[2021-05-28] MEDS: OLANZapine 2.5 MG TABLET PO SCH (21:40)
[2021-05-28] MEDS: INSULIN GLARGINE 100 UNIT/ML SUBCUT SCH (21:41)
[2021-05-28] MEDS: SIMVASTATIN 20 MG TABLET PO SCH (21:41)
[2021-05-29] MEDS: INSULIN REGULAR 100 UNIT/ML SUBCUT SCH ×6 (00:56→20:20)
[2021-05-29] MEDS: ALBUTEROL/IPRATROPIUM 3 ML NEB RESP TX SCH ×5 (03:10→19:36)
[2021-05-29] MEDS: methylPREDNISolone SOD SUC 40 MG/1 ML VIAL IV SCH ×2 (10:10→20:20)
[2021-05-29] MEDS: APIXABAN 5 MG TABLET PER TUBE SCH ×2 (10:10→20:20)
[2021-05-29] MEDS: BUDESONIDE/FORMOTEROL 160-4.5 INHALER 6 GM INH SCH ×2 (10:10→20:20)
[2021-05-29] MEDS: MENTHOL/ZINC OXIDE OINT 71 GM JAR TOP SCH ×2 (10:10→20:20)
[2021-05-29] MEDS: ESCITALOPRAM 10 MG TABLET PO SCH (10:11)
[2021-05-29] MEDS: ASCORBIC ACID 500 MG TABLET PO SCH ×2 (10:11→20:20)
[2021-05-29] MEDS: CETIRIZINE 10 MG TABLET PO SCH (10:11)
[2021-05-29] MEDS: ASPIRIN CHEW 81 MG TABLET PO SCH (10:11)
[2021-05-29] MEDS: CHOLECALCIFEROL 1,000 UNIT TABLET PO SCH (10:11)
[2021-05-29] MEDS: GABAPENTIN 300 MG CAPSULE PO SCH (10:11)
[2021-05-29] MEDS: FAMOTIDINE 20 MG TABLET PO SCH ×2 (10:11→20:20)
[2021-05-29] MEDS: amLODIPine 5 MG TABLET PO SCH (10:11)
[2021-05-29] MEDS: METOPROLOL TARTRATE 25 MG TABLET PO SCH ×2 (10:11→20:20)
[2021-05-29] MEDS: DOCUSATE SODIUM 100 MG/10 ML UDCUP PO SCH ×2 (10:12→20:08)
[2021-05-29] MEDS: FENOFIBRATE 160 MG TABLET PO SCH (10:12)
[2021-05-29] MEDS: ZINC GLUCONATE 50 MG TABLET PO SCH (10:12)
[2021-05-29] MEDS: SIMVASTATIN 20 MG TABLET PO SCH (20:20)
[2021-05-29] MEDS: OLANZapine 2.5 MG TABLET PO SCH (20:20)
[2021-05-29] MEDS: INSULIN GLARGINE 100 UNIT/ML SUBCUT SCH (20:20)
[2021-05-30] MEDS: INSULIN REGULAR 100 UNIT/ML SUBCUT SCH ×8 (00:43→23:45)
[2021-05-30] MEDS: DEXTROSE 50% 25 GM/50 ML VIAL IV PRN ×2 (00:43→05:00)
[2021-05-30] MEDS: ALBUTEROL/IPRATROPIUM 3 ML NEB RESP TX SCH ×7 (01:41→23:30)
[2021-05-30] MEDS ORDERED: PHENYLEPHRINE DRIP 40 MG/250 ML PREMIX IV ONE (04:29)
[2021-05-30] MEDS ORDERED: EPINEPHrine 1 MG/10 ML SYRINGE IV ONE (04:30)
[2021-05-30] MEDS ORDERED: PHENYLEPHRINE DRIP 40 MG/250 ML PREMIX IV PRN (04:30)
[2021-05-30 04:40] LABS: ABG Base Excess 1.1 MMOL/L (-2.5-2.5); ABG HCO3 25.5 MMOL/L (20-26); ABG PCO2 47.5 MM HG (35-48); ABG PH 7.361 (7.35-7.45); ABG TCO2 24.9 MMOL/L (23-27)
[2021-05-30] MEDS ORDERED: SODIUM CHLORIDE 0.9% 500 ML IV ONE ×2 (04:45→05:06)
[2021-05-30 04:47] LABS: Basophils % 0.1 % (0.0-0.8); Eosinophils % 0.1 % (0.00-10.9); Hematocrit 27.6 VOL% (35.7-47.0); Hemoglobin 8.8 GM/DL (12.0-16.0); Immature Granulocytes % 2.3 %; Lymphocytes # 3.9 10*3/uL (1.4-4.0); Lymphocytes % 30.4 % (21.3-54.2); Mean Corpuscular HGB Conc 31.9 GM/DL (32-36); Mean Corpuscular Volume 87.3 FL (87-102); Mean Platelet Volume 12.5 FL (9.6-12.0); Monocytes % 4.1 % (1.7-12.7); NRBC # 0.02 10*3/uL; Platelet Count 279 T/CUMM (130-400); Red Blood Count 3.16 MC/CUMM (3.8-5.5); Red Cell Distribution Width 15.7 % (9.3-17.3); White Blood Count 12.8 T/CUMM (4-12)
[2021-05-30] MEDS ORDERED: NOREPINEPHRINE 4 MG/4 ML VIAL IV ONE (04:49)
[2021-05-30] MEDS ORDERED: SODIUM CHLORIDE 0.9% 1,000 ML IV PRN (05:03)
[2021-05-30] MEDS ORDERED: fentaNYL 100 MCG/2 ML VIAL IV ONE (05:05)
[2021-05-30] MEDS ORDERED: NOREPINEPHRINE 16 MG in SODIUM CHLORIDE 0.9% 234 ML IV PRN (06:00)
[2021-05-30 06:24] LABS: Alanine Aminotransferase 24 U/L (13-56); Albumin 2.6 G/DL (3.4-5.0); Alkaline Phosphatase 42 U/L (45-117); Aspartate Amino Transferase 16 U/L (0-37); Bilirubin,Total < 0.39 MG/DL (0.20-1.00); Blood Urea Nitrogen 40 MG/DL (7-18); Calcium 9.1 MG/DL (8.5-10.1); Carbon Dioxide 28 MMOL/L (21-32); Estimated Glom Filtration Rate 70 ML/MIN; Glucose 165 MG/DL (74-106); Osmolality,Calculated 296.1 MOS/KG (273-304); Potassium 5.6 MMOL/L (3.5-5.1); Sodium 142 MMOL/L (136-145); Total Protein 5.5 G/DL (6.4-8.2)
[2021-05-30 06:30] LABS: Bacteria,Urine Occasional /HPF (Few); Bilirubin,Urine Negative (Negative); Blood, Urine Small mg/dL (Negative); Glucose,Urine (UA) 150 mg/dL (Negative); Ketones,Urine Negative (Negative); Mucus,Urine Occasional /LPF (Occasional); Nitrite,Urine Positive (Negative); Protein,Urine Negative; RBC,Urine 15 /HPF (0-4); Urine Appearance CLEAR (Clear); Urine Color Yellow (Yellow); Urine Specific Gravity 1.009 (1.001-1.035); Urine Urobilinogen < 2.0 EU/DL (0.2-1.0)
[2021-05-30] MEDS ORDERED: PHENYLEPHRINE INJ 160 MG in SODIUM CHLORIDE 0.9% 234 ML IV PRN (06:51)
[2021-05-30] MEDS: LEVOFLOXACIN INJ 500 MG/100 ML PREMIX IV SCH (08:51)
[2021-05-30] MEDS: SODIUM CHLORIDE IV PRN ×2 (09:00→23:01)
[2021-05-30] MEDS: PHENYLEPHRINE IV PRN ×2 (09:00→23:01)
[2021-05-30] MEDS: MENTHOL/ZINC OXIDE OINT 71 GM JAR TOP SCH ×2 (09:37→21:35)
[2021-05-30] MEDS: amLODIPine 5 MG TABLET PO SCH (09:38)
[2021-05-30] MEDS: methylPREDNISolone SOD SUC 40 MG/1 ML VIAL IV SCH ×2 (09:56→21:34)
[2021-05-30] MEDS: DOCUSATE SODIUM 100 MG/10 ML UDCUP PO SCH ×2 (09:58→21:32)
[2021-05-30] MEDS: ESCITALOPRAM 10 MG TABLET PO SCH (09:58)
[2021-05-30] MEDS: ZINC GLUCONATE 50 MG TABLET PO SCH (09:58)
[2021-05-30] MEDS: FENOFIBRATE 160 MG TABLET PO SCH (09:58)
[2021-05-30] MEDS: ASCORBIC ACID 500 MG TABLET PO SCH ×2 (09:58→21:32)
[2021-05-30] MEDS: GABAPENTIN 300 MG CAPSULE PO SCH (09:58)
[2021-05-30] MEDS: CHOLECALCIFEROL 1,000 UNIT TABLET PO SCH (09:58)
[2021-05-30] MEDS: FAMOTIDINE 20 MG TABLET PO SCH ×2 (09:58→21:32)
[2021-05-30] MEDS: CETIRIZINE 10 MG TABLET PO SCH (09:58)
[2021-05-30] MEDS: fentaNYL INJ 5,000 MCG in SODIUM CHLORIDE 0.9% 150 ML IV PRN (10:42)
[2021-05-30] MEDS: BUDESONIDE/FORMOTEROL 160-4.5 INHALER 6 GM INH SCH ×2 (11:09→21:45)
[2021-05-30] MEDS: ASPIRIN CHEW 81 MG TABLET PO SCH (11:46)
[2021-05-30] MEDS: METOPROLOL TARTRATE 25 MG TABLET PO SCH ×2 (11:46→21:32)
[2021-05-30 15:04] LABS: Hematocrit 30.1 VOL% (35.7-47.0); Hemoglobin 9.9 GM/DL (12.0-16.0)
[2021-05-30] MEDS: SIMVASTATIN 20 MG TABLET PO SCH (21:33)
[2021-05-30] MEDS: OLANZapine 2.5 MG TABLET PO SCH (21:34)
[2021-05-30] MEDS: INSULIN GLARGINE 100 UNIT/ML SUBCUT SCH (21:45)
[2021-05-31] MEDS: ALBUTEROL/IPRATROPIUM 3 ML NEB RESP TX SCH ×6 (03:20→23:40)
[2021-05-31 03:50] LABS: ABG Base Excess 2.4 MMOL/L (-2.5-2.5); ABG HCO3 26.6 MMOL/L (20-26); ABG Oxygen Saturation 99.7 % (95-100); ABG PCO2 41.7 MM HG (35-48); ABG PH 7.421 (7.35-7.45); ABG TCO2 24.6 MMOL/L (23-27)
[2021-05-31 04:03] LABS: Basophils % 0.1 % (0.0-0.8); Hematocrit 30.3 VOL% (35.7-47.0); Hemoglobin 9.9 GM/DL (12.0-16.0); Immature Granulocytes % 1.3 %; Immature Granulocytes Absolute 0.16 #; Lymphocytes # 1.7 10*3/uL (1.4-4.0); Lymphocytes % 13.9 % (21.3-54.2); Mean Corpuscular HGB Conc 32.7 GM/DL (32-36); Mean Corpuscular Volume 88.1 FL (87-102); Monocytes % 5.7 % (1.7-12.7); Platelet Count 244 T/CUMM (130-400); Red Blood Count 3.44 MC/CUMM (3.8-5.5); Red Cell Distribution Width 15.6 % (9.3-17.3); White Blood Count 12.5 T/CUMM (4-12)
[2021-05-31 04:16] LABS: Calcium 8.8 MG/DL (8.5-10.1); Potassium 4.9 MMOL/L (3.5-5.1)
[2021-05-31] MEDS: INSULIN REGULAR 100 UNIT/ML SUBCUT SCH ×5 (05:14→23:58)
[2021-05-31] MEDS: fentaNYL INJ 5,000 MCG in SODIUM CHLORIDE 0.9% 150 ML IV PRN (06:05)
[2021-05-31] MEDS: LEVOFLOXACIN INJ 500 MG/100 ML PREMIX IV SCH (07:51)
[2021-05-31] MEDS: GABAPENTIN 300 MG CAPSULE PO SCH (08:25)
[2021-05-31] MEDS: DOCUSATE SODIUM 100 MG/10 ML UDCUP PO SCH ×2 (08:25→21:42)
[2021-05-31] MEDS: CHOLECALCIFEROL 1,000 UNIT TABLET PO SCH (08:25)
[2021-05-31] MEDS: CETIRIZINE 10 MG TABLET PO SCH (08:26)
[2021-05-31] MEDS: FENOFIBRATE 160 MG TABLET PO SCH (08:26)
[2021-05-31] MEDS: ESCITALOPRAM 10 MG TABLET PO SCH (08:26)
[2021-05-31] MEDS: ASCORBIC ACID 500 MG TABLET PO SCH ×2 (08:26→21:42)
[2021-05-31] MEDS: ZINC GLUCONATE 50 MG TABLET PO SCH (08:26)
[2021-05-31] MEDS: FAMOTIDINE 20 MG TABLET PO SCH ×2 (08:26→21:43)
[2021-05-31] MEDS: amLODIPine 5 MG TABLET PO SCH (08:26)
[2021-05-31] MEDS: MENTHOL/ZINC OXIDE OINT 71 GM JAR TOP SCH ×2 (08:27→21:44)
[2021-05-31] MEDS: BUDESONIDE/FORMOTEROL 160-4.5 INHALER 6 GM INH SCH ×2 (08:27→21:46)
[2021-05-31] MEDS: methylPREDNISolone SOD SUC 40 MG/1 ML VIAL IV SCH ×2 (08:28→21:43)
[2021-05-31] MEDS ORDERED: MAGNESIUM SULF RIDER 2 GM/50 ML PREMIX IV ONE (09:49)
[2021-05-31] MEDS: ASPIRIN CHEW 81 MG TABLET PO SCH (11:40)
[2021-05-31] MEDS: METOPROLOL TARTRATE 25 MG TABLET PO SCH ×3 (12:04→21:42)
[2021-05-31] MEDS: METOPROLOL TARTRATE 5 MG/5 ML VIAL IV PRN ×2 (13:55→14:15)
[2021-05-31] MEDS ORDERED: LORazepam 2 MG/1 ML VIAL IV PRN ×2 (14:33→15:58)
[2021-05-31] MEDS: DEXMEDETOMIDINE 400 MCG in SODIUM CHLORIDE 0.9% 96 ML IV PRN (21:00)
[2021-05-31] MEDS: OLANZapine 2.5 MG TABLET PO SCH (21:42)
[2021-05-31] MEDS: SIMVASTATIN 20 MG TABLET PO SCH (21:42)
[2021-05-31] MEDS: INSULIN GLARGINE 100 UNIT/ML SUBCUT SCH (21:44)
[2021-05-31] MEDS: SODIUM CHLORIDE IV PRN (23:13)
[2021-05-31] MEDS: PHENYLEPHRINE IV PRN (23:13)
[2021-06-01] MEDS: ALBUTEROL/IPRATROPIUM 3 ML NEB RESP TX SCH ×6 (03:49→23:20)
[2021-06-01 05:26] LABS: ABG Base Excess 2.7 MMOL/L (-2.5-2.5); ABG HCO3 26.9 MMOL/L (20-26); ABG Oxygen Saturation 99.7 % (95-100); ABG PCO2 40.8 MM HG (35-48); ABG PH 7.431 (7.35-7.45); ABG TCO2 25.1 MMOL/L (23-27)
[2021-06-01 05:40] LABS: Hematocrit 26.2 VOL% (35.7-47.0); Hemoglobin 8.3 GM/DL (12.0-16.0); Immature Granulocytes Absolute 0.09 #; Lymphocytes # 1.2 10*3/uL (1.4-4.0); Lymphocytes % 12.6 % (21.3-54.2); Mean Corpuscular HGB Conc 31.7 GM/DL (32-36); Mean Corpuscular Volume 88.8 FL (87-102); Monocytes % 6.5 % (1.7-12.7); Neutrophils % 79.9 % (38.7-73.9); Platelet Count 184 T/CUMM (130-400); Red Blood Count 2.95 MC/CUMM (3.8-5.5); Red Cell Distribution Width 15.3 % (9.3-17.3); White Blood Count 9.3 T/CUMM (4-12)
[2021-06-01] MEDS: INSULIN REGULAR 100 UNIT/ML SUBCUT SCH ×3 (05:49→18:51)
[2021-06-01 05:55] LABS: Calcium 8.6 MG/DL (8.5-10.1); Osmolality,Calculated 293.5 MOS/KG (273-304); Potassium 4.7 MMOL/L (3.5-5.1)
[2021-06-01] MEDS: DEXMEDETOMIDINE 400 MCG in SODIUM CHLORIDE 0.9% 96 ML IV PRN (06:45)
[2021-06-01] MEDS: LEVOFLOXACIN INJ 500 MG/100 ML PREMIX IV SCH (08:34)
[2021-06-01] MEDS: amLODIPine 5 MG TABLET PO SCH (09:01)
[2021-06-01] MEDS: cefTRIAXone 1,000 MG in SODIUM CHLORIDE 0.9% 100 ML IV SCH (09:33)
[2021-06-01] MEDS: CHOLECALCIFEROL 1,000 UNIT TABLET PO SCH (09:37)
[2021-06-01] MEDS: METOPROLOL TARTRATE 25 MG TABLET PO SCH ×2 (09:37→20:41)
[2021-06-01] MEDS: FENOFIBRATE 160 MG TABLET PO SCH (09:37)
[2021-06-01] MEDS: ASCORBIC ACID 500 MG TABLET PO SCH ×2 (09:37→20:42)
[2021-06-01] MEDS: ASPIRIN CHEW 81 MG TABLET PO SCH (09:37)
[2021-06-01] MEDS: ZINC GLUCONATE 50 MG TABLET PO SCH (09:37)
[2021-06-01] MEDS: FAMOTIDINE 20 MG TABLET PO SCH ×2 (09:37→20:41)
[2021-06-01] MEDS: GABAPENTIN 300 MG CAPSULE PO SCH (09:38)
[2021-06-01] MEDS: CETIRIZINE 10 MG TABLET PO SCH (09:38)
[2021-06-01] MEDS: ESCITALOPRAM 10 MG TABLET PO SCH (09:39)
[2021-06-01] MEDS: DOCUSATE SODIUM 100 MG/10 ML UDCUP PO SCH ×2 (09:39→20:41)
[2021-06-01] MEDS: BUDESONIDE/FORMOTEROL 160-4.5 INHALER 6 GM INH SCH ×2 (09:40→20:41)
[2021-06-01] MEDS: MENTHOL/ZINC OXIDE OINT 71 GM JAR TOP SCH ×2 (09:43→20:41)
[2021-06-01] MEDS: methylPREDNISolone SOD SUC 40 MG/1 ML VIAL IV SCH ×2 (09:48→20:41)
[2021-06-01] MEDS ORDERED: POLYETHYLENE GLYCOL POWDER 17 GM PACK PO PRN (18:13)
[2021-06-01] MEDS: INSULIN GLARGINE 100 UNIT/ML SUBCUT SCH (20:41)
[2021-06-01] MEDS: SIMVASTATIN 20 MG TABLET PO SCH (20:42)
[2021-06-01] MEDS: OLANZapine 2.5 MG TABLET PO SCH (20:42)
[2021-06-02] MEDS: INSULIN REGULAR 100 UNIT/ML SUBCUT SCH ×4 (01:08→17:33)
[2021-06-02] MEDS: ALBUTEROL/IPRATROPIUM 3 ML NEB RESP TX SCH ×5 (03:02→20:48)
[2021-06-02 03:41] LABS: ABG Base Excess 5.4 MMOL/L (-2.5-2.5); ABG HCO3 29.3 MMOL/L (20-26); ABG Oxygen Saturation 99.1 % (95-100); ABG PCO2 52.1 MM HG (35-48); ABG PH 7.387 (7.35-7.45); ABG TCO2 29.1 MMOL/L (23-27)
[2021-06-02 04:40] LABS: Hematocrit 23.2 VOL% (35.7-47.0); Hemoglobin 7.5 GM/DL (12.0-16.0); Immature Granulocytes % 0.5 %; Immature Granulocytes Absolute 0.03 #; Lymphocytes # 0.7 10*3/uL (1.4-4.0); Lymphocytes % 10.2 % (21.3-54.2); Mean Corpuscular HGB Conc 32.3 GM/DL (32-36); Mean Corpuscular Volume 89.9 FL (87-102); Monocytes % 5.2 % (1.7-12.7); Neutrophils % 84.1 % (38.7-73.9); Platelet Count 141 T/CUMM (130-400); Red Blood Count 2.58 MC/CUMM (3.8-5.5); Red Cell Distribution Width 15.2 % (9.3-17.3); White Blood Count 6.6 T/CUMM (4-12)
[2021-06-02 04:57] LABS: Calcium 8.6 MG/DL (8.5-10.1); Osmolality,Calculated 289.7 MOS/KG (273-304); Potassium 5.1 MMOL/L (3.5-5.1)
[2021-06-02] MEDS ORDERED: MAGNESIUM SULF RIDER 2 GM/50 ML PREMIX IV PRN (08:25)
[2021-06-02] MEDS ORDERED: MAGNESIUM SULF RIDER 4 GM/100 ML PREMIX IV PRN (08:25)
[2021-06-02] MEDS: cefTRIAXone 1,000 MG in SODIUM CHLORIDE 0.9% 100 ML IV SCH (08:26)
[2021-06-02] MEDS: CHOLECALCIFEROL 1,000 UNIT TABLET PO SCH (08:27)
[2021-06-02] MEDS: amLODIPine 5 MG TABLET PO SCH (08:27)
[2021-06-02] MEDS: FAMOTIDINE 20 MG TABLET PO SCH ×2 (08:27→20:31)
[2021-06-02] MEDS: methylPREDNISolone SOD SUC 40 MG/1 ML VIAL IV SCH ×2 (08:27→20:33)
[2021-06-02] MEDS: DOCUSATE SODIUM 100 MG/10 ML UDCUP PO SCH ×2 (08:27→21:28)
[2021-06-02] MEDS: METOPROLOL TARTRATE 25 MG TABLET PO SCH ×2 (08:27→20:31)
[2021-06-02] MEDS: GABAPENTIN 300 MG CAPSULE PO SCH (08:27)
[2021-06-02] MEDS: CETIRIZINE 10 MG TABLET PO SCH (08:28)
[2021-06-02] MEDS: ASPIRIN CHEW 81 MG TABLET PO SCH (08:28)
[2021-06-02] MEDS: FENOFIBRATE 160 MG TABLET PO SCH (08:28)
[2021-06-02] MEDS: BUDESONIDE/FORMOTEROL 160-4.5 INHALER 6 GM INH SCH (08:28)
[2021-06-02] MEDS: ESCITALOPRAM 10 MG TABLET PO SCH (08:28)
[2021-06-02] MEDS: ASCORBIC ACID 500 MG TABLET PO SCH ×2 (08:29→20:31)
[2021-06-02] MEDS: MENTHOL/ZINC OXIDE OINT 71 GM JAR TOP SCH (08:29)
[2021-06-02] MEDS: ZINC GLUCONATE 50 MG TABLET PO SCH (08:30)
[2021-06-02] MEDS: MEROPENEM 500 MG in SODIUM CHLORIDE 0.9% 100 ML IV SCH ×3 (10:25→22:32)
[2021-06-02 14:05] LABS: Hematocrit 24.9 VOL% (35.7-47.0)
[2021-06-02] MEDS ORDERED: LACTULOSE 20 GM/30 ML UDCUP PO ONE (14:25)
[2021-06-02] MEDS ORDERED: LACTULOSE 20 GM/30 ML UDCUP PO PRN (15:35)
[2021-06-02] MEDS: INSULIN GLARGINE 100 UNIT/ML SUBCUT SCH (20:30)
[2021-06-02] MEDS: OLANZapine 2.5 MG TABLET PO SCH (20:31)
[2021-06-02] MEDS: SIMVASTATIN 20 MG TABLET PO SCH (20:32)
[2021-06-03] MEDS: ALBUTEROL/IPRATROPIUM 3 ML NEB RESP TX SCH ×7 (00:08→23:50)
[2021-06-03] MEDS: INSULIN REGULAR 100 UNIT/ML SUBCUT SCH ×4 (01:28→18:43)
[2021-06-03] MEDS: BUDESONIDE/FORMOTEROL 160-4.5 INHALER 6 GM INH SCH ×3 (01:28→22:46)
[2021-06-03] MEDS: MENTHOL/ZINC OXIDE OINT 71 GM JAR TOP SCH ×3 (01:28→22:44)
[2021-06-03] MEDS: MEROPENEM 500 MG in SODIUM CHLORIDE 0.9% 100 ML IV SCH ×3 (04:24→15:53)
[2021-06-03 04:36] LABS: ABG Base Excess 6.6 MMOL/L (-2.5-2.5); ABG HCO3 30.5 MMOL/L (20-26); ABG Oxygen Saturation 98.7 % (95-100); ABG PCO2 37.6 MM HG (35-48); ABG PH 7.512 (7.35-7.45); ABG TCO2 27.9 MMOL/L (23-27); Allen Test Positive
[2021-06-03 05:14] LABS: Basophils % 0.1 % (0.0-0.8); Eosinophils % 0.1 % (0.00-10.9); Hematocrit 25.5 VOL% (35.7-47.0); Hemoglobin 8.2 GM/DL (12.0-16.0); Immature Granulocytes % 0.6 %; Immature Granulocytes Absolute 0.08 #; Lymphocytes # 0.6 10*3/uL (1.4-4.0); Lymphocytes % 4.9 % (21.3-54.2); Mean Corpuscular HGB Conc 32.2 GM/DL (32-36); Mean Corpuscular Volume 89.2 FL (87-102); Mean Platelet Volume 13.5 FL (9.6-12.0); Monocytes % 5.3 % (1.7-12.7); Platelet Count 110 T/CUMM (130-400); Red Blood Count 2.86 MC/CUMM (3.8-5.5); Red Cell Distribution Width 15.4 % (9.3-17.3); White Blood Count 12.9 T/CUMM (4-12)
[2021-06-03 05:41] LABS: Hypochromasia 1+; Lymphocytes 4 % (20-55); Microcytosis 1+; Platelet Estimate Decreased; Segmented Neutrophils 90 % (50-85); Total Cells Counted 100
[2021-06-03 05:43] LABS: Calcium 9.3 MG/DL (8.5-10.1); Osmolality,Calculated 283.7 MOS/KG (273-304); Potassium 4.4 MMOL/L (3.5-5.1)
[2021-06-03] MEDS: FENOFIBRATE 160 MG TABLET PO SCH (10:00)
[2021-06-03] MEDS: FAMOTIDINE 20 MG TABLET PO SCH ×2 (10:00→22:46)
[2021-06-03] MEDS: ZINC GLUCONATE 50 MG TABLET PO SCH (10:00)
[2021-06-03] MEDS: GABAPENTIN 300 MG CAPSULE PO SCH (10:01)
[2021-06-03] MEDS: CHOLECALCIFEROL 1,000 UNIT TABLET PO SCH (10:01)
[2021-06-03] MEDS: ESCITALOPRAM 10 MG TABLET PO SCH (10:01)
[2021-06-03] MEDS: ASCORBIC ACID 500 MG TABLET PO SCH ×2 (10:01→22:47)
[2021-06-03] MEDS: CETIRIZINE 10 MG TABLET PO SCH (10:01)
[2021-06-03] MEDS: DOCUSATE SODIUM 100 MG/10 ML UDCUP PO SCH ×2 (10:02→22:44)
[2021-06-03] MEDS: ASPIRIN CHEW 81 MG TABLET PO SCH (10:02)
[2021-06-03] MEDS: methylPREDNISolone SOD SUC 40 MG/1 ML VIAL IV SCH ×2 (10:03→22:32)
[2021-06-03] MEDS: amLODIPine 5 MG TABLET PO SCH (11:44)
[2021-06-03] MEDS: DEXTROSE 50% 25 GM/50 ML VIAL IV PRN (13:07)
[2021-06-03] MEDS ORDERED: GLUCAGON 1 MG VIAL IM PRN (13:22)
[2021-06-03] MEDS ORDERED: DEXTROSE 50% 25 GM/50 ML VIAL IV PRN (13:22)
[2021-06-03] MEDS: METOPROLOL TARTRATE 25 MG TABLET PO SCH ×2 (13:53→22:44)
[2021-06-03] MEDS: INSULIN GLARGINE 100 UNIT/ML SUBCUT SCH (22:44)
[2021-06-03] MEDS: FERROUS SULFATE 325 MG TABLET PO SCH (22:44)
[2021-06-03] MEDS: OLANZapine 2.5 MG TABLET PO SCH (22:47)
[2021-06-03] MEDS: SIMVASTATIN 20 MG TABLET PO SCH (22:47)
[2021-06-04] MEDS: INSULIN REGULAR 100 UNIT/ML SUBCUT SCH ×4 (00:40→18:04)
[2021-06-04] MEDS: MEROPENEM 500 MG in SODIUM CHLORIDE 0.9% 100 ML IV SCH ×5 (00:42→23:41)
[2021-06-04] MEDS: ALBUTEROL/IPRATROPIUM 3 ML NEB RESP TX SCH ×3 (03:49→11:15)
[2021-06-04] MEDS: amLODIPine 5 MG TABLET PO SCH (09:51)
[2021-06-04] MEDS: METOPROLOL TARTRATE 25 MG TABLET PO SCH ×2 (09:51→23:33)
[2021-06-04] MEDS: GABAPENTIN 300 MG CAPSULE PO SCH (10:07)
[2021-06-04] MEDS: ESCITALOPRAM 10 MG TABLET PO SCH (10:07)
[2021-06-04] MEDS: FERROUS SULFATE 325 MG TABLET PO SCH ×2 (10:07→23:34)
[2021-06-04] MEDS: CHOLECALCIFEROL 1,000 UNIT TABLET PO SCH (10:07)
[2021-06-04] MEDS: ASPIRIN CHEW 81 MG TABLET PO SCH (10:07)
[2021-06-04] MEDS: ASCORBIC ACID 500 MG TABLET PO SCH ×2 (10:07→23:33)
[2021-06-04] MEDS: ZINC GLUCONATE 50 MG TABLET PO SCH (10:08)
[2021-06-04] MEDS: CETIRIZINE 10 MG TABLET PO SCH (10:08)
[2021-06-04] MEDS: methylPREDNISolone SOD SUC 40 MG/1 ML VIAL IV SCH ×2 (10:08→23:34)
[2021-06-04] MEDS: FENOFIBRATE 160 MG TABLET PO SCH (10:08)
[2021-06-04] MEDS: MENTHOL/ZINC OXIDE OINT 71 GM JAR TOP SCH ×2 (10:08→23:35)
[2021-06-04] MEDS: FAMOTIDINE 20 MG TABLET PO SCH ×2 (10:08→23:32)
[2021-06-04] MEDS: BUDESONIDE/FORMOTEROL 160-4.5 INHALER 6 GM INH SCH ×2 (10:08→23:35)
[2021-06-04] MEDS: DOCUSATE SODIUM 100 MG/10 ML UDCUP PO SCH ×2 (10:08→23:34)
[2021-06-04 10:25] LABS: Hematocrit 24.4 VOL% (35.7-47.0); Hemoglobin 7.7 GM/DL (12.0-16.0); Immature Granulocytes % 0.7 %; Immature Granulocytes Absolute 0.04 #; Lymphocytes # 0.6 10*3/uL (1.4-4.0); Lymphocytes % 11.8 % (21.3-54.2); Mean Corpuscular HGB Conc 31.6 GM/DL (32-36); Monocytes % 6.8 % (1.7-12.7); Neutrophils % 80.7 % (38.7-73.9); Platelet Count 158 T/CUMM (130-400); Red Blood Count 2.71 MC/CUMM (3.8-5.5); Red Cell Distribution Width 15.6 % (9.3-17.3); White Blood Count 5.4 T/CUMM (4-12)
[2021-06-04] MEDS ORDERED: ALBUTEROL/IPRATROPIUM 3 ML NEB RESP TX PRN (15:57)
[2021-06-04] MEDS: OLANZapine 2.5 MG TABLET PO SCH (23:33)
[2021-06-04] MEDS: SIMVASTATIN 20 MG TABLET PO SCH (23:33)
[2021-06-04] MEDS: INSULIN GLARGINE 100 UNIT/ML SUBCUT SCH (23:34)
[2021-06-05] MEDS: INSULIN REGULAR 100 UNIT/ML SUBCUT SCH ×4 (01:04→18:22)
[2021-06-05] MEDS: MEROPENEM 500 MG in SODIUM CHLORIDE 0.9% 100 ML IV SCH ×4 (03:12→21:30)
[2021-06-05 05:53] LABS: Basophils % 0.2 % (0.0-0.8); Eosinophils % 0.2 % (0.00-10.9); Hematocrit 23.6 VOL% (35.7-47.0); Hemoglobin 7.2 GM/DL (12.0-16.0); Immature Granulocytes % 0.8 %; Immature Granulocytes Absolute 0.05 #; Lymphocytes # 0.8 10*3/uL (1.4-4.0); Lymphocytes % 13.7 % (21.3-54.2); Mean Corpuscular HGB Conc 30.5 GM/DL (32-36); Mean Platelet Volume 12.2 FL (9.6-12.0); Neutrophils % 79.1 % (38.7-73.9); Platelet Count 167 T/CUMM (130-400); Red Blood Count 2.51 MC/CUMM (3.8-5.5); Red Cell Distribution Width 15.8 % (9.3-17.3); White Blood Count 6.1 T/CUMM (4-12)
[2021-06-05 06:12] LABS: Calcium 8.7 MG/DL (8.5-10.1); Osmolality,Calculated 293.8 MOS/KG (273-304); Potassium 4.7 MMOL/L (3.5-5.1)
[2021-06-05] MEDS: CHOLECALCIFEROL 1,000 UNIT TABLET PO SCH (09:45)
[2021-06-05] MEDS: CETIRIZINE 10 MG TABLET PO SCH (09:45)
[2021-06-05] MEDS: FENOFIBRATE 160 MG TABLET PO SCH (09:45)
[2021-06-05] MEDS: ESCITALOPRAM 10 MG TABLET PO SCH (09:45)
[2021-06-05] MEDS: FAMOTIDINE 20 MG TABLET PO SCH ×2 (09:45→21:28)
[2021-06-05] MEDS: ASCORBIC ACID 500 MG TABLET PO SCH ×2 (09:45→21:28)
[2021-06-05] MEDS: ZINC GLUCONATE 50 MG TABLET PO SCH (09:45)
[2021-06-05] MEDS: ASPIRIN CHEW 81 MG TABLET PO SCH (09:45)
[2021-06-05] MEDS: DOCUSATE SODIUM 100 MG/10 ML UDCUP PO SCH ×2 (09:45→21:28)
[2021-06-05] MEDS: methylPREDNISolone SOD SUC 40 MG/1 ML VIAL IV SCH ×2 (09:46→21:29)
[2021-06-05] MEDS: FERROUS SULFATE 325 MG TABLET PO SCH ×2 (09:46→21:28)
[2021-06-05] MEDS: BUDESONIDE/FORMOTEROL 160-4.5 INHALER 6 GM INH SCH ×2 (09:46→21:29)
[2021-06-05] MEDS: MENTHOL/ZINC OXIDE OINT 71 GM JAR TOP SCH ×2 (09:46→21:29)
[2021-06-05] MEDS: amLODIPine 5 MG TABLET PO SCH (09:46)
[2021-06-05] MEDS: GABAPENTIN 300 MG CAPSULE PO SCH (09:46)
[2021-06-05] MEDS: METOPROLOL TARTRATE 25 MG TABLET PO SCH ×2 (09:46→21:28)
[2021-06-05] MEDS ORDERED: EPINEPHrine 1 MG/10 ML SYRINGE IV ONE (17:13)
[2021-06-05] MEDS ORDERED: SODIUM BICARBONATE 50 MEQ/50 ML SYRINGE IV ONE (17:13)
[2021-06-05] MEDS: INSULIN GLARGINE 100 UNIT/ML SUBCUT SCH (21:28)
[2021-06-05] MEDS: SIMVASTATIN 20 MG TABLET PO SCH (21:28)
[2021-06-05] MEDS: OLANZapine 2.5 MG TABLET PO SCH (21:28)
[2021-06-05] MEDS ORDERED: SODIUM CHLORIDE 0.9% 1,000 ML IV PRN (23:22)
[2021-06-06 00:59] LABS: Calcium 8.8 MG/DL (8.5-10.1); Osmolality,Calculated 292.1 MOS/KG (273-304); Potassium 4.6 MMOL/L (3.5-5.1)
[2021-06-06 01:06] LABS: Basophils % 0.1 % (0.0-0.8); Eosinophils % 0.5 % (0.00-10.9); Hemoglobin 7.6 GM/DL (12.0-16.0); Immature Granulocytes % 1.1 %; Immature Granulocytes Absolute 0.08 #; Lymphocytes % 13.9 % (21.3-54.2); Mean Corpuscular HGB Conc 31.7 GM/DL (32-36); Mean Corpuscular Volume 90.6 FL (87-102); Mean Platelet Volume 12.2 FL (9.6-12.0); Monocytes % 5.6 % (1.7-12.7); Neutrophils % 78.8 % (38.7-73.9); Platelet Count 189 T/CUMM (130-400); Red Blood Count 2.65 MC/CUMM (3.8-5.5); Red Cell Distribution Width 15.9 % (9.3-17.3); White Blood Count 7.4 T/CUMM (4-12)
[2021-06-06] MEDS: INSULIN REGULAR 100 UNIT/ML SUBCUT SCH ×4 (03:55→19:23)
[2021-06-06] MEDS: MEROPENEM 500 MG in SODIUM CHLORIDE 0.9% 100 ML IV SCH ×3 (04:08→22:22)
[2021-06-06] MEDS: ASCORBIC ACID 500 MG TABLET PO SCH ×2 (09:42→20:57)
[2021-06-06] MEDS: CHOLECALCIFEROL 1,000 UNIT TABLET PO SCH (09:42)
[2021-06-06] MEDS: FENOFIBRATE 160 MG TABLET PO SCH (09:42)
[2021-06-06] MEDS: ASPIRIN CHEW 81 MG TABLET PO SCH (09:42)
[2021-06-06] MEDS: FERROUS SULFATE 325 MG TABLET PO SCH ×2 (09:42→20:58)
[2021-06-06] MEDS: ZINC GLUCONATE 50 MG TABLET PO SCH (09:42)
[2021-06-06] MEDS: FAMOTIDINE 20 MG TABLET PO SCH ×2 (09:42→20:58)
[2021-06-06] MEDS: DOCUSATE SODIUM 100 MG/10 ML UDCUP PO SCH ×2 (09:43→20:58)
[2021-06-06] MEDS: GABAPENTIN 300 MG CAPSULE PO SCH (09:43)
[2021-06-06] MEDS: METOPROLOL TARTRATE 25 MG TABLET PO SCH ×2 (09:43→20:57)
[2021-06-06] MEDS: amLODIPine 5 MG TABLET PO SCH (09:43)
[2021-06-06] MEDS: MENTHOL/ZINC OXIDE OINT 71 GM JAR TOP SCH ×2 (09:43→20:59)
[2021-06-06] MEDS: CETIRIZINE 10 MG TABLET PO SCH (09:43)
[2021-06-06] MEDS: BUDESONIDE/FORMOTEROL 160-4.5 INHALER 6 GM INH SCH ×2 (09:44→20:59)
[2021-06-06] MEDS: methylPREDNISolone SOD SUC 40 MG/1 ML VIAL IV SCH ×2 (09:44→20:59)
[2021-06-06] MEDS: ESCITALOPRAM 10 MG TABLET PO SCH (09:44)
[2021-06-06] MEDS: SIMVASTATIN 20 MG TABLET PO SCH (20:57)
[2021-06-06] MEDS: OLANZapine 2.5 MG TABLET PO SCH (20:57)
[2021-06-06] MEDS: INSULIN GLARGINE 100 UNIT/ML SUBCUT SCH (20:58)
[2021-06-06 23:55] LABS: Hematocrit 31.7 VOL% (35.7-47.0); Hemoglobin 10.4 GM/DL (12.0-16.0)
[2021-06-07] MEDS: INSULIN REGULAR 100 UNIT/ML SUBCUT SCH ×5 (00:10→17:26)
[2021-06-07] MEDS: MEROPENEM 500 MG in SODIUM CHLORIDE 0.9% 100 ML IV SCH ×4 (03:17→22:03)
[2021-06-07 06:04] LABS: Alanine Aminotransferase 18 U/L (13-56); Albumin 2.3 G/DL (3.4-5.0); Alkaline Phosphatase 36 U/L (45-117); Aspartate Amino Transferase 18 U/L (0-37); Bilirubin,Total < 0.39 MG/DL (0.20-1.00); Blood Urea Nitrogen 24 MG/DL (7-18); Calcium 8.7 MG/DL (8.5-10.1); Carbon Dioxide 27 MMOL/L (21-32); Estimated Glom Filtration Rate 113 ML/MIN; Glucose 58 MG/DL (74-106); Osmolality,Calculated 284.1 MOS/KG (273-304); Potassium 4.6 MMOL/L (3.5-5.1); Sodium 142 MMOL/L (136-145); Total Protein 5.2 G/DL (6.4-8.2)
[2021-06-07] MEDS: DEXTROSE 50% 25 GM/50 ML VIAL IV PRN (06:29)
[2021-06-07 06:41] LABS: Basophils % 0.2 % (0.0-0.8); Eosinophils % 0.2 % (0.00-10.9); Hematocrit 33.6 VOL% (35.7-47.0); Hemoglobin 10.8 GM/DL (12.0-16.0); Immature Granulocytes % 1.4 %; Immature Granulocytes Absolute 0.09 #; Lymphocytes # 1.2 10*3/uL (1.4-4.0); Lymphocytes % 17.8 % (21.3-54.2); Mean Corpuscular HGB Conc 32.1 GM/DL (32-36); Mean Corpuscular Volume 90.6 FL (87-102); Mean Platelet Volume 11.9 FL (9.6-12.0); Monocytes % 6.5 % (1.7-12.7); Neutrophils % 73.9 % (38.7-73.9); Platelet Count 185 T/CUMM (130-400); Red Blood Count 3.71 MC/CUMM (3.8-5.5); Red Cell Distribution Width 15.5 % (9.3-17.3); White Blood Count 6.5 T/CUMM (4-12)
[2021-06-07] MEDS: ASCORBIC ACID 500 MG TABLET PO SCH ×2 (09:04→20:22)
[2021-06-07] MEDS: METOPROLOL TARTRATE 25 MG TABLET PO SCH ×2 (09:04→20:23)
[2021-06-07] MEDS: methylPREDNISolone SOD SUC 40 MG/1 ML VIAL IV SCH ×2 (09:04→20:25)
[2021-06-07] MEDS: CHOLECALCIFEROL 1,000 UNIT TABLET PO SCH (09:04)
[2021-06-07] MEDS: CETIRIZINE 10 MG TABLET PO SCH (09:04)
[2021-06-07] MEDS: ESCITALOPRAM 10 MG TABLET PO SCH (09:04)
[2021-06-07] MEDS: ASPIRIN CHEW 81 MG TABLET PO SCH (09:04)
[2021-06-07] MEDS: ZINC GLUCONATE 50 MG TABLET PO SCH (09:05)
[2021-06-07] MEDS: FAMOTIDINE 20 MG TABLET PO SCH ×2 (09:05→20:23)
[2021-06-07] MEDS: amLODIPine 5 MG TABLET PO SCH (09:05)
[2021-06-07] MEDS: FERROUS SULFATE 325 MG TABLET PO SCH ×2 (09:05→20:22)
[2021-06-07] MEDS: FENOFIBRATE 160 MG TABLET PO SCH (09:05)
[2021-06-07] MEDS: MENTHOL/ZINC OXIDE OINT 71 GM JAR TOP SCH ×2 (09:05→20:23)
[2021-06-07] MEDS: DOCUSATE SODIUM 100 MG/10 ML UDCUP PO SCH ×2 (09:05→20:23)
[2021-06-07] MEDS: GABAPENTIN 300 MG CAPSULE PO SCH (09:05)
[2021-06-07] MEDS: BUDESONIDE/FORMOTEROL 160-4.5 INHALER 6 GM INH SCH ×2 (09:18→20:23)
[2021-06-07] MEDS: OLANZapine 2.5 MG TABLET PO SCH (20:22)
[2021-06-07] MEDS: SIMVASTATIN 20 MG TABLET PO SCH (20:22)
[2021-06-07] MEDS: INSULIN GLARGINE 100 UNIT/ML SUBCUT SCH (20:25)
[2021-06-08] MEDS: INSULIN REGULAR 100 UNIT/ML SUBCUT SCH ×5 (00:10→23:23)
[2021-06-08] MEDS: MEROPENEM 500 MG in SODIUM CHLORIDE 0.9% 100 ML IV SCH ×4 (02:55→21:29)
[2021-06-08] MEDS: ASPIRIN CHEW 81 MG TABLET PO SCH (08:45)
[2021-06-08] MEDS: ZINC GLUCONATE 50 MG TABLET PO SCH (08:45)
[2021-06-08] MEDS: GABAPENTIN 300 MG CAPSULE PO SCH (08:45)
[2021-06-08] MEDS: FAMOTIDINE 20 MG TABLET PO SCH ×2 (08:45→20:54)
[2021-06-08] MEDS: METOPROLOL TARTRATE 25 MG TABLET PO SCH ×2 (08:46→20:54)
[2021-06-08] MEDS: CETIRIZINE 10 MG TABLET PO SCH (08:46)
[2021-06-08] MEDS: ASCORBIC ACID 500 MG TABLET PO SCH ×2 (08:46→20:54)
[2021-06-08] MEDS: FENOFIBRATE 160 MG TABLET PO SCH (08:46)
[2021-06-08] MEDS: CHOLECALCIFEROL 1,000 UNIT TABLET PO SCH (08:46)
[2021-06-08] MEDS: FERROUS SULFATE 325 MG TABLET PO SCH ×2 (08:46→20:54)
[2021-06-08] MEDS: ESCITALOPRAM 10 MG TABLET PO SCH (08:46)
[2021-06-08] MEDS: amLODIPine 5 MG TABLET PO SCH (08:46)
[2021-06-08] MEDS: DOCUSATE SODIUM 100 MG/10 ML UDCUP PO SCH ×2 (08:46→20:55)
[2021-06-08] MEDS: methylPREDNISolone SOD SUC 40 MG/1 ML VIAL IV SCH ×2 (08:48→21:07)
[2021-06-08] MEDS: MENTHOL/ZINC OXIDE OINT 71 GM JAR TOP SCH ×2 (09:49→20:55)
[2021-06-08] MEDS: BUDESONIDE/FORMOTEROL 160-4.5 INHALER 6 GM INH SCH ×2 (09:49→20:55)
[2021-06-08] MEDS: SIMVASTATIN 20 MG TABLET PO SCH (20:54)
[2021-06-08] MEDS: OLANZapine 2.5 MG TABLET PO SCH (20:54)
[2021-06-08] MEDS: INSULIN GLARGINE 100 UNIT/ML SUBCUT SCH (20:55)
[2021-06-09] MEDS: MEROPENEM 500 MG in SODIUM CHLORIDE 0.9% 100 ML IV SCH ×3 (03:44→15:54)
[2021-06-09] MEDS: INSULIN REGULAR 100 UNIT/ML SUBCUT SCH ×3 (06:20→18:26)
[2021-06-09] MEDS: methylPREDNISolone SOD SUC 40 MG/1 ML VIAL IV SCH ×2 (09:54→23:48)
[2021-06-09] MEDS: FENOFIBRATE 160 MG TABLET PO SCH (09:54)
[2021-06-09] MEDS: GABAPENTIN 300 MG CAPSULE PO SCH (09:54)
[2021-06-09] MEDS: FAMOTIDINE 20 MG TABLET PO SCH ×2 (09:54→23:47)
[2021-06-09] MEDS: ASPIRIN CHEW 81 MG TABLET PO SCH (09:54)
[2021-06-09] MEDS: FERROUS SULFATE 325 MG TABLET PO SCH ×2 (09:54→23:47)
[2021-06-09] MEDS: ZINC GLUCONATE 50 MG TABLET PO SCH (09:54)
[2021-06-09] MEDS: CETIRIZINE 10 MG TABLET PO SCH (09:54)
[2021-06-09] MEDS: ASCORBIC ACID 500 MG TABLET PO SCH ×2 (09:54→23:46)
[2021-06-09] MEDS: METOPROLOL TARTRATE 25 MG TABLET PO SCH ×2 (09:55→23:46)
[2021-06-09] MEDS: BUDESONIDE/FORMOTEROL 160-4.5 INHALER 6 GM INH SCH ×2 (09:55→23:49)
[2021-06-09] MEDS: CHOLECALCIFEROL 1,000 UNIT TABLET PO SCH (09:55)
[2021-06-09] MEDS: ESCITALOPRAM 10 MG TABLET PO SCH (09:55)
[2021-06-09] MEDS: DOCUSATE SODIUM 100 MG/10 ML UDCUP PO SCH ×2 (09:55→23:46)
[2021-06-09] MEDS: MENTHOL/ZINC OXIDE OINT 71 GM JAR TOP SCH ×2 (09:55→23:50)
[2021-06-09] MEDS: amLODIPine 5 MG TABLET PO SCH (09:55)
[2021-06-09] MEDS: SIMVASTATIN 20 MG TABLET PO SCH (23:47)
[2021-06-09] MEDS: OLANZapine 2.5 MG TABLET PO SCH (23:47)
[2021-06-09] MEDS: INSULIN GLARGINE 100 UNIT/ML SUBCUT SCH (23:47)
[2021-06-10] MEDS: INSULIN REGULAR 100 UNIT/ML SUBCUT SCH ×3 (00:07→13:41)
[2021-06-10] MEDS: MEROPENEM 500 MG in SODIUM CHLORIDE 0.9% 100 ML IV SCH (00:26)
[2021-06-10] MEDS: ASPIRIN CHEW 81 MG TABLET PO SCH (08:47)
[2021-06-10] MEDS: FENOFIBRATE 160 MG TABLET PO SCH (08:47)
[2021-06-10] MEDS: CETIRIZINE 10 MG TABLET PO SCH (08:48)
[2021-06-10] MEDS: CHOLECALCIFEROL 1,000 UNIT TABLET PO SCH (08:48)
[2021-06-10] MEDS: amLODIPine 5 MG TABLET PO SCH (08:48)
[2021-06-10] MEDS: ESCITALOPRAM 10 MG TABLET PO SCH (08:48)
[2021-06-10] MEDS: BUDESONIDE/FORMOTEROL 160-4.5 INHALER 6 GM INH SCH (08:48)
[2021-06-10] MEDS: GABAPENTIN 300 MG CAPSULE PO SCH (08:48)
[2021-06-10] MEDS: ZINC GLUCONATE 50 MG TABLET PO SCH (08:48)
[2021-06-10] MEDS: FERROUS SULFATE 325 MG TABLET PO SCH (08:48)
[2021-06-10] MEDS: DOCUSATE SODIUM 100 MG/10 ML UDCUP PO SCH (08:48)
[2021-06-10] MEDS: FAMOTIDINE 20 MG TABLET PO SCH (08:48)
[2021-06-10] MEDS: ASCORBIC ACID 500 MG TABLET PO SCH (08:48)
[2021-06-10] MEDS: METOPROLOL TARTRATE 25 MG TABLET PO SCH (08:48)
[2021-06-10] MEDS: MENTHOL/ZINC OXIDE OINT 71 GM JAR TOP SCH (08:49)
[2021-06-10] MEDS: methylPREDNISolone SOD SUC 40 MG/1 ML VIAL IV SCH (09:21)
[2021-06-10 12:22] VITALS: BP 117/68
== END 2021-06-10 14:37 | disposition swing bed (61) | DRG 4 ==
LOC: N.ED 14:56 → SUATTDRO 17:57 → N.EDINP 17:57 → N.2E 04-16 16:01 → N.CC 04-18 09:08 → N.3E 05-23 16:10 → N.ICU 05-30 03:51 → N.TELES 06-02 19:15
PROVIDERS: ADMIT Internal Medicine; ATTEND Internal Medicine
PROC: EGDWPEG (ICD-10-PCS; 2021-05-08 10:48)